=== PATIENT | male | born 1950 | race Caucasian/White ===

== ENCOUNTER 2018-05-19 12:36 | Emergency (ER) | payer MEDICARE ==
[2018-05-19] MEDS ORDERED: RX INFO: IV CONTRAST WAS GIVEN 1 EACH MISC MISCELLANE PRN (12:46)
[2018-05-19] MEDS ORDERED: MORPHINE SULFATE 4 MG/ML SYRINGE IVP STA (12:47)
[2018-05-19] MEDS ORDERED: ONDANSETRON 4 MG/2 ML VIAL IVP STA (12:47)
--- NOTE | 2018-05-19 13:09 | ED ---
Extremity Problem HPI <Low Amos - Last Filed: 05/19/18 17:01> - General Source: patient, RN notes reviewed Mode of arrival: ambulatory Limitations: no limitations <Gamal Martinez - Last Filed: 05/19/18 17:08> - General Chief complaint: Extremity Problem,Nontraumatic Stated complaint: leg pain Time Seen by Provider: 05/19/18 12:39 - History of Present Illness Initial comments: This is a 67-year-old male presents emergency Department chief complaint of right leg pain. He's had progressive worsening over the Last 5 days. He states he is seen at [facility] and told nothing was wrong. He states that he's been taking as [place] though presents having increasing pain and swelling. Patient states that he has no known vascular issues. Patient states she's had no trauma no fever no chills. Patient is a daily smoker. He states his chronic back issues but has had no issues with his lower extremities. Patient states that he feels they cannot move it because it so painful. (Gamal Martinez) - Related Data Home Medications Medication Instructions Recorded Confirmed No Known Home Medications 05/19/18 05/19/18 Allergies Allergy/AdvReac Type Severity Reaction Status Date / Time No Known Allergies Allergy Verified 05/19/18 12:54 Review of Systems ROS Other: All systems not noted in ROS Statement are negative. <Low Amos - Last Filed: 05/19/18 17:01> ROS Other: All systems not noted in ROS Statement are negative. <Gamal Martinez - Last Filed: 05/19/18 17:08> ROS Statement: Those systems with pertinent positive or pertinent negative responses have been documented in the HPI. Past Medical History Additional Past Medical History / Comment(s): BACK PAIN History of Any Multi-Drug Resistant Organisms: None Reported Additional Past Surgical History / Comment(s): THUMB SURGERY RIGHT HAND Past Psychological History: No Psychological Hx Reported Smoking Status: Former smoker Past Alcohol Use History: None Reported Past Drug Use History: None Reported, Prescription Drug Abuse <Gamal Martinez - Last Filed: 05/19/18 17:08> General Exam Limitations: no limitations General appearance: alert, in no apparent distress Respiratory exam: Present: normal lung sounds bilaterally. Absent: respiratory distress, wheezes, rales, rhonchi, stridor Cardiovascular Exam: Present: regular rate, normal rhythm, normal heart sounds. Absent: systolic murmur, diastolic murmur, rubs, gallop, clicks Extremities exam: Present: other (Right lower extremity is noted to the nail, there is no palpable dorsal pedispulse or posterior tibialis, Dopplers attempted unable to obtain pulse. There pulse at popliteal region ) <Gamal Martinez - Last Filed: 05/19/18 17:08> Course <Low Amos - Last Filed: 05/19/18 17:01> <Gamal Martinez - Last Filed: 05/19/18 17:08> Vital Signs 05/19/18 05/19/18 12:40 14:42 Temperature 98.0 F Pulse Rate 88 89 Respiratory 20 18 Rate Blood Pressure 207/81 172/77 O2 Sat by Pulse 97 97 Oximetry - Reevaluation(s) Reevaluation #1: 05/19/18 16:22 Patient reevaluated by myself, Dr. Amos. Computed tomography scan reviewed. Patient and family updated. Patient states he has been dealing with lower back pain since the legs for several weeks now. Patient does have some history of chronic lower back pain. Patient states his leg change color today. Patient states it was white however states it was black/purplish. Color has returned at this point. Unable to palpate pedal pulses. Cap refill 3-4 seconds on the right. Cap refill 2-3 seconds on the left. No abnormal temperature. No significant discomfort at this time. 05/19/18 16:42 Case was discussed in detail with Dr. Toussaint, who will come evaluate the patient. 05/19/18 17:01 Patient was seen by Dr. Toussaint who did talk to Dr. Ruiz, vascular surgeon at [facility] who will accept transfer. ER will be notified. (Low Amos) Medical Decision Making - Lab Data Result diagrams: 05/19/18 13:11 05/19/18 13:30 <Low Amos - Last Filed: 05/19/18 17:01> - Lab Data Result diagrams: 05/19/18 13:11 05/19/18 13:30 <Gamal Martinez - Last Filed: 05/19/18 17:08> - Medical Decision Making 67-year-old male presented for right leg pain. 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 Patient was evaluated by a vascular surgeon here and will be transferred to [facility]. Case discussed with Dr. Ruiz and Dr. Wilson ([facility]) - Lab Data Lab Results 05/19/18 05/19/18 05/19/18 Range/Units 13:11 13:11 13:30 WBC 14.0 H (3.8-10.6) k/uL RBC 3.99 L (4.30-5.90) m/uL Hgb 14.5 (13.0-17.5) gm/dL Hct 42.1 (39.0-53.0) % MCV 105.6 H (80.0-100.0) fL MCH 36.5 H (25.0-35.0) pg MCHC 34.6 (31.0-37.0) g/dL RDW 14.2 (11.5-15.5) % Plt Count 299 (150-450) k/uL Neutrophils % 80 % Lymphocytes % 11 % Monocytes % 7 % Eosinophils % 1 % Basophils % 0 % Neutrophils # 11.1 H (1.3-7.7) k/uL Lymphocytes # 1.5 (1.0-4.8) k/uL Monocytes # 1.0 (0-1.0) k/uL Eosinophils # 0.1 (0-0.7) k/uL Basophils # 0.0 (0-0.2) k/uL Macrocytosis Moderate PT 10.2 (9.0-12.0) sec INR 1.0 (<1.2) APTT 24.5 (22.0-30.0) sec Sodium 135 L (137-145) mmol/L Potassium 4.4 (3.5-5.1) mmol/L Chloride 100 (98-107) mmol/L Carbon Dioxide 23 (22-30) mmol/L Anion Gap 12 mmol/L BUN 19 (9-20) mg/dL Creatinine 0.80 (0.66-1.25) mg/dL Est GFR (CKD-EPI)AfAm >90 (>60 ml/min/1.73 sqM) Est GFR (CKD-EPI)NonAf >90 (>60 ml/min/1.73 sqM) Glucose 111 H (74-99) mg/dL Plasma Lactic Acid Berry (0.7-2.0) mmol/L Calcium 9.2 (8.4-10.2) mg/dL Total Bilirubin 0.9 (0.2-1.3) mg/dL AST 88 H (17-59) U/L ALT 64 (21-72) U/L Alkaline Phosphatase 109 (38-126) U/L Total Protein 6.8 (6.3-8.2) g/dL Albumin 3.9 (3.5-5.0) g/dL 05/19/18 Range/Units 13:30 WBC (3.8-10.6) k/uL RBC (4.30-5.90) m/uL Hgb (13.0-17.5) gm/dL Hct (39.0-53.0) % MCV (80.0-100.0) fL MCH (25.0-35.0) pg MCHC (31.0-37.0) g/dL RDW (11.5-15.5) % Plt Count (150-450) k/uL Neutrophils % % Lymphocytes % % Monocytes % % Eosinophils % % Basophils % % Neutrophils # (1.3-7.7) k/uL Lymphocytes # (1.0-4.8) k/uL Monocytes # (0-1.0) k/uL Eosinophils # (0-0.7) k/uL Basophils # (0-0.2) k/uL Macrocytosis PT (9.0-12.0) sec INR (<1.2) APTT (22.0-30.0) sec Sodium (137-145) mmol/L Potassium (3.5-5.1) mmol/L Chloride (98-107) mmol/L Carbon Dioxide (22-30) mmol/L Anion Gap mmol/L BUN (9-20) mg/dL Creatinine (0.66-1.25) mg/dL Est GFR (CKD-EPI)AfAm (>60 ml/min/1.73 sqM) Est GFR (CKD-EPI)NonAf (>60 ml/min/1.73 sqM) Glucose (74-99) mg/dL Plasma Lactic Acid Berry 1.4 (0.7-2.0) mmol/L Calcium (8.4-10.2) mg/dL Total Bilirubin (0.2-1.3) mg/dL AST (17-59) U/L ALT (21-72) U/L Alkaline Phosphatase (38-126) U/L Total Protein (6.3-8.2) g/dL Albumin (3.5-5.0) g/dL Disposition <Low Amos - Last Filed: 05/19/18 17:01> - Out of Hospital Transfer - Req. Specs Out of Hospital Transfer - Requested Specifics: Other Emergency Center ([facility]) <Gamal Martinez - Last Filed: 05/19/18 17:08> Clinical Impression: Chronic distal aortic occlusion, Right leg pain, Occlusion of artery of lower extremity Disposition: OTHER INSTITUTION NOT DEFINED Condition: Stable Referrals: None,Stated [REFERRING] - 1-2 days
[2018-05-19 13:38] LABS: Basophils % (A) 0 %; Eosinophils # (A) 0.1 k/uL (0-0.7); Eosinophils % (A) 1 %; HCT 42.1 % (39.0-53.0); HGB 14.5 gm/dL (13.0-17.5); Lymphocytes # (A) 1.5 k/uL (1.0-4.8); Lymphocytes % (A) 11 %; MCH 36.5 pg (25.0-35.0); MCHC 34.6 g/dL (31.0-37.0); MCV 105.6 fL (80.0-100.0); Macrocytosis Moderate; Mean Platelet Volume 7.4; Monocytes % (A) 7 %; Neutrophils # (A) 11.1 k/uL (1.3-7.7); Neutrophils % (A) 80 %; Platelet Count 299 k/uL (150-450); RBC 3.99 m/uL (4.30-5.90); RDW 14.2 % (11.5-15.5)
[2018-05-19 14:13] LABS: ALT 64 U/L (21-72); AST 88 U/L (17-59); Albumin 3.9 g/dL (3.5-5.0); Alkaline Phosphatase 109 U/L (38-126); Anion Gap 12 mmol/L; Blood Urea Nitrogen 19 mg/dL (9-20); Calcium 9.2 mg/dL (8.4-10.2); Carbon Dioxide 23 mmol/L (22-30); Chloride 100 mmol/L (98-107); Glucose 111 mg/dL (74-99); Potassium 4.4 mmol/L (3.5-5.1); Sodium 135 mmol/L (137-145); Total Bilirubin 0.9 mg/dL (0.2-1.3); Total Protein 6.8 g/dL (6.3-8.2)
[2018-05-19 14:13] LABS: Partial Thromboplastin Time 24.5 sec (22.0-30.0); Prothrombin Time 10.2 sec (9.0-12.0)
[2018-05-19 15:18] VITALS: RESP 18
--- NOTE | 2018-05-19 15:35 | CT ---
CTA right lower extremity HISTORY: Pain, pulseless right foot Helical acquisition obtained from the distal abdominal aorta through the lower extremities. Coronal a nd sagittal reconstructions performed only due to technical difficulties. The distal abdominal aorta shows occlusion of the infrarenal location. The measurement of the distal abdominal aorta is approximately 3.6 cm. There is atheromatous change bilaterally, common iliac, inte rnal and external iliac arteries are also occluded. Some reconstitution of the lower extremity arteri al supply is suspected but contrast enhancement is limited. The common femoral arteries are thought t o enhance on initial scan, CT scan shows some probable enhancement of the popliteal arteries as well as the anterior tibial and posterior tibial arteries bilaterally, peroneal artery on the lateral and the segmentally. Exam is limited however. There is soft tissue swelling noted especially in the right lower extremity distally and right foot. Diverticular change noted incidentally in the sigmoid colon . Urinary bladder is distended. Prostatic calcifications are noted. Facet arthropathy noted incidenta lly in the lower lumbar spine. Small umbilical hernia contains fat. IMPRESSION: Exam is limited technically. Distal abdominal aortic occlusion. Extensive atheromatous ch anges.
[2018-05-19] MEDS ORDERED: HEPARIN SODIUM,PORCINE 5,000 UNIT/ML 1 ML VIAL IV ONE (17:01)
[2018-05-19] MEDS ORDERED: HEPARIN SODIUM,PORCINE/D5W PMX 25,000 UNIT in DEXTROSE/WATER 1 500ML.BAG IV SCH (17:15)
[2018-05-19] MEDS ORDERED: HEPARIN SOD,PORK IN 0.45% NACL 25,000 UNIT in 0.45% NACL 1 500ML.BAG IV SCH (17:30)
[2018-05-19 17:44] VITALS: BP 181/86; PULSE 65; TEMP 98
== END 2018-05-19 17:55 | disposition other institution (70) ==
LOC: EC 12:36
DX: I70.201 Unspecified atherosclerosis of native arteries of extremities, right leg (principal); I70.0 Atherosclerosis of aorta; M54.5 Low back pain; Z87.891 Personal history of nicotine dependence
CPT/HCPCS: 36415; 80053; 83605; 85025; 85610; 85730; 73706; 99285; 96374; 96375 ×2; J2270; J1644 ×2; J2405; Q9967

== ENCOUNTER 2018-06-06 11:44 | Inpatient (IN) | payer MEDICARE ==
[2018-06-06] MEDS ORDERED: SODIUM CHLORIDE 0.9% 500 ML IV STA (12:14)
[2018-06-06] MEDS ORDERED: IPRATROPIUM-ALBUTEROL 3 ML NEB INHALATION STA (12:15)
--- NOTE | 2018-06-06 12:18 | ED ---
General Adult HPI - General Chief complaint: Weakness Stated complaint: Sob Time Seen by Provider: 06/06/18 12:00 Source: patient, family, RN notes reviewed, old records reviewed Mode of arrival: wheelchair Limitations: no limitations - History of Present Illness Initial comments: 67-year-old male presents with chief complaint of generalized weakness and fatigue. Patient is 2 weeks postop from a bypass and left lower extremity fasciotomy. Patient was in rehab yesterday, he was very short of breath, he did require supplemental oxygen. He states he has been short of breath for the past several days. He recently quit smoking approximately 3 weeks ago. Denies significant cough, denies fever or chills. Denies chest pain. Patient does report pain at the incision sites, but no significant abdominal or leg pain. Denies bleeding or purulence from his incisions. Denies nausea or vomiting, he has had some diarrhea. - Related Data Home Medications Medication Instructions Recorded Confirmed Atorvastatin [Lipitor] 40 mg PO HS 06/06/18 06/06/18 Diltiazem Cd [Cardizem Cd] 180 mg PO DAILY 06/06/18 06/06/18 Docusate [Colace] 100 mg PO BID 06/06/18 06/06/18 Gabapentin 600 mg PO TID 06/06/18 06/06/18 Hydrocodone/Acetaminophen [[place] 1 tab PO TID PRN 06/06/18 06/06/18 10-325] Lisinopril [Zestril] 5 mg PO DAILY 06/06/18 06/06/18 Multivitamins, Thera [Multivitamin 1 tab PO DAILY 06/06/18 06/06/18 (formulary)] Nicotine 7Mg/24Hr Patch [Habitrol 1 patch TRANSDERM DAILY 06/06/18 06/06/18 7Mg/24Hr Patch] Pantoprazole Sodium [Protonix] 20 mg PO BID 06/06/18 06/06/18 Rivaroxaban [Xarelto] 20 mg PO DAILY 06/06/18 06/06/18 Sotalol [Betapace] 120 mg PO BID 06/06/18 06/06/18 Tamsulosin HCl [Flomax] 0.4 mg PO DAILY 06/06/18 06/06/18 Allergies Allergy/AdvReac Type Severity Reaction Status Date / Time No Known Allergies Allergy Verified 06/06/18 12:24 Review of Systems ROS Statement: Those systems with pertinent positive or pertinent negative responses have been documented in the HPI. ROS Other: All systems not noted in ROS Statement are negative. Past Medical History Additional Past Medical History / Comment(s): BACK PAIN History of Any Multi-Drug Resistant Organisms: None Reported Additional Past Surgical History / Comment(s): THUMB SURGERY RIGHT HAND, bypass Past Psychological History: No Psychological Hx Reported Smoking Status: Former smoker Past Alcohol Use History: None Reported Past Drug Use History: None Reported, Prescription Drug Abuse General Exam Limitations: no limitations General appearance: alert, in no apparent distress Head exam: Present: atraumatic, normocephalic Eye exam: Present: normal appearance, PERRL ENT exam: Present: mucous membranes dry Neck exam: Present: normal inspection. Absent: tenderness, meningismus Respiratory exam: Present: normal lung sounds bilaterally. Absent: respiratory distress, wheezes Cardiovascular Exam: Present: normal rhythm, tachycardia GI/Abdominal exam: Present: soft, tenderness (Mild tenderness at the incision site). Absent: distended Extremities exam: Present: other (Distal pulses intact, strong pulses on the left DP, thready pulse rate DP, both extremities are warm.) Neurological exam: Present: alert, oriented X3, CN II-XII intact. Absent: motor sensory deficit Psychiatric exam: Present: normal affect, normal mood Skin exam: Present: warm, dry, pallor Course Vital Signs 06/06/18 06/06/18 06/06/18 11:47 12:54 13:00 Temperature 98.3 F Pulse Rate 123 H 107 H 102 H Respiratory 18 18 Rate Blood Pressure 113/71 116/71 O2 Sat by Pulse 98 95 Oximetry 06/06/18 06/06/18 13:02 16:00 Temperature Pulse Rate 107 H 107 H Respiratory 18 Rate Blood Pressure 124/70 O2 Sat by Pulse 96 Oximetry EKG Findings - EKG Comments: EKG Findings:: EKG: Age fibrillation with RVR, incomplete right bundle, rate of 1:15, QRS duration [address] segment elevation Medical Decision Making - Medical Decision Making 67 -year-old male presenting with generalized weakness. Patient does have some generalized abdominal pain on exam. He had recent aortofemoral bypass. Distal pulses are intact, and incisional sites are clean, no purulence. Workup reveals elevated white count of 26,000, hemoglobin 10.6 which is down trending, CMP is unremarkable. Urinalysis is clear, no signs of infection, chest x-ray negative for focal pneumonia. CT of the aorta with distal runoff is obtained given the patient's recent vascular surgery. The shows an occluded right femoral artery at 11.1 cm with good distal flow. This finding is discussed with the patient's vascular surgeon Dr. Ruiz. He saw the patient the office yesterday. He states this is normal postoperative vascular CT. CT also shows colitis which does indicate cause for patient's generalized abdominal pain. He has had recent antibiotic exposure, as well as some diarrhea. C. difficile toxin will be obtained. Lactic acid is normal in this patient. He receives IV hydration. He will be admitted for symptomatic treatment. Infectious disease placed on consult as well as gastroenterology at the recommendation of the patient's admitting physician Dr. Amanda. Patient is given broad-spectrum antibiotics in the emergency department. - Lab Data Result diagrams: 06/06/18 12:40 06/06/18 12:40 Lab Results 06/06/18 06/06/18 06/06/18 Range/Units 12:40 12:40 12:40 WBC 26.2 H* (3.8-10.6) k/uL RBC 3.12 L (4.30-5.90) m/uL Hgb 10.6 L D (13.0-17.5) gm/dL Hct 33.2 L (39.0-53.0) % MCV 106.5 H (80.0-100.0) fL MCH 34.0 (25.0-35.0) pg MCHC 31.9 (31.0-37.0) g/dL RDW 14.1 (11.5-15.5) % Plt Count 542 H (150-450) k/uL Neutrophils % 89 % Lymphocytes % 5 % Monocytes % 4 % Eosinophils % 0 % Basophils % 0 % Neutrophils # 23.4 H (1.3-7.7) k/uL Lymphocytes # 1.4 (1.0-4.8) k/uL Monocytes # 1.1 H (0-1.0) k/uL Eosinophils # 0.1 (0-0.7) k/uL Basophils # 0.0 (0-0.2) k/uL Macrocytosis Moderate PT (9.0-12.0) sec INR (<1.2) APTT (22.0-30.0) sec Sodium 137 (137-145) mmol/L Potassium 4.3 (3.5-5.1) mmol/L Chloride 103 (98-107) mmol/L Carbon Dioxide 25 (22-30) mmol/L Anion Gap 9 mmol/L BUN 23 H (9-20) mg/dL Creatinine 0.70 (0.66-1.25) mg/dL Est GFR (CKD-EPI)AfAm >90 (>60 ml/min/1.73 sqM) Est GFR (CKD-EPI)NonAf >90 (>60 ml/min/1.73 sqM) Glucose 119 H (74-99) mg/dL Plasma Lactic Acid Berry (0.7-2.0) mmol/L Calcium 8.9 (8.4-10.2) mg/dL Magnesium 2.2 (1.6-2.3) mg/dL Total Bilirubin 0.6 (0.2-1.3) mg/dL AST 31 (17-59) U/L ALT 43 (21-72) U/L Alkaline Phosphatase 143 H (38-126) U/L Total Creatine Kinase 50 L (55-170) U/L CK-MB (CK-2) 1.9 (0.0-2.4) ng/mL CK-MB (CK-2) Rel Index 3.8 Troponin I <0.012 (0.000-0.034) ng/mL NT-Pro-B Natriuret Pep pg/mL Total Protein 6.5 (6.3-8.2) g/dL Albumin 3.3 L (3.5-5.0) g/dL Urine Color Urine Appearance (Clear) Urine pH (5.0-8.0) Ur Specific Hardy (1.001-1.035) Urine Protein (Negative) Urine Glucose (UA) (Negative) Urine Ketones (Negative) Urine Blood (Negative) Urine Nitrite (Negative) Urine Bilirubin (Negative) Urine Urobilinogen (<2.0) mg/dL Ur Leukocyte Esterase (Negative) 06/06/18 06/06/18 06/06/18 Range/Units 12:40 12:40 12:40 WBC (3.8-10.6) k/uL RBC (4.30-5.90) m/uL Hgb (13.0-17.5) gm/dL Hct (39.0-53.0) % MCV (80.0-100.0) fL MCH (25.0-35.0) pg MCHC (31.0-37.0) g/dL RDW (11.5-15.5) % Plt Count (150-450) k/uL Neutrophils % % Lymphocytes % % Monocytes % % Eosinophils % % Basophils % % Neutrophils # (1.3-7.7) k/uL Lymphocytes # (1.0-4.8) k/uL Monocytes # (0-1.0) k/uL Eosinophils # (0-0.7) k/uL Basophils # (0-0.2) k/uL Macrocytosis PT 11.8 (9.0-12.0) sec INR 1.2 H (<1.2) APTT 27.9 (22.0-30.0) sec Sodium (137-145) mmol/L Potassium (3.5-5.1) mmol/L Chloride (98-107) mmol/L Carbon Dioxide (22-30) mmol/L Anion Gap mmol/L BUN (9-20) mg/dL Creatinine (0.66-1.25) mg/dL Est GFR (CKD-EPI)AfAm (>60 ml/min/1.73 sqM) Est GFR (CKD-EPI)NonAf (>60 ml/min/1.73 sqM) Glucose (74-99) mg/dL Plasma Lactic Acid Berry 1.9 (0.7-2.0) mmol/L Calcium (8.4-10.2) mg/dL Magnesium (1.6-2.3) mg/dL Total Bilirubin (0.2-1.3) mg/dL AST (17-59) U/L ALT (21-72) U/L Alkaline Phosphatase (38-126) U/L Total Creatine Kinase (55-170) U/L CK-MB (CK-2) (0.0-2.4) ng/mL CK-MB (CK-2) Rel Index Troponin I (0.000-0.034) ng/mL NT-Pro-B Natriuret Pep 1680 pg/mL Total Protein (6.3-8.2) g/dL Albumin (3.5-5.0) g/dL Urine Color Urine Appearance (Clear) Urine pH (5.0-8.0) Ur Specific Hardy (1.001-1.035) Urine Protein (Negative) Urine Glucose (UA) (Negative) Urine Ketones (Negative) Urine Blood (Negative) Urine Nitrite (Negative) Urine Bilirubin (Negative) Urine Urobilinogen (<2.0) mg/dL Ur Leukocyte Esterase (Negative) 06/06/18 Range/Units 13:40 WBC (3.8-10.6) k/uL RBC (4.30-5.90) m/uL Hgb (13.0-17.5) gm/dL Hct (39.0-53.0) % MCV (80.0-100.0) fL MCH (25.0-35.0) pg MCHC (31.0-37.0) g/dL RDW (11.5-15.5) % Plt Count (150-450) k/uL Neutrophils % % Lymphocytes % % Monocytes % % Eosinophils % % Basophils % % Neutrophils # (1.3-7.7) k/uL Lymphocytes # (1.0-4.8) k/uL Monocytes # (0-1.0) k/uL Eosinophils # (0-0.7) k/uL Basophils # (0-0.2) k/uL Macrocytosis PT (9.0-12.0) sec INR (<1.2) APTT (22.0-30.0) sec Sodium (137-145) mmol/L Potassium (3.5-5.1) mmol/L Chloride (98-107) mmol/L Carbon Dioxide (22-30) mmol/L Anion Gap mmol/L BUN (9-20) mg/dL Creatinine (0.66-1.25) mg/dL Est GFR (CKD-EPI)AfAm (>60 ml/min/1.73 sqM) Est GFR (CKD-EPI)NonAf (>60 ml/min/1.73 sqM) Glucose (74-99) mg/dL Plasma Lactic Acid Berry (0.7-2.0) mmol/L Calcium (8.4-10.2) mg/dL Magnesium (1.6-2.3) mg/dL Total Bilirubin (0.2-1.3) mg/dL AST (17-59) U/L ALT (21-72) U/L Alkaline Phosphatase (38-126) U/L Total Creatine Kinase (55-170) U/L CK-MB (CK-2) (0.0-2.4) ng/mL CK-MB (CK-2) Rel Index Troponin I (0.000-0.034) ng/mL NT-Pro-B Natriuret Pep pg/mL Total Protein (6.3-8.2) g/dL Albumin (3.5-5.0) g/dL Urine Color Yellow Urine Appearance Clear (Clear) Urine pH 5.5 (5.0-8.0) Ur Specific [place] 1.018 (1.001-1.035) Urine Protein Trace H (Negative) Urine Glucose (UA) Negative (Negative) Urine Ketones Negative (Negative) Urine Blood Negative (Negative) Urine Nitrite Negative (Negative) Urine Bilirubin Negative (Negative) Urine Urobilinogen <2.0 (<2.0) mg/dL Ur Leukocyte Esterase Negative (Negative) Disposition Clinical Impression: Dehydration, Colitis, Diarrhea Disposition: ADMITTED IP TO THIS [facility] Condition: Stable Is patient prescribed a controlled substance at d/c from ED?: No Referrals: Chilango Elizondo DO [Primary Care Provider] - 1-2 days Decision to Admit Reason: Admit from EC Decision Date: 06/06/18 Decision Time: 16:15
[2018-06-06 13:09] LABS: Basophils % (A) 0 %; Eosinophils # (A) 0.1 k/uL (0-0.7); Eosinophils % (A) 0 %; HCT 33.2 % (39.0-53.0); Lymphocytes # (A) 1.4 k/uL (1.0-4.8); Lymphocytes % (A) 5 %; MCHC 31.9 g/dL (31.0-37.0); MCV 106.5 fL (80.0-100.0); Macrocytosis Moderate; Mean Platelet Volume 6.9; Monocytes # (A) 1.1 k/uL (0-1.0); Monocytes % (A) 4 %; Neutrophils # (A) 23.4 k/uL (1.3-7.7); Neutrophils % (A) 89 %; Platelet Count 542 k/uL (150-450); RBC 3.12 m/uL (4.30-5.90); RDW 14.1 % (11.5-15.5)
[2018-06-06 13:11] LABS: ALT 43 U/L (21-72); AST 31 U/L (17-59); Albumin 3.3 g/dL (3.5-5.0); Alkaline Phosphatase 143 U/L (38-126); Anion Gap 9 mmol/L; Blood Urea Nitrogen 23 mg/dL (9-20); Calcium 8.9 mg/dL (8.4-10.2); Carbon Dioxide 25 mmol/L (22-30); Chloride 103 mmol/L (98-107); Glucose 119 mg/dL (74-99); HGB 10.6 gm/dL (13.0-17.5); Magnesium 2.2 mg/dL (1.6-2.3); Potassium 4.3 mmol/L (3.5-5.1); Sodium 137 mmol/L (137-145); Total Bilirubin 0.6 mg/dL (0.2-1.3); Total Protein 6.5 g/dL (6.3-8.2); WBC 26.2 k/uL (3.8-10.6)
[2018-06-06] MEDS ORDERED: VANCOMYCIN IV PER PHARMACY 1 EACH MISC MISCELLANE PRN (13:14)
[2018-06-06] MEDS ORDERED: cefTRIAXone IN SWFI 1,000 MG/10 ML SYRINGE IVP STA (13:14)
[2018-06-06] MEDS ORDERED: VANCOMYCIN 1,500 MG in SODIUM CHLORIDE 0.9% 250 ML IVPB STA (13:19)
[2018-06-06 13:20] LABS: Creatine Kinase 50 U/L (55-170)
[2018-06-06 13:21] LABS: INR 1.2 (<1.2); Partial Thromboplastin Time 27.9 sec (22.0-30.0); Prothrombin Time 11.8 sec (9.0-12.0)
[2018-06-06] MEDS ORDERED: SODIUM CHLORIDE 0.9% 500 ML IV ONE ×2 (13:21→16:41)
--- NOTE | 2018-06-06 13:32 | XR ---
EXAMINATION TYPE: XR chest 2V DATE OF EXAM: 06/06/2018 COMPARISON: NONE HISTORY: Weakness TECHNIQUE: Frontal and lateral views of the chest are obtained. FINDINGS: There is no focal air space opacity, pleural effusion, or pneumothorax seen. There is mild right hemidiaphragm elevation. The cardiac silhouette size is within normal limits. Healed fracture deformity of the left mid clavicle is present.. Moderate multilevel degenerative changes of the thora cic spine are noted. IMPRESSION: No acute cardiopulmonary process.
[2018-06-06 13:34] LABS: Creatine Kinase MB 1.9 ng/mL (0.0-2.4); Troponin I <0.012 ng/mL (0.000-0.034)
[2018-06-06 13:52] LABS: Appearance,Urine Clear (Clear); Bilirubin,Urine Negative (Negative); Blood,Urine Negative (Negative); Color,Urine Yellow; Glucose,Urine (UA) Negative (Negative); Ketones,Urine Negative (Negative); Leukocyte Esterase,Urine Negative (Negative); Nitrite,Urine Negative (Negative); PH, Urine 5.5 (5.0-8.0); Protein,Urine Trace (Negative); Specific Gravity,Urine 1.018 (1.001-1.035); Urobilinogen,Urine <2.0 mg/dL (<2.0)
[2018-06-06] MEDS ORDERED: MORPHINE SULFATE 4 MG/ML SYRINGE IVP STA (15:35)
--- NOTE | 2018-06-06 16:21 | CT ---
EXAMINATION TYPE: CT angio abd aorta w/Runoff DATE OF EXAM: 06/06/2018 COMPARISON: 05/19/2018 HISTORY: chest pain, SOB, bilateral leg numbness. hx of CABG and femoral bypass CT DLP: 3414.1 mGycm, Automated Exposure Control for Dose Reduction was Utilized. CONTRAST: CT scan of the abdomen and pelvis is performed with oral and with IV Contrast, patient injected with 205cc mL of Isovue 370. FINDINGS: VASCULATURE: There is complete occlusion of the infrarenal abdominal aorta with new aortoiliac bypass performed. T here is a new left superficial inguinal fluid collection that measures simple fluid attenuation measu ring 4.6 x 3 point for centimeters on series 4 image 86 without surrounding inflammatory change. This is favored to represent a seroma and is not contiguous with the adjacent common femoral artery and t herefore not favored to represent occluded pseudoaneurysm although that does remain a possibility. Mu ltiple prominent right superficial inguinal lymph nodes are noted. There is complete occlusion of the right femoral artery in a long segment measuring 11.1 cm with mario alberto nstitution just proximal to the popliteal artery from arterial collateralization. Right popliteal art kathya is patent however there is approximately 50% stenosis of the popliteal artery extending over appr oximately 1 cm in length due to noncalcific atheromatous plaquing. There is also nonhemodynamically s ignificant plaquing of the common peroneal trunk and anterior tibial artery with three-vessel runoff of the right lower extremity identified. There is nonhemodynamically significant atherosclerosis of the left femoral artery and approximately 60% stenosis of the left popliteal artery extending over approximately 3 cm in length. There is a nor mal trifurcation of the vasculature of the left lower extremity with three-vessel runoff to the left ankle. LUNG BASES: Minimal bibasilar subsegmental atelectasis. There is a small hiatal hernia. LIVER/GB: Grossly unremarkable although limited as enhancement is in the angiographic phase. PANCREAS: No pancreatic ductal dilatation is noted. SPLEEN: No splenomegaly. ADRENALS: Indeterminate 1.2 cm left adrenal gland nodule is present on series 4 image 31 for which fu rther characterization is recommended. Right adrenal gland is unremarkable. KIDNEYS: Kidneys enhance symmetrically without hydronephrosis. BOWEL: There is pericolonic fat stranding along the transverse colon and entirety of the descending c olon as well as the proximal sigmoid colon. Given its long segment involvement suspicion is for colit is of infectious or inflammatory etiology however ischemic etiology is also possible. Correlate with serum lactic acid levels. Numerous colonic diverticula are noted. No dilated large or small bowel. LYMPH NODES: No greater than 1cm abdominal or pelvic lymph nodes are appreciated. OSSEOUS STRUCTURES: Multilevel degenerative changes of the spine are present in addition to bilateral medial compartment arthropathy of the knees and moderate femoral acetabular arthropathy bilaterally. IMPRESSION: 1. 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 Vascular surgery consultation is recommended. 2. New aortoiliac bypass grafting without occlusion or evidence of leak. 3. Approximately 60% stenosis of the left popliteal artery extending over 3 cm in length. 4. Pericolonic fat stranding involving the transverse colon, splenic flexure, descending colon and pr oximal sigmoid colon. Suspicion is for colitis of infectious or inflammatory etiology however ischemi c etiology is possible and therefore correlation with serum lactate acid levels are recommended.
[2018-06-06] MEDS ORDERED: NICOTINE 7MG/24HR PATCH TRANSDERM STA (16:39)
[2018-06-06] MEDS ORDERED: NALOXONE 0.4 MG/ML 1 ML VIAL IV PRN (16:48)
[2018-06-06] MEDS: HYDROcodone/APAP 10-325MG 1 EACH TAB PO PRN (18:36)
[2018-06-06] MEDS: ATORVASTATIN 40 MG TAB PO SCH (21:33)
[2018-06-06] MEDS: VANCOMYCIN 1,500 MG in SODIUM CHLORIDE 0.9% 250 ML IVPB SCH (21:33)
[2018-06-06] MEDS: SOTALOL 120 MG TAB PO SCH (21:33)
[2018-06-06] MEDS: GABAPENTIN 300 MG CAP PO SCH (21:33)
[2018-06-06] MEDS: PANTOPRAZOLE 40 MG TABLET PO SCH (21:33)
--- NOTE | 2018-06-06 21:59 | HP ---
HISTORY AND PHYSICAL CHIEF COMPLAINT: This is a 67-year-old white male complaining of diffuse abdominal pain, left lower quadrant abdominal pain, extreme weakness and fatigue, status post rehab center, sent home a day ago after bypass surgery of his lower extremity fasciotomy and a femoropopliteal bypass 2 weeks ago. He continues to smoke. Due to not feeling good he came to the emergency room and was found to have colitis on the CT scan and was admitted with a high white count due to colitis. Vascular surgeons discussed his femoral CTA that was done on his legs and abdomen in the emergency room and they said the infection is not coming from a stent area in their opinion. I consulted vascular surgeon Dr. Birmingham to make sure. I consulted Infectious Disease also as well as GI. HOME MEDICINES: 1. Lipitor. 2. Cardizem CD. 3. Colace. 4. Gabapentin. 5. [place]. 6. Zestril. 7. Multivitamin. 8. Habitrol. 9. Protonix. 10.Xarelto. 11.Betapace. 12.Flomax. ALLERGIES: NEGATIVE. REVIEW OF SYSTEMS: Fourteen-point review of systems negative except for mentioned in HPI. PAST MEDICAL HISTORY: 1. Thumb surgery, right hand. 2. Bypass. 3. History of back pain. SOCIAL HISTORY: He is a former smoker. PHYSICAL EXAMINATION: Vital signs are stable and afebrile. Blood pressure 116/70, oxygen 95% in room air. CARDIOVASCULAR: S1, S2. Tachycardia in the low 100s. LUNGS: Clear. GI: Tenderness to palpation, left lower quadrant. No rebound. No mass. EXTREMITIES: No cyanosis, clubbing, edema. NEUROLOGIC: Cranial nerves are intact. PSYCH: Fair mood and affect. SKIN: Warm, dry, intact. EKG possible atrial fibrillation, rapid ventricular response. Incomplete bundle branch block. ASSESSMENT: 1. Acute colitis. 2. Leukocytosis secondary to colitis. Rule out other infectious source. Vascular surgeons was consulted. Infectious Disease consulted. Cardiology will be consulted for atrial fibrillation. Troponins are negative. He has got mild protein- calorie malnutrition with low albumin. Please see further orders. IV steroids will be started. Infectious disease consult is ordered. Stool cultures are ordered. Await multiple recommendations for surgeons. MMODL / IJN: [id number] /
[2018-06-06] MEDS: methylPREDNISolone SOD SUCCI 40 MG/ML 1 ML VIAL IV SCH (23:55)
[2018-06-07] MEDS: methylPREDNISolone SOD SUCCI 40 MG/ML 1 ML VIAL IV SCH ×4 (06:17→23:55)
[2018-06-07] MEDS: VANCOMYCIN 1,500 MG in SODIUM CHLORIDE 0.9% 250 ML IVPB SCH (06:17)
[2018-06-07 06:44] LABS: Basophils % (A) 0 %; Eosinophils % (A) 0 %; HCT 33.6 % (39.0-53.0); HGB 10.3 gm/dL (13.0-17.5); Hypochromasia Slight; Lymphocytes # (A) 0.4 k/uL (1.0-4.8); Lymphocytes % (A) 3 %; MCHC 30.8 g/dL (31.0-37.0); MCV 107.1 fL (80.0-100.0); Macrocytosis Moderate; Mean Platelet Volume 6.9; Monocytes # (A) 0.2 k/uL (0-1.0); Monocytes % (A) 2 %; Neutrophils % (A) 95 %; Platelet Count 517 k/uL (150-450); RBC 3.13 m/uL (4.30-5.90); RDW 14.1 % (11.5-15.5); WBC 13.7 k/uL (3.8-10.6)
[2018-06-07 06:57] LABS: ALT 44 U/L (21-72); AST 29 U/L (17-59); Albumin 2.8 g/dL (3.5-5.0); Alkaline Phosphatase 105 U/L (38-126); Anion Gap 7 mmol/L; Blood Urea Nitrogen 17 mg/dL (9-20); Calcium 8.5 mg/dL (8.4-10.2); Carbon Dioxide 23 mmol/L (22-30); Chloride 108 mmol/L (98-107); Glucose 138 mg/dL (74-99); Potassium 4.4 mmol/L (3.5-5.1); Sodium 138 mmol/L (137-145); Total Bilirubin 0.4 mg/dL (0.2-1.3); Total Protein 5.7 g/dL (6.3-8.2)
[2018-06-07] MEDS: LISINOPRIL 5 MG TAB PO SCH (09:23)
[2018-06-07] MEDS: GABAPENTIN 300 MG CAP PO SCH ×3 (09:23→22:04)
[2018-06-07] MEDS: RIVAROXABAN 20 MG TAB PO SCH (09:24)
[2018-06-07] MEDS: TAMSULOSIN 0.4 MG CAP.ER.24H PO SCH (09:24)
[2018-06-07] MEDS: DILTIAZEM CD 180 MG CAP.ER.24H PO SCH (09:24)
[2018-06-07] MEDS: PANTOPRAZOLE 40 MG TABLET PO SCH (09:24)
[2018-06-07] MEDS: SOTALOL 120 MG TAB PO SCH ×2 (09:24→22:04)
[2018-06-07 11:50] VITALS: BMI 26.4
[2018-06-07] MEDS: metroNIDAZOLE 500 MG TAB PO SCH ×3 (12:08→22:03)
--- NOTE | 2018-06-07 12:57 | CONS ---
CONSULTATION DATE OF SERVICE: June 07, 2018. REQUESTING PHYSICIAN: Dr. Chris Amanda and . REASON FOR CONSULTATION: Abdominal pain, possible colitis. HISTORY OF PRESENT ILLNESS: The patient is a 67 -year-old white male who was admitted to hospital complaining of diffuse left lower quadrant abdominal pain that started approximately a week ago. The patient is status post femoral popliteal bypass surgery 2 weeks ago and was discharged about a week ago to rehab place. While in the rehab, he started experiencing left lower quadrant abdominal pain has been progressively getting worse. He started having diarrhea with bowel movements anywhere from 1-2 a day which are loose in consistency, but no blood or mucus in the stool. From the rehab, he was discharged home 2 days ago and while at home, the pain continued to progressively get worse associated with weakness, fatigue, some nausea but no emesis. He thought he had some chills. No fever. Came to the emergency room and subsequently had a CT of the abdomen and pelvis done that showed thickening of the descending colon, sigmoid colon and proximal transverse colon consistent with acute colitis, possibly ischemic in nature. Also, there was a new left superficial inguinal fluid collection that measures about 4.6-3 cm, possibly a seroma but infection could not be excluded. In the emergency room, the patient was started on IV vancomycin and ID has been consulted. This morning the patient states the pain is improving. Nausea has subsided. He had 1 loose bowel movement. He had a stool for C diff done, which was reported as positive this morning. The patient never had C diff colitis in the past. PAST MEDICAL HISTORY: Significant for hypertension, peripheral vascular disease, hypercholesteremia, chronic back pain. PAST SURGICAL HISTORY: Recent fem popliteal bypass surgery 2 weeks ago, right hand surgery. MEDICATIONS: At home include Lipitor, Cardizem, Colace, gabapentin, [place], Habitrol, multivitamin, Protonix, Xarelto, Betapace, Flomax. ALLERGIES: None. SOCIAL HISTORY: Remote history of smoking but no alcohol use. FAMILY HISTORY: Unremarkable. REVIEW OF SYSTEMS: Cardiopulmonary: He denies any chest pain, shortness of breath. Genitourinary: No dysuria or hematuria. MUSCULOSKELETAL: Chronic back pain. Neurology: Unremarkable. Psychiatric unremarkable. ENT vision unremarkable. Constitutional: No recent weight loss. No fever, chills, night sweats. Hematology unremarkable. Endocrine unremarkable. Psychiatric unremarkable. PHYSICAL EXAMINATION: Appears comfortable in no apparent distress. VITAL SIGNS: Stable. Blood pressure is 124/75, pulse rate 106, temperature 97. HEENT examination unremarkable. Conjunctivae pink. sclerae anicteric. Oral cavity no lesions. Neck no JVD or lymph node enlargement. CHEST: Clear to auscultation. HEART: Regular rate and rhythm. ABDOMEN: Soft. There was severe tenderness in the left lower quadrant area but no rebound or rigidity. The rest of the abdomen was benign. Bowel sounds are positive. No organomegaly. Extremities: No pedal edema. Skin no rashes. Neuro: He is alert and oriented x3. No focal deficits. LAB DATA: From the time of admission to the hospital: WBC was 26.2, hemoglobin 10.6, platelets of 542. PTT/INR within normal limits. Today, WBC is down to 13.7, hemoglobin 10.3, and platelets are normal. Basic metabolic panel is within normal limits. BUN 17, creatinine 0.6. Lactic acid is 1.9. Stool for C diff toxin was positive. IMPRESSION: This is a patient who presents to the hospital with left lower quadrant abdominal pain for the last 1 week duration. He is status post femoral-popliteal bypass surgery 2 weeks ago for severe occlusive peripheral vascular disease. He also started having mild diarrhea with 1-2 loose watery bowel movements daily for the last 1 week. He was discharged home from rehab. He came to the emergency room last night and a CT angiogram showed some fluid collection in the left inguinal area as well as thickening of the transverse colon, descending colon, sigmoid colon consistent with acute colitis. The clinical picture is very consistent with acute ischemic colitis with superimposed C diff colitis. Stool for C diff toxin was reported as positive yesterday. The patient has been having some diarrhea for the last 1 week. Serum lactic acid was 1.9. The patient presently on IV vancomycin for possible infection of the graft. RECOMMENDATIONS: 1. Continue with a clear liquid diet. 2. Start on oral Flagyl. 3. Agree with ID consultation. 4. Because of the clinical suspicion for possible concomitant ischemic colitis, we will keep him on a clear liquid diet and follow him very closely and possible surgical consultation if he has any worsening abdominal pain. Thank you for this consultation. We will follow the patient with you during hospital stay. MMODL / IJN: [id number] /
--- NOTE | 2018-06-07 14:16 | ECHOF ---
Referral Reason:afib MEASUREMENTS -------- HEIGHT: 188.0 cm WEIGHT: 93.0 kg BP: 115/60 IVSd: 1.2 cm (0.6 - 1.1) LVIDd: 4.4 cm (3.9 - 5.3) LVPWd: 1.2 cm (0.6 - 1.1) EDV(Teich): 89 ml IVSs: 1.7 cm LVIDs: 3.4 cm LVPWs: 1.6 cm %IVS Thck: 50 % ESV(Teich): 46 ml EF(Teich): 48 % %FS: 24 % SV(Teich): 43 ml LA Diam: 3.8 cm (2.7 - 3.8) RVIDd: 3.5 cm (< 3.3) IVC: 21.20 mm LALs A4C: 5.3 cm LAAs A4C: 18.6 cm LAESV A-L A4C: 55 ml LAESV MOD A4C: 52 ml LALs A2C: 6.1 cm LAAs A2C: 22.3 cm LAESV A-L A2C: 69 ml LAESV MOD A2C: 64 ml LAESV(A-L): 66 ml LAESV Index (A-L): 30.15 ml/m HR_2Ch_Q: 95 bpm HR_4Ch_Q: 95 bpm LVVED_2Ch_Q: 114 ml LVVED_4Ch_Q: 114 ml LVVED_BiP_Q: 115 ml LVVES_2Ch_Q: 50 ml LVVES_4Ch_Q: 46 ml LVVES_BiP_Q: 47 ml LVEF_2Ch_Q: 56 % LVEF_4Ch_Q: 60 % LVEF_BiP_Q: 59 % LVSV_2Ch_Q: 64 ml LVSV_4Ch_Q: 68 ml LVSV_BiP_Q: 69 ml LVCO_2Ch_Q: 6.1 l/min LVCO_4Ch_Q: 6.5 l/min LVCO_BiP_Q: 6.5 l/min LVLs_2Ch_Q: 7.3 cm LVLs_4Ch_Q: 7.2 cm LVLd_2Ch_Q: 8.7 cm LVLd_4Ch_Q: 9.0 cm Ao Diam: 4.0 cm (2.0 - 3.7) AV Cusp: 2.8 cm (1.5 - 2.6) EPSS: 0.4 cm MV DecT: 254 ms MV PHT: 70 ms MVA By PHT: 3.1 cm AV Vmax: 1.17 m/s AV maxP.43 mmHg MV EF SLOPE: 132.38 mm/s (70 - 150) MV EXCURSION: 18.81 mm (> 18.000) FINDINGS -------- Atrial fibrillation. This was a technically good study. The left ventricular size is normal. There is borderline concentric left ventricular hypertrophy. Overall left ventricular systolic function is low-normal with, an EF between 50 - 55 %. The right ventricle is mildly enlarged. LA is midly dilated 29-33ml/m2. The right atrium is normal in size. There is mild aortic valve sclerosis. The mitral valve leaflets are mildly thickened. Mild mitral annular calcification present. Mild m itral regurgitation is present. The tricuspid valve appears structurally normal. Trace/mild (physiologic) pulmonic regurgitation. The aortic root is dilated measuring 4.0cm. Normal inferior vena cava with normal inspiratory collapse consistent with estimated right atrial pre ssure of 5 mmHg. The inferior vena cava is mildly dilated. There is no pericardial effusion. CONCLUSIONS -------- 1. Atrial fibrillation. 2. This was a technically good study. 3. The left ventricular size is normal. 4. There is borderline concentric left ventricular hypertrophy. 5. Overall left ventricular systolic function is low-normal with, an EF between 50 - 55 %. 6. The right ventricle is mildly enlarged. 7. LA is midly dilated 29-33ml/m2. 8. The right atrium is normal in size. 9. There is mild aortic valve sclerosis. 10. The mitral valve leaflets are mildly thickened. 11. Mild mitral annular calcification present. 12. Mild mitral regurgitation is present. 13. The tricuspid valve appears structurally normal. 14. Trace/mild (physiologic) pulmonic regurgitation. 15. The aortic root is dilated measuring 4.0cm. 16. Normal inferior vena cava with normal inspiratory collapse consistent with estimated right atrial pressure of 5 mmHg. 17. The inferior vena cava is mildly dilated. 18. There is no pericardial effusion. CLERICAL SUPERVISOR: Vivi Gates [facility]
--- NOTE | 2018-06-07 14:18 | P.GSCN ---
History of Present Illness Consult date: 06/07/18 Reason for Consult: Vascular occlusion Requesting physician: Chris Amanda History of present illness: This is a 67-year-old gentleman who follows with Dr. Chilango Elizondo on an outpatient basis. He has a previous medical history of vascular disease with aortoiliac bypass approximately [address] Chan at [facility], back pain, and previous tobacco dependence. He presented to [facility] emergency room from rehab with complaints of abdominal pain, weakness , and fatigue. In the emergency room he had a CTA of the abdomen which demonstrated complete occlusion of the right femoral artery a long segment with reconstitution distally just proximal to the origin of the popliteal artery and patency of the remaining vasculature of the right lower extremity other than a short segment of approximately 50% stenosis of the right popliteal artery as well as new aortoiliac bypass grafting without occlusion or evidence of leak. Results of CTA were discussed with Dr. Chan by the emergency room physicians, Dr. Chan indicated he had seen the patient the day before in the office, and he felt this was a normal postoperative vascular CTA. The patient was admitted for workup for colitis, and he is positive for C. diff. Dr. Birmingham was consulted for surgical opinion to make sure abdominal pain and leukocytosis is not related to the patient's vascular surgery. Review of Systems Review of systems was completed and was negative except as noted. - Constitutional Reports fatigue, Reports weakness - Respiratory Reports dyspnea - Gastrointestinal Reports as per HPI, Reports abdominal pain, Reports diarrhea - Neurological Neurologic Comment(s): Patient does state he has some numbness in his right lower extremity, which is unchanged since surgery. Past Medical History Past Medical History: Vascular Disorder Additional Past Medical History / Comment(s): BACK PAIN History of Any Multi-Drug Resistant Organisms: None Reported Additional Past Surgical History / Comment(s): THUMB SURGERY RIGHT HAND, femoral bypass may 2018 with left lower leg fasciotomy Past Anesthesia/Blood Transfusion Reactions: No Reported Reaction Past Psychological History: No Psychological Hx Reported Smoking Status: Former smoker Past Alcohol Use History: None Reported Past Drug Use History: None Reported, Prescription Drug Abuse - Past Family History Father Family Medical History: No Reported History Mother Family Medical History: Cancer Medications and Allergies Home Medications Medication Instructions Recorded Confirmed Type Atorvastatin [Lipitor] 40 mg PO HS 06/06/18 06/06/18 History Diltiazem Cd [Cardizem Cd] 180 mg PO DAILY 06/06/18 06/06/18 History Docusate [Colace] 100 mg PO BID 06/06/18 06/06/18 History Gabapentin 600 mg PO TID 06/06/18 06/06/18 History Hydrocodone/Acetaminophen [[place] 1 tab PO TID PRN 06/06/18 06/06/18 History 10-325] Lisinopril [Zestril] 5 mg PO DAILY 06/06/18 06/06/18 History Multivitamins, Thera [Multivitamin 1 tab PO DAILY 06/06/18 06/06/18 History (formulary)] Nicotine 7Mg/24Hr Patch [Habitrol 1 patch TRANSDERM DAILY 06/06/18 06/06/18 History 7Mg/24Hr Patch] Pantoprazole Sodium [Protonix] 20 mg PO BID 06/06/18 06/06/18 History Rivaroxaban [Xarelto] 20 mg PO DAILY 06/06/18 06/06/18 History Sotalol [Betapace] 120 mg PO BID 06/06/18 06/06/18 History Tamsulosin HCl [Flomax] 0.4 mg PO DAILY 06/06/18 06/06/18 History Allergies Allergy/AdvReac Type Severity Reaction Status Date / Time No Known Allergies Allergy Verified 06/06/18 12:24 Surgical - Exam Vital Signs Temp Pulse Resp BP Pulse Ox 98.3 F 123 H 18 113/71 98 06/06/18 11:47 06/06/18 11:47 06/06/18 11:47 06/06/18 11:47 06/06/18 11:47 - General well developed, well nourished, no distress, no pain, cachectic - Eyes PERRL, normal ocular movement - ENT no hearing loss - Neck no masses, no bruits, trachea midline - Respiratory Lungs sounds diminished bilaterally. Respirations even, nonlabored. Currently on 2 L nasal cannula with oxygen saturation 95%. - Cardiovascular S1, S2 present. Irregular rate and rhythm, atrial fibrillation on telemetry. Palpable radial, DP pulses bilaterally although right DP pulse not as strong as left. No edema present. No calf pain or tenderness noted. - Abdomen Abdomen: soft, surgical scars - Genitourinary Deferred - Rectum Deferred - Integumentary Skin is warm and dry. Mid lower abdominal incision as well as bilateral groin incisions well approximated without drainage, dressings reapplied to bilateral groins. Right lower extremity medial and lateral fasciotomy sites well approximated with sutures and danial without drainage. Right lower extremity warm, pink, with good cap refill. - Neurologic normal coordination, normal sensation - Musculoskeletal Does walk with a walker normal gait - Psychiatric oriented to time, oriented to person, oriented to place, speech is normal, memory intact Results - Labs 06/07/18 06:28 06/07/18 06:27 Abnormal Lab Results - Last 24 Hours (Table) 06/06/18 06/06/18 06/06/18 Range/Units 12:40 13:40 21:00 WBC (3.8-10.6) k/uL RBC (4.30-5.90) m/uL Hgb (13.0-17.5) gm/dL Hct (39.0-53.0) % MCV (80.0-100.0) fL MCHC (31.0-37.0) g/dL Plt Count (150-450) k/uL Neutrophils # (1.3-7.7) k/uL Lymphocytes # (1.0-4.8) k/uL INR 1.2 H (<1.2) Chloride (98-107) mmol/L Creatinine (0.66-1.25) mg/dL Glucose (74-99) mg/dL Total Protein (6.3-8.2) g/dL Albumin (3.5-5.0) g/dL Urine Protein Trace H (Negative) C. difficile (EIA) Intrp Positive A (Negative) 06/07/18 06/07/18 Range/Units 06:27 06:28 WBC 13.7 H (3.8-10.6) k/uL RBC 3.13 L (4.30-5.90) m/uL Hgb 10.3 L (13.0-17.5) gm/dL Hct 33.6 L (39.0-53.0) % MCV 107.1 H (80.0-100.0) fL MCHC 30.8 L (31.0-37.0) g/dL Plt Count 517 H (150-450) k/uL Neutrophils # 13.0 H (1.3-7.7) k/uL Lymphocytes # 0.4 L (1.0-4.8) k/uL INR (<1.2) Chloride 108 H (98-107) mmol/L Creatinine 0.60 L (0.66-1.25) mg/dL Glucose 138 H (74-99) mg/dL Total Protein 5.7 L (6.3-8.2) g/dL Albumin 2.8 L (3.5-5.0) g/dL Urine Protein (Negative) C. difficile (EIA) Intrp (Negative) Diabetes panel 06/07/18 Range/Units 06:27 Sodium 138 (137-145) mmol/L Potassium 4.4 (3.5-5.1) mmol/L Chloride 108 H (98-107) mmol/L Carbon Dioxide 23 (22-30) mmol/L BUN 17 (9-20) mg/dL Creatinine 0.60 L (0.66-1.25) mg/dL Glucose 138 H (74-99) mg/dL Calcium 8.5 (8.4-10.2) mg/dL AST 29 (17-59) U/L ALT 44 (21-72) U/L Alkaline Phosphatase 105 (38-126) U/L Total Protein 5.7 L (6.3-8.2) g/dL Albumin 2.8 L (3.5-5.0) g/dL Calcium panel 06/07/18 Range/Units 06:27 Calcium 8.5 (8.4-10.2) mg/dL Albumin 2.8 L (3.5-5.0) g/dL Pituitary panel 06/07/18 Range/Units 06:27 Sodium 138 (137-145) mmol/L Potassium 4.4 (3.5-5.1) mmol/L Chloride 108 H (98-107) mmol/L Carbon Dioxide 23 (22-30) mmol/L BUN 17 (9-20) mg/dL Creatinine 0.60 L (0.66-1.25) mg/dL Glucose 138 H (74-99) mg/dL Calcium 8.5 (8.4-10.2) mg/dL Adrenal panel 06/07/18 Range/Units 06:27 Sodium 138 (137-145) mmol/L Potassium 4.4 (3.5-5.1) mmol/L Chloride 108 H (98-107) mmol/L Carbon Dioxide 23 (22-30) mmol/L BUN 17 (9-20) mg/dL Creatinine 0.60 L (0.66-1.25) mg/dL Glucose 138 H (74-99) mg/dL Calcium 8.5 (8.4-10.2) mg/dL Total Bilirubin 0.4 (0.2-1.3) mg/dL AST 29 (17-59) U/L ALT 44 (21-72) U/L Alkaline Phosphatase 105 (38-126) U/L Total Protein 5.7 L (6.3-8.2) g/dL Albumin 2.8 L (3.5-5.0) g/dL - Imaging Chest x-ray: report reviewed, image reviewed CT scan - abdomen: report reviewed, image reviewed EKG: image reviewed Assessment and Plan (1) A-fib Current Visit: Yes Status: Acute Code(s): I48.91 - UNSPECIFIED ATRIAL FIBRILLATION SNOMED Code(s): 34061206 (2) History of [id number] bypass Current Visit: Yes Status: Chronic Code(s): Z95.828 - PRESENCE OF OTHER VASCULAR IMPLANTS AND GRAFTS SNOMED Code(s): 870416696 (3) Colitis Current Visit: Yes Status: Acute Code(s): K52.9 - NONINFECTIVE GASTROENTERITIS AND COLITIS, UNSPECIFIED SNOMED Code(s): 74335158 (4) Right leg pain Current Visit: Yes Status: Chronic Code(s): M79.604 - PAIN IN RIGHT LEG SNOMED Code(s): 442445307 Plan: The patient was seen and examined at the bedside. Chart/diagnostics were reviewed. The case was discussed in detail with Dr. Birmingham. The patient's immediate medical problems do not seem to stem from recent vascular surgery. Continue with current management per primary care service, GI, infectious disease, and cardiology. Increase activity, ambulate as tolerated. Keep incisions covered with dry dressings. Elevate lower extremities. We will continue to monitor the patient but no further treatment recommendations at this time. Thank you Dr. Amanda for this consult. Please call us with any questions. Time with Patient: Greater than 30
[2018-06-07] MEDS: CHERRY FLAVOR 60 ML BOTTLE PO SCH ×3 (14:45→23:56)
[2018-06-07] MEDS: VANCOMYCIN ORAL SOLUTION 250 MG/5 ML BOTTLE PO SCH ×3 (14:45→23:55)
--- NOTE | 2018-06-07 19:21 | PN ---
PROGRESS NOTE SUBJECTIVE: A 67-year-old white male who is feeling better with IV steroids I gave in the last 24 hours. His left lower quadrant abdominal pain is better. His white count is down to 14,000. GI is soft. Agreed to continue on oral Flagyl and clear liquid diet and get Infectious Disease involved. They want a surgical consultation, which will be done if his pain worsens, but his pain is better, as he possibly has some ischemic colitis possibility, but he is improving from my standpoint over the last 24 hours on IV Solu- Medrol, which would treat the colitis. Surgery and GI both saw him. Surgery recommendations include by Dr. Birmingham's group for vascular surgery, they do not think the problems are from a recent vascular surgery. Will continue with current treatment. Patient is definitely improving from medical standpoint at this time. Continue with steroids and Flagyl. [place] / PAULETTE: [id number] /
--- NOTE | 2018-06-07 20:15 | CONS ---
CONSULTATION DATE OF SERVICE: 06/07/2018. REASON FOR CONSULTATION: Colitis. HISTORY OF PRESENT ILLNESS: The patient is a 67-year-old male with a past medical history significant for peripheral vascular disease. The patient is status post aortoiliac bypass surgery done 2 weeks ago at [facility]. The patient did say that out of surgery. He started having diarrhea there. However, the patient was not very clear if he has any stool for C diff checked or he was treated with antibiotic therapy. The patient is now presenting to the ER at [facility] yesterday morning with chief complaint of generalized weakness and fatigue. The patient was at rehab yesterday and he noticed to be increasing shortness of breath requiring supplemental oxygen, but no significant cough or any sputum production. The patient denies any significant pain at the incision site, which he has still on his right leg and bilateral groin area. On arrival to the ER, the patient did not have any high-grade fever. However, the patient's white count was elevated 26.2 1000. Patient did have a UA that was negative. Stool for C difficile was done which came back positive. He was started on oral Flagyl in addition to IV vancomycin and Infectious Disease was consulted for further recommendation regarding antibiotic therapy. The patient has been complaining of multiple loose stools for the last 2 weeks and has 2 loose stools this morning. The patient denies any blood or mucus in it. He did have some crampy lower abdominal pain with intensity about 3 to 4/10, and no radiation. Has been nauseated but no vomiting and is able to keep his food down. REVIEW OF SYSTEMS: Constitutional: Positive for weakness but no high-grade fever. Eyes no complaint. ENT no complaint. Respiratory no complaint. Cardiovascular no complaint. Genitourinary no complaint. Pulmonary no complaint. Gastrointestinal as per HPI. Musculoskeletal no complaint. Integumentary as per HPI. Psychological no complaint. Endocrine no complaint. Neurologic no complaint. PAST MEDICAL HISTORY: Significant for peripheral arterial disease and chronic back pain. PAST SURGICAL HISTORY: Left lower leg fasciotomy, thumb surgery and aortic bypass surgery 2 weeks ago. SOCIAL HISTORY: The patient has remote history of smoking. No drinking or drug use. FAMILY HISTORY: Mother with history of cancer, but unknown type. ALLERGIES: No known drug allergies. MEDICATION: Currently include the patient is on Fithian, Lipitor, Cardizem, Neurontin, Zestril, Solu- Medrol, Flagyl Narcan, Protonix, Xarelto, Betapace, Flomax, vancomycin 250 p.o. q.6 hours. ON EXAMINATION: Blood pressure is 105/60 with a pulse of 90, temperature 97.4. He is 96% on 2 L nasal cannula. General description is an elderly male lying in bed in no distress. No tachypnea or accessory muscles of respiration use. HEENT: Shows no pallor or scleral icterus. Oral mucosa membranes are dry. No pharyngeal erythema or thrush. Neck trachea central. No thyromegaly. Lungs unlabored breathing. Clear to auscultation anteriorly. No wheeze or crackles. Heart S1, S2. Regular rate and rhythm. Abdomen soft, mildly tender in lower quadrant area, left side. No guarding. No rigidity. No organomegaly. Extremities: No edema of the feet. Examination of the right leg incision looks clean with no evidence of any cellulitis or any foul-smelling drainage. Bilateral groin wound looks clean with no significant drainage. Neurological: Patient is awake, alert, oriented x3. Mood and affect normal. LABS: Hemoglobin is 10.8, white count of 26.2 with a BUN of 17, creatinine 0.60. Electrolytes have been normal. Liver enzymes are normal. UA has been negative. Stool for C was positive. Chest x-ray report negative for pneumonia. DIAGNOSTIC IMPRESSION AND PLAN: 1. Patient admitted to the hospital with generalized weakness, no energy in a patient who does have diarrhea for almost 2 weeks since he had surgery done at the [facility], now with elevated white count and stool for C difficile is positive likely representing asymptomatic C diff infection. 2. Patient who did have bilateral groin as well as the right leg wound and the incision looks clean with no evidence of any cellulitis. PLAN: 1. Discontinue IV vancomycin. 2. We will add vancomycin 250 p.o. q.6 hours and continue with Flagyl. 3. We will follow up on the clinical condition and culture to further adjust medication if needed. Thank you for this consultation. We will follow the patient along with you. MMODL / IJN: [id number] /
[2018-06-07] MEDS ORDERED: VANCOMYCIN TROUGH DUE 1 EACH MISC MISCELLANE ONE (21:00)
[2018-06-07] MEDS: ATORVASTATIN 40 MG TAB PO SCH (22:04)
[2018-06-08] MEDS: methylPREDNISolone SOD SUCCI 40 MG/ML 1 ML VIAL IV SCH ×4 (06:29→23:20)
[2018-06-08] MEDS: VANCOMYCIN ORAL SOLUTION 250 MG/5 ML BOTTLE PO SCH ×4 (06:30→23:20)
[2018-06-08] MEDS: CHERRY FLAVOR 60 ML BOTTLE PO SCH ×4 (06:30→23:20)
[2018-06-08 06:40] LABS: Basophils % (A) 0 %; Eosinophils % (A) 0 %; HCT 33.9 % (39.0-53.0); HGB 10.8 gm/dL (13.0-17.5); Hypochromasia Slight; Lymphocytes # (A) 0.8 k/uL (1.0-4.8); Lymphocytes % (A) 6 %; MCHC 31.8 g/dL (31.0-37.0); MCV 109.9 fL (80.0-100.0); Macrocytosis Marked; Mean Platelet Volume 6.9; Monocytes # (A) 0.3 k/uL (0-1.0); Monocytes % (A) 2 %; Neutrophils # (A) 12.8 k/uL (1.3-7.7); Neutrophils % (A) 91 %; Platelet Count 526 k/uL (150-450); RBC 3.09 m/uL (4.30-5.90); RDW 14.4 % (11.5-15.5)
[2018-06-08 06:53] LABS: Albumin 2.8 g/dL (3.5-5.0); Anion Gap 5 mmol/L; Calcium 8.8 mg/dL (8.4-10.2); Carbon Dioxide 25 mmol/L (22-30); Chloride 109 mmol/L (98-107); Glucose 153 mg/dL (74-99); Sodium 139 mmol/L (137-145); Total Bilirubin 0.4 mg/dL (0.2-1.3); Total Protein 5.6 g/dL (6.3-8.2)
[2018-06-08 06:55] LABS: ALT 48 U/L (21-72); AST 31 U/L (17-59); Alkaline Phosphatase 83 U/L (38-126); Blood Urea Nitrogen 19 mg/dL (9-20); Potassium 4.7 mmol/L (3.5-5.1)
[2018-06-08] MEDS: RIVAROXABAN 20 MG TAB PO SCH (08:46)
[2018-06-08] MEDS: metroNIDAZOLE 500 MG TAB PO SCH ×3 (08:46→21:41)
[2018-06-08] MEDS: LISINOPRIL 5 MG TAB PO SCH (08:46)
[2018-06-08] MEDS: DILTIAZEM CD 180 MG CAP.ER.24H PO SCH (08:46)
[2018-06-08] MEDS: SOTALOL 120 MG TAB PO SCH (08:46)
[2018-06-08] MEDS: GABAPENTIN 300 MG CAP PO SCH ×3 (08:46→21:41)
[2018-06-08] MEDS: TAMSULOSIN 0.4 MG CAP.ER.24H PO SCH (08:47)
--- NOTE | 2018-06-08 10:31 | P.CRDCN ---
History of Present Illness Consult date: 06/08/18 Requesting physician: Chris Amanda Consult reason: atrial fibrillation Chief complaint: Abdominal pain and diarrhea History of present illness: 6 is a 67-year-old gentleman with history of hypertension, hyperlipidemia, PAD and PVD, he underwent aorta iliac bypass approximately [address] Ruiz at the [facility], nicotine dependence, history of DVT on xarelto, presents to the hospital on this occasion with symptoms of abdominal pain and diarrhea stools. Patient was found to be positive for C. diff. EKG performed on admission showed atrial fibrillation with moderately rapid ventricular response and for this reason a cardiology consultation was requested. According to the patient and , patient has been in atrial fibrillation since his surgery. denies cardiac history. CTA of the abdomen was performed in the emergency room which revealed complete occlusion of the right femoral artery a long segment with reconstitution distally just proximal to the origin of the popliteal artery and patency of the remaining vasculature on the right lower extremity other than a short segment of approximately 50% stenosis of the right popliteal artery, as well as new aorta iliac bypass grafting without occlusion or evidence of any leak. This was reviewed by Dr. Ruiz who felt that this was normal postoperative vascular CTA. Chest x-ray did not reveal any acute cardiopulmonary process. Blood pressure 132/60 with a heart rate in the 70s, 96% on 2 L of oxygen. White blood cell count on admission 26.2, 14.0 this morning, hemoglobin 10.8, platelet count 526. Sodium 139, potassium 4.7, BUN 9, creatinine 0.5. C. diff positive. Troponin 0.012. BNP level 1680. At the time of my examination this morning, patient denies any chest discomfort or palpitations, no dizziness or lightheadedness. Past Medical History Past Medical History: Vascular Disorder Additional Past Medical History / Comment(s): BACK PAIN History of Any Multi-Drug Resistant Organisms: None Reported Additional Past Surgical History / Comment(s): THUMB SURGERY RIGHT HAND, femoral bypass may 2018 with left lower leg fasciotomy Past Anesthesia/Blood Transfusion Reactions: No Reported Reaction Past Psychological History: No Psychological Hx Reported Smoking Status: Former smoker Past Alcohol Use History: None Reported Past Drug Use History: None Reported, Prescription Drug Abuse - Past Family History Father Family Medical History: No Reported History Mother Family Medical History: Cancer Medications and Allergies Home Medications Medication Instructions Recorded Confirmed Type Atorvastatin [Lipitor] 40 mg PO HS 06/06/18 06/06/18 History Diltiazem Cd [Cardizem Cd] 180 mg PO DAILY 06/06/18 06/06/18 History Docusate [Colace] 100 mg PO BID 06/06/18 06/06/18 History Gabapentin 600 mg PO TID 06/06/18 06/06/18 History Hydrocodone/Acetaminophen [Crooks 1 tab PO TID PRN 06/06/18 06/06/18 History 10-325] Lisinopril [Zestril] 5 mg PO DAILY 06/06/18 06/06/18 History Multivitamins, Thera [Multivitamin 1 tab PO DAILY 06/06/18 06/06/18 History (formulary)] Nicotine 7Mg/24Hr Patch [Habitrol 1 patch TRANSDERM DAILY 06/06/18 06/06/18 History 7Mg/24Hr Patch] Pantoprazole Sodium [Protonix] 20 mg PO BID 06/06/18 06/06/18 History Rivaroxaban [Xarelto] 20 mg PO DAILY 06/06/18 06/06/18 History Sotalol [Betapace] 120 mg PO BID 06/06/18 06/06/18 History Tamsulosin HCl [Flomax] 0.4 mg PO DAILY 06/06/18 06/06/18 History Allergies Allergy/AdvReac Type Severity Reaction Status Date / Time No Known Allergies Allergy Verified 06/06/18 12:24 Physical Exam Vitals: Vital Signs Temp Pulse Resp BP Pulse Ox 06/08/18 07:39 18 06/08/18 06:40 96.9 F L 79 18 133/68 96 06/08/18 00:00 18 06/07/18 23:00 97.0 F L 88 18 120/70 94 L 06/07/18 14:52 97.4 F L 90 18 105/60 96 06/07/18 14:40 18 06/07/18 12:00 100 18 115/60 95 Intake and Output 06/07/18 06/08/18 06/08/18 22:59 06:59 14:59 Intake Total 180 Output Total 800 Balance 180 -800 Intake: IV 60 .9 60 Oral 120 Output: Urine 800 Other: Voiding Method Urinal # Bowel Movements 1 Weight 85.5 kg PHYSICAL EXAMINATION: GENERAL: 67-year-old gentleman in no acute distress at the time of my examination HEENT: Head is atraumatic, normocephalic. Pupils equal, round. Sclera anicteric. Conjunctiva are clear. Mucous membranes of the mouth are moist. Neck is supple. There is no elevated jugular venous pressure.] bruit is heard. HEART EXAMINATION: Heart S1 and S2 irregularly irregular CHEST EXAMINATION: Lungs reveal decreased air exchange with fine wheezing ABDOMEN: Soft, nontender. Bowel sounds are heard. No organomegaly noted. Mid lower abdominal incision well approximated without drainage. EXTREMITIES:1+ peripheral pulses with trace evidence of peripheral edema and no calf tenderness noted. Bilateral groin incisions well approximated without drainage, dressings in place. Right lower extremity medial and lateral fasciotomy sites well approximated with sutures and danial without drainage. NEUROLOGIC patient is awake, alert and oriented ?-3. . Results 06/08/18 05:57 06/08/18 05:57 Cardiac Enzymes 06/08/18 Range/Units 05:57 AST 31 (17-59) U/L CBC 06/08/18 Range/Units 05:57 WBC 14.0 H (3.8-10.6) k/uL RBC 3.09 L (4.30-5.90) m/uL Hgb 10.8 L (13.0-17.5) gm/dL Hct 33.9 L (39.0-53.0) % Plt Count 526 H (150-450) k/uL Comprehensive Metabolic Panel 06/08/18 Range/Units 05:57 Sodium 139 (137-145) mmol/L Potassium 4.7 (3.5-5.1) mmol/L Chloride 109 H (98-107) mmol/L Carbon Dioxide 25 (22-30) mmol/L BUN 19 (9-20) mg/dL Creatinine 0.50 L (0.66-1.25) mg/dL Glucose 153 H (74-99) mg/dL Calcium 8.8 (8.4-10.2) mg/dL AST 31 (17-59) U/L ALT 48 (21-72) U/L Alkaline Phosphatase 83 (38-126) U/L Total Protein 5.6 L (6.3-8.2) g/dL Albumin 2.8 L (3.5-5.0) g/dL Current Medications Generic Name Dose Route Start Last Admin Trade Name Freq PRN Reason Stop Dose Admin Hydrocodone Bitart/Acetaminophen 1 each 06/06/18 16:52 06/06/18 18:36 Crooks 10 PO 1 each TID PRN Administration Moderate Pain Atorvastatin Calcium 40 mg 06/06/18 21:00 06/07/18 22:04 Lipitor PO 40 mg HS JHOANA Administration Ventura Syrup 5 ml 06/07/18 13:00 06/08/18 06:30 Ventura Syrup PO 5 ml Q6HR JOHANA Administration Diltiazem HCl 180 mg 06/07/18 09:00 06/08/18 08:46 Cardizem Cd PO 180 mg DAILY JOHANA Administration Gabapentin 600 mg 06/06/18 22:00 06/08/18 08:46 Neurontin PO 600 mg TID JOHANA Administration Lisinopril 5 mg 06/07/18 09:00 06/08/18 08:46 Zestril PO 5 mg DAILY JOHANA Administration Methylprednisolone Sodium Succinate 40 mg 06/07/18 00:00 06/08/18 06:29 Solu-Medrol IV 40 mg Q6HR JOHANA Administration Metronidazole 500 mg 06/07/18 10:15 06/08/18 08:46 Flagyl PO 500 mg TID JOHANA Administration Naloxone HCl 0.2 mg 06/06/18 16:48 Narcan IV Q2M PRN Opioid Reversal Rivaroxaban 20 mg 06/07/18 09:00 06/08/18 08:46 Xarelto PO 20 mg DAILY JOHANA Administration Sotalol HCl 120 mg 06/06/18 21:00 06/08/18 08:46 Betapace PO 120 mg BID JOHANA Administration Tamsulosin HCl 0.4 mg 06/07/18 09:00 06/08/18 08:47 Flomax PO 0.4 mg DAILY JOHANA Administration Vancomycin HCl 250 mg 06/07/18 13:00 06/08/18 06:30 Vancomycin Oral Solution PO 250 mg Q6HR JOHANA Administration Intake and Output 06/07/18 06/08/18 06/08/18 22:59 06:59 14:59 Intake Total 180 Output Total 800 Balance 180 -800 Intake: IV 60 .9 60 Oral 120 Output: Urine 800 Other: Voiding Method Urinal # Bowel Movements 1 Weight 85.5 kg 06/08/18 05:57 06/08/18 05:57 EKG Interpretations (text) EKG shows atrial fibrillation with moderately rapid ventricular response. Assessment and Plan Plan: Assessment and plan #1 atrial fibrillation, patient apparently has had atrial fibrillation since his surgery. #2 status post aortoiliac femoral bypass #3 colitis with evidence of a positive C. diff #4 nicotine dependence #5 COPD #6 hyperlipidemia #7 hypertension #8 history of DVT Plan Echocardiogram with Doppler study was performed here which revealed a normal left ventricular systolic function. If the patient remains in atrial fibrillation may consider cardioversion down the road. We will continue anticoagulation with xarelto, continue sotalol, increase Cardizem to 240 daily. Further recommendations to follow. DNP note has been reviewed, I agree with a documented findings and plan of care. Patient was seen and examined.
--- NOTE | 2018-06-08 21:10 | PN ---
PROGRESS NOTE Patient is a 67-year-old pleasant white male who recently underwent fem-popliteal bypass surgery 2 weeks ago and was discharged to rehab and sent home. He was admitted to the hospital with left lower quadrant abdominal pain and diarrhea 5-6 days duration. C-diff was reported as positive. He was changed to oral vancomycin and oral Flagyl, is feeling better. Still has some abdominal pain. Diarrhea is improving. No fever, chills, night sweats. PHYSICAL EXAMINATION: Appears comfortable in no apparent distress. Vital signs are stable. Blood pressure is 111/56, pulse rate 74, temperature 98.4. HEENT examination unremarkable. Conjunctivae pink. Sclerae anicteric. Oral cavity, no lesions. NECK: No JVD or lymph node enlargement. Chest was clear to auscultation. HEART: Regular rate and rhythm. Abdomen is soft. Mild tenderness left lower quadrant area. Bowel sounds are positive. No organomegaly. EXTREMITIES: No pedal edema. SKIN: No rashes. NEUROLOGIC: Alert and oriented x3. No focal deficits. LABS: WBC 14.8, hemoglobin 10.8, platelets 526. Basic metabolic panel is within normal limits. IMPRESSION: 1. Acute C diff colitis on oral vancomycin and Flagyl. He is doing much better. Diarrhea is improving and so is abdominal pain. 2. Recent fem-popliteal bypass surgery 2 weeks ago. RECOMMENDATIONS: 1. The patient has significantly improved. Will advance diet as tolerated. 2. Continue with oral vancomycin and oral Flagyl. MMODL / IJN: [id number] /
[2018-06-08] MEDS: HYDROcodone/APAP 10-325MG 1 EACH TAB PO PRN (21:42)
[2018-06-08] MEDS: ATORVASTATIN 40 MG TAB PO SCH (21:43)
--- NOTE | 2018-06-08 21:43 | PN ---
PROGRESS NOTE SUBJECTIVE: 67-year-old white male being treated for colitis. Cardiology saw him also today. Recommended atrial fibrillation since surgery 2 weeks ago, status post aortofemoral bypass colitis with evidence of positive C diff, nicotine dependence and COPD. Remains on current treatment including echo, which showed normal systolic function. Outpatient cardioversion down the road. Continue on treatment for C diff as well as colitis. White count 14, hemoglobin 10.8. Blood cultures negative. Await consultation from Gastroenterology recommendations as well as Dr. Marroquin. Vancomycin being given by mouth and continue with Flagyl for positive C diff. Please see further orders. MMODL / IJN: [id number] /
--- NOTE | 2018-06-08 23:49 | PN ---
PROGRESS NOTE DATE OF SERVICE: 06/08/2018. REASON FOR FOLLOW UP: Clostridium difficile colitis. INTERVAL HISTORY: The patient is currently afebrile. He has been breathing comfortably. Did have one loose stool this morning. Abdominal pain has improved. No nausea, no vomiting. Denies any pain to the right leg incision. EXAMINATION: Blood pressure 111/56 with a pulse of 74, temperature 98.4. He is 94% on room air. GENERAL DESCRIPTION: He is an elderly male lying in bed in no distress. RESPIRATORY SYSTEM: Unlabored breathing. Clear to auscultation anteriorly. HEART: Heart S1, S2. Regular rate and rhythm. ABDOMEN: Soft, no tenderness. EXTREMITIES: Leg wound is currently dressed. No obvious drainage on the dressing. LABS: Hemoglobin is 10.8, white count 14,000, BUN of 19, creatinine 0.50. DIAGNOSTIC IMPRESSION AND PLAN: Patient with acute clostridium difficile colitis. The patient will continue with vancomycin while watching his kidney function closely. As the diarrhea has improved, no need to . Symptomatic relief. Continue supportive care. MMODL / IJN: [id number] /
[2018-06-09] MEDS: CHERRY FLAVOR 60 ML BOTTLE PO SCH ×4 (05:39→23:49)
[2018-06-09] MEDS: HYDROcodone/APAP 10-325MG 1 EACH TAB PO PRN ×3 (05:39→21:29)
[2018-06-09] MEDS: methylPREDNISolone SOD SUCCI 40 MG/ML 1 ML VIAL IV SCH ×4 (05:39→23:49)
[2018-06-09] MEDS: VANCOMYCIN ORAL SOLUTION 250 MG/5 ML BOTTLE PO SCH ×4 (05:39→23:49)
[2018-06-09 07:19] LABS: ALT 56 U/L (21-72); AST 26 U/L (17-59); Albumin 2.8 g/dL (3.5-5.0); Alkaline Phosphatase 78 U/L (38-126); Anion Gap 7 mmol/L; Blood Urea Nitrogen 25 mg/dL (9-20); Calcium 8.7 mg/dL (8.4-10.2); Carbon Dioxide 25 mmol/L (22-30); Chloride 107 mmol/L (98-107); Glucose 141 mg/dL (74-99); Potassium 4.4 mmol/L (3.5-5.1); Sodium 139 mmol/L (137-145); Total Bilirubin 0.2 mg/dL (0.2-1.3); Total Protein 5.4 g/dL (6.3-8.2)
[2018-06-09 07:20] LABS: Basophils % (A) 0 %; Eosinophils % (A) 0 %; HCT 31.8 % (39.0-53.0); HGB 10.4 gm/dL (13.0-17.5); Hypochromasia Slight; Lymphocytes # (A) 0.9 k/uL (1.0-4.8); Lymphocytes % (A) 6 %; MCH 35.1 pg (25.0-35.0); MCHC 32.7 g/dL (31.0-37.0); MCV 107.5 fL (80.0-100.0); Macrocytosis Moderate; Mean Platelet Volume 6.7; Monocytes # (A) 0.4 k/uL (0-1.0); Monocytes % (A) 3 %; Neutrophils # (A) 12.9 k/uL (1.3-7.7); Neutrophils % (A) 90 %; Platelet Count 507 k/uL (150-450); RBC 2.96 m/uL (4.30-5.90); RDW 14.4 % (11.5-15.5); WBC 14.3 k/uL (3.8-10.6)
[2018-06-09] MEDS: LISINOPRIL 5 MG TAB PO SCH (09:06)
[2018-06-09] MEDS: RIVAROXABAN 20 MG TAB PO SCH (09:06)
[2018-06-09] MEDS: DILTIAZEM CD 240 MG CAP.ER.24H PO SCH (09:06)
[2018-06-09] MEDS: metroNIDAZOLE 500 MG TAB PO SCH ×3 (09:06→21:29)
[2018-06-09] MEDS: GABAPENTIN 300 MG CAP PO SCH ×3 (09:06→21:29)
[2018-06-09] MEDS: TAMSULOSIN 0.4 MG CAP.ER.24H PO SCH (09:06)
--- NOTE | 2018-06-09 10:20 | CDI ---
Last Revision, October 2017 Documentation Clarification Form Date: 06/09/2018 10:11:00 AM From: Nara VerduzcoXIOMARA, CCDS Admit Date: 06/06/2018 4:52:00 PM Patient Name: Kevin Coley Visit Number: [id number] Discharge Date: ATTENTION: The Clinical Documentation Specialists (CDI) and [facility] Coding Staff appreciate your assistance in clarifying documentation. Please respond to the clarification below the line at the bottom and electronically sign. The CDI & [facility] Coding staff will review the response and follow-up if needed. Please note: Queries are made part of the Legal Health Record. If you have any questions, please contact the author of this message via ITS. Joseph Parsons MD Atrial fibrillation is documented in the Cardiology Consult: "Atrial fibrillation, patient apparently has had atrial fibrillation since his surgery. " History/Risk Factors: PVD, Hyperlipidemia, Hypertension, DVT, Smoker. Clinical Indicators: Presented from home with LLQ abdominal pain, diagnosed with C Diff Colitis. Cardiology consulted regarding Atrial fibrillation per EKG. EKG/telemetry: R 115 A Fib w/RVR Treatment: Xarelto, Sotalol, Cardizem increased. In your professional opinion, can you please clarify the type of atrial fibrillation, if known? Chronic/Permanent Paroxysmal Persistent Other, please specify Unable to determine Please continue to document in your progress notes and discharge summary in order to capture severity of illness and risk of mortality. Include clinical findings that support your diagnosis. MTDD
--- NOTE | 2018-06-09 10:42 | P.PN ---
Subjective Mr. Coley is seen and examined sitting up in bed in no acute distress. Past medical history significant for hypertension, dyslipidemia, DVT on skilled nursing anticoagulation with xarelto, chronic nicotine dependence, PAD, PVD and recent aortoiliac bypass. He states he went in to atrial fibrillation after his procedure at [facility] 3 weeks ago. He is currently being treated for c. diff. His heart rate was faster on admission and his cardizem was increased yesterday. Blood pressure 111/53 heart rate 86 afebrile maintaining oxygen saturation on room air. Laboratory data reviewed, WBC 14.3, hemoglobin 10.4, platelets 507, sodium 139, potassium 4.4, creatinine 0.6. He denies symptoms of chest pain, shortness of breath, dizziness, palpitations, nausea, vomiting or diaphoresis. Objective - Vital Signs Vital signs: Vital Signs Temp 97.7 F 06/09/18 09:07 Pulse 86 06/09/18 09:07 Resp 16 06/09/18 09:07 BP 111/53 06/09/18 09:07 Pulse Ox 95 06/09/18 09:07 Intake & Output 06/08/18 06/09/18 06/09/18 18:59 06:59 18:59 Intake Total 160 880 Balance 160 880 Intake: IV 160 .9 160 Oral 880 Other: Voiding Method Urinal Urinal Urinal # Bowel Movements 1 - Exam GENERAL: Well-appearing, well-nourished and in no acute distress. NECK: Supple without JVD or thyromegaly. LUNGS: Breath sounds clear to auscultation bilaterally. Respiration equal and unlabored. No wheezes, rales or rhonchi. HEART: Irregular rate and rhythm without murmurs, rubs or gallops. S1 and S2 heard. EXTREMITIES: Normal range of motion, trace nonpitting bilateral lower extremity edema. Dressing in place to right lower extremity with sutures in place, well approximated with no bleeding or drainage noted. No clubbing or cyanosis. Peripheral pulses intact. - Labs CBC & Chem 7: 06/09/18 06:54 06/09/18 06:54 Labs: Abnormal Lab Results - Last 24 Hours (Table) 06/09/18 06/09/18 Range/Units 06:54 06:54 WBC 14.3 H (3.8-10.6) k/uL RBC 2.96 L (4.30-5.90) m/uL Hgb 10.4 L (13.0-17.5) gm/dL Hct 31.8 L (39.0-53.0) % MCV 107.5 H (80.0-100.0) fL MCH 35.1 H (25.0-35.0) pg Plt Count 507 H (150-450) k/uL Neutrophils # 12.9 H (1.3-7.7) k/uL Lymphocytes # 0.9 L (1.0-4.8) k/uL BUN 25 H (9-20) mg/dL Creatinine 0.60 L (0.66-1.25) mg/dL Glucose 141 H (74-99) mg/dL Total Protein 5.4 L (6.3-8.2) g/dL Albumin 2.8 L (3.5-5.0) g/dL Microbiology - Last 24 Hours (Table) 06/06/18 12:40 Blood Culture - Preliminary Blood No Growth after 48 hours Assessment and Plan Assessment: ASSESSMENT Atrial fibrillation, new onset after recent surgery 3 weeks ago at [facility], on head of insight anticoagulation. Rapid ventricular response on admission, controlled at this time. s/p aorto-iliac femoral bypass Colitis, positive for c. diff Hypertension Dyslipidemia COPD History of DVT Chronic nicotine dependence PLAN Check TSH. Continue current medical regimen. Follow up with Dr. Sweet in 2-3 weeks. Nurse Practitioner note has been reviewed, I agree with a documented findings and plan of care. Patient was seen and examined.
[2018-06-09 11:18] LABS: T4, Free (Free Thyroxine) 1.54 ng/dL (0.78-2.19)
[2018-06-09] MEDS: CHOLESTYRAMINE (WITH SUGAR) 4 GM PACKET PO SCH (17:20)
[2018-06-09] MEDS: ATORVASTATIN 40 MG TAB PO SCH (21:29)
--- NOTE | 2018-06-09 22:01 | PN ---
PROGRESS NOTE DATE OF SURGERY: 06/09/2018 The patient is a 64-year-old pleasant man admitted to the hospital with C. dif colitis. He has been on oral Vancomycin and oral Flagyl #3. He still complains of diarrhea and abdominal pain. No fever, chills, or night sweats. PHYSICAL EXAMINATION: He appears comfortable, in no apparent distress. Vital signs stable. Blood pressure is 132/86, pulse rate 85 per minute and afebrile. HEENT examination unremarkable. Conjunctivae pink. Sclerae anicteric. Oral cavity no lesions. Neck no JVD or lymph node enlargement. The chest was clear to auscultation. Heart regular rate and rhythm. Abdomen soft. Mild tenderness in the left lower quadrant area. Bowel sounds are positive. No organomegaly. Extremities no pedal edema. Skin no rashes. platelets are normal. Basic metabolic panel is within normal limits. BUN 25, creatinine 0.60. IMPRESSION: Acute C diff colitis on oral vancomycin and Flagyl day #3 still has persistent diarrhea. RECOMMENDATIONS: 1. Agree with starting him on Questran 1 packet twice daily. 2. Continue with oral Vancomycin. 3. Diet as tolerated. 4. . Thank you for this consultation. MMODL / IJN: [id number] /
--- NOTE | 2018-06-09 22:26 | PN ---
PROGRESS NOTE SUBJECTIVE: A 67-year-old white male with colitis, dehydration, C. diff positive, status post fem- pop bypass. Remains on oral vancomycin, IV Flagyl, still remains with diarrhea. CARDIOVASCULAR: S1-S2. GI: Soft, increased bowel sounds. HEMATOLOGY: Negative Low's. ASSESSMENT: 1. Colitis. 2. Dehydration. 3. Status post fem pop bypass. Continue with oral vancomycin, IV vancomycin, check for electrolyte abnormalities and anemia. Please see further orders. MMODL / IJN: [id number] /
--- NOTE | 2018-06-09 23:47 | PN ---
PROGRESS NOTE DATE OF SERVICE: 06/09/2018 REASON FOR FOLLOWUP: C. diff colitis. INTERVAL HISTORY: The patient is currently afebrile. He seems to be breathing comfortably. Has loose stools with one episode this morning, but the frequency is slightly decreased. Denies having any chest pain. No shortness of breath or cough. No pain into the right leg incision site. On examination blood pressure is 115/59, pulse 86, temp 97.6. She is 92% on room air. General description is an elderly male lying in bed in no distress. RESPIRATORY SYSTEM: Clear to auscultation anteriorly. HEART: S1, S2. Regular rate and rhythm. ABDOMEN: Soft, nontender. LABS: White count is 14.3, hemoglobin is 10.4, BUN of 25, creatinine 0.60. DIAGNOSTIC IMPRESSION AND PLAN: The patient with C. diff colitis, currently on oral vancomycin. We will add Questran for symptomatic relief and revaluate the patient tomorrow. Continues supportive care. MMODL / IJN: [id number] /
[2018-06-10] MEDS: methylPREDNISolone SOD SUCCI 40 MG/ML 1 ML VIAL IV SCH ×4 (06:08→23:33)
[2018-06-10] MEDS: VANCOMYCIN ORAL SOLUTION 250 MG/5 ML BOTTLE PO SCH ×4 (06:08→23:33)
[2018-06-10] MEDS: CHERRY FLAVOR 60 ML BOTTLE PO SCH ×4 (06:08→23:32)
[2018-06-10] MEDS: HYDROcodone/APAP 10-325MG 1 EACH TAB PO PRN ×2 (06:10→18:02)
[2018-06-10] MEDS: CHOLESTYRAMINE (WITH SUGAR) 4 GM PACKET PO SCH ×2 (09:41→18:03)
[2018-06-10] MEDS: GABAPENTIN 300 MG CAP PO SCH ×3 (09:41→20:50)
[2018-06-10] MEDS: RIVAROXABAN 20 MG TAB PO SCH (09:41)
[2018-06-10] MEDS: DILTIAZEM CD 240 MG CAP.ER.24H PO SCH (09:41)
[2018-06-10] MEDS: TAMSULOSIN 0.4 MG CAP.ER.24H PO SCH (09:41)
[2018-06-10] MEDS: LISINOPRIL 5 MG TAB PO SCH (09:41)
[2018-06-10] MEDS: metroNIDAZOLE 500 MG TAB PO SCH ×3 (09:41→20:50)
[2018-06-10] MEDS: ATORVASTATIN 40 MG TAB PO SCH (20:49)
[2018-06-10 21:11] VITALS: RESP 18
--- NOTE | 2018-06-11 00:27 | PN ---
PROGRESS NOTE DATE OF SERVICE: 06/10/2018. SUBJECTIVE: A 67-year-old with C diff colitis, dehydration, acute kidney injury, acute abdominal pain. OBJECTIVE: Vital signs stable, afebrile. CARDIOVASCULAR: S1, S2. LUNGS: Clear. GI: Increased bowel sounds. ASSESSMENT: 1. Clostridium difficile colitis. 2. Dehydration. 3. Acute kidney injury. 4. Multiple medical conditions. PLAN: 1. Continue on oral vancomycin. 2. Possible discharge home in the morning. MMODL / IJN: [id number] /
[2018-06-11] MEDS: HYDROcodone/APAP 10-325MG 1 EACH TAB PO PRN ×2 (02:29→11:33)
[2018-06-11] MEDS: CHERRY FLAVOR 60 ML BOTTLE PO SCH ×3 (05:00→17:53)
[2018-06-11] MEDS: VANCOMYCIN ORAL SOLUTION 250 MG/5 ML BOTTLE PO SCH ×3 (05:00→17:53)
[2018-06-11] MEDS: methylPREDNISolone SOD SUCCI 40 MG/ML 1 ML VIAL IV SCH ×3 (05:44→17:50)
[2018-06-11 06:01] VITALS: BP 134/83; PULSE 91; TEMP 97.7
--- NOTE | 2018-06-11 06:37 | PN ---
PROGRESS NOTE DATE OF SERVICE: 06/10/2018. REASON FOR FOLLOWUP: C difficile colitis. INTERVAL HISTORY: The patient is afebrile. He has been breathing comfortably. The patient's diarrhea has slightly decreased in frequency. Still mentioned having some loose stool. No blood or mucus in it. No nausea or vomiting. Denies any pain to the right leg incision sites. PHYSICAL EXAMINATION: On examination, blood pressure 133/68 with a pulse of 76, temperature of 97.8. He is 95% on room air. General description is an elderly male lying in bed in no distress. RESPIRATORY SYSTEM: Unlabored breathing, clear to auscultation anteriorly. HEART: S1, S2. Regular rate and rhythm. ABDOMEN: Soft, no tenderness. EXTREMITIES: No edema of the feet. LABS: No new labs have been obtained today. DIAGNOSTIC IMPRESSION AND PLAN: Patient with Clostridium difficile colitis for which the patient will continue on oral vancomycin and Questran to make sure Questran vancomycin discussed with Pharmacy and if he continues to improve to finish therapy with oral vancomycin along with probiotic intake. Continue supportive care. MMODL / IJN: [id number] /
[2018-06-11] MEDS: GABAPENTIN 300 MG CAP PO SCH ×2 (09:05→15:34)
[2018-06-11] MEDS: RIVAROXABAN 20 MG TAB PO SCH (09:05)
[2018-06-11] MEDS: LISINOPRIL 5 MG TAB PO SCH (09:05)
[2018-06-11] MEDS: DILTIAZEM CD 240 MG CAP.ER.24H PO SCH (09:05)
[2018-06-11] MEDS: metroNIDAZOLE 500 MG TAB PO SCH ×2 (09:05→15:34)
[2018-06-11] MEDS: TAMSULOSIN 0.4 MG CAP.ER.24H PO SCH (09:06)
[2018-06-11] MEDS: CHOLESTYRAMINE (WITH SUGAR) 4 GM PACKET PO SCH ×2 (09:06→17:55)
--- NOTE | 2018-06-11 09:59 | P.PN ---
Subjective Progress Note Date: 06/11/18 Principal diagnosis: Clostridium difficile colitis possible ischemic Denies abdominal pain. Diarrhea improved. Tolerating regular diet. Anticipating discharge. Objective - Vital Signs Vital signs: Vital Signs Temp 97.7 F 06/11/18 06:00 Pulse 91 06/11/18 06:00 Resp 18 06/11/18 06:00 BP 134/83 06/11/18 06:00 Pulse Ox 94 L 06/11/18 06:00 Intake & Output 06/10/18 06/11/18 06/11/18 18:59 06:59 18:59 Intake Total 160 Balance 160 Intake: IV 160 ns@20 160 Other: Voiding Method Urinal Urinal # Voids 2 # Bowel Movements 1 - Exam General appearance: The patient is alert, oriented, in no acute distress. HET: Head is normocephalic and atraumatic. Pupils are equal and reactive. Oropharynx is clear without lesions. Neck: Supple without lymphadenopathy. Trachea midline. Heart: S1 S2. Lungs: No crackles or wheezes are heard. Abdomen: Soft, nontender, nondistended with bowel sounds. No peritoneal signs. No palpable organomegaly or masses. Extremities: Normal skin color and turgor. No cyanosis, rash, ulceration, clubbing, or edema. Radial and pedal pulses are 2/4 bilaterally. Neurological: No focal deficits. Strength and sensation are grossly intact. - Labs CBC & Chem 7: 06/09/18 06:54 06/09/18 06:54 Labs: Microbiology - Last 24 Hours (Table) 06/06/18 12:40 Blood Culture - Preliminary Blood No Growth after 96 hours Assessment and Plan (1) Clostridium difficile colitis Narrative/Plan: Possible superimposed ischemic colitis with clinical improvement Current Visit: Yes Status: Acute Code(s): A04.72 - ENTEROCOLITIS D/T CLOSTRIDIUM DIFFICILE, NOT SPCF RECUR SNOMED Code(s): 247238627 Plan: 1. Discharge per medicine and heritage consultant staff. Antibiotics per ID recommendations. Return office in 3-4 weeks for reevaluation. Last colonoscopy to patient's memory possibly 3 years ago does not remember findings or where it was performed. Assessment and plan a care discussed with Dr. Cabezas
--- NOTE | 2018-06-11 14:22 | PN ---
PROGRESS NOTE DATE OF SERVICE: 06/11/2018 REASON FOR FOLLOWUP: C. difficile colitis. INTERVAL HISTORY: The patient is currently afebrile. He is breathing comfortably. Denies significant chest pain. No shortness of breath or cough. No abdominal pain. No nausea, vomiting and the diarrhea has slowed down slightly forming up. No blood in stools. Denies any pain to the groin or the leg incision area which is currently healed. PHYSICAL EXAMINATION: Blood pressure 134/83 with a pulse of 91, temperature 97.7, he is 94% on room air. General description is an elderly male, lying in bed in no distress. RESPIRATORY SYSTEM: Unlabored breathing, clear to auscultation anteriorly. HEART: S1, S2. Regular rate and rhythm. ABDOMEN: Soft, no tenderness. LABS: No new labs have been obtained today. DIAGNOSTIC IMPRESSION AND PLAN: Patient admitted to the hospital with significant diarrhea. Stool for Clostridium difficile is positive. Patient is responding to the oral vancomycin. Will finish therapy with oral vancomycin 250 p.o. q.6 hours 10 more days with close outpatient followup along with Questran for symptomatic relief. MMODL / IJN: [id number] /
--- NOTE | 2018-06-13 07:39 | CDI ---
Last Revision, October 2017 Documentation Clarification Form Date: 06/13/18 From: Loida Moy Ade Smith, Wine And Spirits Clerk Hours-8:30 am & 5 pm M-Herlinda Admit Date: 06/06/2018 4:52:00 PM Patient Name: Kevin Coley Visit Number: [id number] Discharge Date: 06/11/18 ATTENTION: The Clinical Documentation Specialists (CDI) and [facility] Coding Staff appreciate your assistance in clarifying documentation. Please respond to the clarification below the line at the bottom and electronically sign. The CDI & [facility] Coding staff will review the response and follow-up if needed. Please note: Queries are made part of the Legal Health Record. If you have any questions, please contact the author of this message via ITS. Chris Lara MD Acute kidney injury documented in your 06/10 progress note. History/Risk Factors: acute enterocolitis due to C Diff Current BUN: 23, 17, 19, 25 Current CR: .70, .60, .50, .60 Current GFR: >90 X 4 Treatment: no addiltional orders In order to capture the severity of condition, please clarify if the condition signifies: KIDGO defines PUSHPA as the occurrence of any 1 of the following: Increase in serum creatinine level by 0.3 mg/dl, measured prospectively by at least 2 separate levels obtained within 48 hrs, or Increase in serum creatinine level to 1.5 times baseline or greater, which is known or presumed to have occurred within the prior 7 days, or A urine volume of less than 0.5 ml/kg/h for 6 hours or longer. In order to capture the severity of condition, please clarify if the condition signifies: Acute kidney injury ruled in Acute kidney injury ruled out Other, please specify Unable to determine Please continue to document in your progress notes and discharge summary in order to capture severity of illness and risk of mortality. Include clinical findings that support your diagnosis. MTDD
--- NOTE | 2018-06-16 08:10 | CDI ---
Last Revision, October 2017 Documentation Clarification Form Date: 06/09/2018 10:11:00 AM From: Nara VerduzcoXIOMARA, CCDS Admit Date: 06/06/2018 4:52:00 PM Patient Name: Kevin Coley Visit Number: [id number] Discharge Date: 06/11/2018 ATTENTION: The Clinical Documentation Specialists (CDI) and [facility] Coding Staff appreciate your assistance in clarifying documentation. Please respond to the clarification below the line at the bottom and electronically sign. The CDI & [facility] Coding staff will review the response and follow-up if needed. Please note: Queries are made part of the Legal Health Record. If you have any questions, please contact the author of this message via ITS. Joseph Parsons MD Atrial fibrillation is documented in the Cardiology Consult: "Atrial fibrillation, patient apparently has had atrial fibrillation since his surgery. " History/Risk Factors: PVD, Hyperlipidemia, Hypertension, DVT, Smoker. Clinical Indicators: Presented from home with LLQ abdominal pain, diagnosed with C Diff Colitis. Cardiology consulted regarding Atrial fibrillation per EKG. EKG/telemetry: R 115 A Fib w/RVR Treatment: Xarelto, Sotalol, Cardizem increased. In your professional opinion, can you please clarify the type of atrial fibrillation, if known? Chronic/Permanent Paroxysmal Persistent Other, please specify Unable to determine Please continue to document in your progress notes and discharge summary in order to capture severity of illness and risk of mortality. Include clinical findings that support your diagnosis. MTDD
--- NOTE | 2018-06-17 07:31 | CDI ---
Last Revision, October 2017 Documentation Clarification Form Date: 06/09/2018 10:11:00 AM Resubmitted 06/17/2018 From: Nara Verduzco CCS, CCDS Admit Date: 06/06/2018 4:52:00 PM Patient Name: Kevin Coley Visit Number: [id number] Discharge Date: 06/11/2018 ATTENTION: The Clinical Documentation Specialists (CDI) and [facility] Coding Staff appreciate your assistance in clarifying documentation. Please respond to the clarification below the line at the bottom and electronically sign. The CDI & [facility] Coding staff will review the response and follow-up if needed. Please note: Queries are made part of the Legal Health Record. If you have any questions, please contact the author of this message via ITS. Dr. Sweet, Joseph Booker MD Atrial fibrillation is documented in the Cardiology Consult: "Atrial fibrillation, patient apparently has had atrial fibrillation since his surgery. " History/Risk Factors: PVD, Hyperlipidemia, Hypertension, DVT, Smoker. Clinical Indicators: Presented from home with LLQ abdominal pain, diagnosed with C Diff Colitis. Cardiology consulted regarding Atrial fibrillation per EKG. EKG/telemetry: R 115 A Fib w/RVR Treatment: Xarelto, Sotalol, Cardizem increased. In your professional opinion, can you please clarify the type of atrial fibrillation, if known? Chronic/Permanent Paroxysmal Persistent Other, please specify Unable to determine Please continue to document in your progress notes and discharge summary in order to capture severity of illness and risk of mortality. Include clinical findings that support your diagnosis. MTDD
--- NOTE | 2018-06-23 09:19 | P.PN ---
Progress Note - Text Progress Note Date: 06/23/18 This addendum to the cardiology consultation dictated, patient has chronic persistent atrial fibrillation DNP note has been reviewed, I agree with a documented findings and plan of care. Patient was seen and examined.
--- NOTE | 2018-06-23 15:54 | CDI ---
Last Revision, October 2017 Documentation Clarification Form Date: 06/23/2018 From: Loida Moy Ade Smith, Digital Marketing Project Manager Hours-8:30 am & 5 pm M-Herlinda Admit Date: 06/06/2018 Patient Name: Kevin Coley Visit Number: [id number] Discharge Date: 06/11/18 ATTENTION: The Clinical Documentation Specialists (CDI) and [facility] Coding Staff appreciate your assistance in clarifying documentation. Please respond to the clarification below the line at the bottom and electronically sign. The CDI & [facility] Coding staff will review the response and follow-up if needed. Please note: Queries are made part of the Legal Health Record. If you have any questions, please contact the author of this message via ITS. Dr. Amanda, Acute kidney injury documented in your 06/10 progress note. Current BUN: 23, 17, 19, 25 Current CR: .70, .60, .50, .60 Current GFR: >90 X 4 Treatment: no additional orders related to tx of PUSHPA In order to capture the severity of condition, please clarify if the condition signifies: KIDGO defines PUSHPA as the occurrence of any 1 of the following: Increase in serum creatinine level by 0.3 mg/dl, measured prospectively by at least 2 separate levels obtained within 48 hrs, or Increase in serum creatinine level to 1.5 times baseline or greater, which is known or presumed to have occurred within the prior 7 days, or A urine volume of less than 0.5 ml/kg/h for 6 hours or longer. In order to capture the severity of condition, please clarify if the condition signifies: Acute kidney injury ruled in Acute kidney injury ruled out Other, please specify Unable to determine MTDD
--- NOTE | 2018-06-28 07:12 | DS ---
DISCHARGE SUMMARY ADDENDUM: DISCHARGE SUMMARY: Acute kidney injury ruled out. MMODL / IJN: [id number] /
== END 2018-06-11 18:30 | disposition home or self-care (01) | DRG 371 ==
LOC: SUPCPDRO 11:44 → EC 11:44 → 6SEL 16:52 → 5MS5E 06-08 13:00
PROVIDERS: ADMIT Family Medicine; ATTEND Family Medicine
DX: A04.72 Enterocolitis due to Clostridium difficile, not specified as recurrent (principal); K55.039 Acute (reversible) ischemia of large intestine, extent unspecified; E44.1 Mild protein-calorie malnutrition; I70.92 Chronic total occlusion of artery of the extremities; I48.2 Chronic atrial fibrillation; J44.9 Chronic obstructive pulmonary disease, unspecified; E86.0 Dehydration; I10 Essential (primary) hypertension; E78.5 Hyperlipidemia, unspecified; E78.00 Pure hypercholesterolemia, unspecified; M54.9 Dorsalgia, unspecified; G89.29 Other chronic pain; I70.201 Unspecified atherosclerosis of native arteries of extremities, right leg; Z68.24 Body mass index [BMI] 24.0-24.9, adult; Z79.01 Long term (current) use of anticoagulants; Z79.899 Other long term (current) drug therapy; Z87.891 Personal history of nicotine dependence; Z95.828 Presence of other vascular implants and grafts; Z86.718 Personal history of other venous thrombosis and embolism; Z80.9 Family history of malignant neoplasm, unspecified
CPT/HCPCS: 36415; 71046; 75635; 80053; 81003; 82550; 82553; 83605; 83735; 83880; 84439; 84443; 84484; 85025; 85610; 85730; 87040; 87324; 93005; 93306; 94640; 96365; 96366; 96375; 99285

== ENCOUNTER → 2018-12-03 | Day surgery (SDC) | payer MEDICARE ==
[2018-12-01 14:34] VITALS: BMI 29.5
[~2018-12-03] MED LIST: ASPIRIN 325 MG TAB PO STA; HYDROcodone/APAP 10-325MG 1 EACH TAB PO PRN; HYDROmorphone (PF) 1 MG/ML ONE; IOPAMIDOL-250 100ML BTL INTRAARTER ONE; KETAMINE 10 MG/ML 20 ML VIAL ONE; LIDOCAINE 1% (PF) 10MG/ML VIAL SQ ONE; MIDAZOLAM 2 MG/2 ML VIAL ONE; SODIUM CHLORIDE 0.9% 1,000 ML in EMPTY BAG 1 BAG IV ONE; fentaNYL (PF) 50 MCG/ML 2 ML AMP ONE
[2018-12-03 08:26] VITALS: RESP 18
[2018-12-03 08:33] VITALS: TEMP 97.7
[2018-12-03 08:33] LABS: Basophils # (A) 0.1 k/uL (0-0.2); Basophils % (A) 1 %; Eosinophils # (A) 0.5 k/uL (0-0.7); Eosinophils % (A) 6 %; HCT 41.9 % (39.0-53.0); HGB 13.9 gm/dL (13.0-17.5); Lymphocytes # (A) 2.4 k/uL (1.0-4.8); Lymphocytes % (A) 27 %; MCH 33.7 pg (25.0-35.0); MCHC 33.1 g/dL (31.0-37.0); MCV 101.9 fL (80.0-100.0); Macrocytosis Slight; Mean Platelet Volume 6.4; Monocytes # (A) 0.6 k/uL (0-1.0); Monocytes % (A) 7 %; Neutrophils # (A) 5.2 k/uL (1.3-7.7); Neutrophils % (A) 57 %; Platelet Count 358 k/uL (150-450); RBC 4.11 m/uL (4.30-5.90); RDW 14.7 % (11.5-15.5); WBC 9.1 k/uL (3.8-10.6)
[2018-12-03 08:45] LABS: Anion Gap 8 mmol/L; Blood Urea Nitrogen 17 mg/dL (9-20); Calcium 9.8 mg/dL (8.4-10.2); Carbon Dioxide 25 mmol/L (22-30); Chloride 108 mmol/L (98-107); Glucose 98 mg/dL (74-99); Potassium 5.1 mmol/L (3.5-5.1); Sodium 141 mmol/L (137-145)
[2018-12-03 08:46] LABS: INR 1.3 (<1.2); Prothrombin Time 13.2 sec (9.0-12.0)
--- NOTE | 2018-12-03 12:26 | P.OP ---
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 Procedure(s) Performed: #1 ultrasound-guided cannulation left femoral artery. #2 right femoral angiogram. #3 atherectomy right superficial femoral artery. #4 balloon dilation right superficial femoral artery with 5 mm diameter drug eluding balloon. Anesthesia: MAC Surgeon: Bhanu Chan Estimated Blood Loss (ml): 15 Pathology: none sent Condition: stable Disposition: same day Indications for Procedure: Lifestyle limiting right calf claudication and paresthesias of the right foot secondary to right femoral occlusion Operative Findings: 12 cm total occlusion right superficial femoral artery with good three-vessel runoff Description of Procedure: Patient was brought to the special procedure suite. The right lower extremity sterilely prepped and draped in usual manner. Patient received intravenously administered antibiotics in the perioperative phase for prophylaxis. Patient received attended anesthesia delivered by the department anesthesiology. Utilizing ultrasound the proximal portion of the superficial femoral artery was identified. 1% Xylocaine was utilized for local anesthesia of the tissues overlying the femoral artery. Through this anesthetized area a micropuncture needle was lysed and her in a antegrade manner the femoral artery with the aid of ultrasound guidance. Once cannulated a Softip guidewire was advanced down the micropuncture sheath and dilator. The guidewire and dilator were withdrawn and a 0.035 inch J-tipped guidewire was advanced through the micropuncture sheath into the femoral artery. Micropuncture sheath was then exchanged for 6- [place]itanian sheath. The patient was systemically heparinized with 5000 units of heparin. A right femoral angiogram was performed. A lesion approximating 12 cm in length of total occlusion was identified. Utilizing a quick cross catheter and guidewire the lesion was crossed and the catheter was advanced into the popliteal artery. The guidewire was withdrawn. Blood was easily aspirated through the catheter and angiogram was performed to confirm intravascular position of the catheter. Once catheter position was confirmed a 0.014 inch wire was advanced through the catheter into the anterior tibial artery. A Silver Hawk 6-[place]auritanian system was selected and under fluoroscopic guidance was advanced over the guidewire and 2 separate passes of the Silver Hawk device was made. Angiogram was then performed. This demonstrated a good result. Subsequently a 5 mm x 150 mm drug-eluting balloon was selected and utilized to balloon dilate the previously totally occluded segment. The balloon was then deflated and repeat angiogram was performed. This demonstrated a very good result with no identifiable residual stenosis and good flow into the tibial vascular tree. With the above findings noted the guidewire and sheath were withdrawn and pressure was held at the puncture site until all evidence of bleeding ceased. The patient did receive 20 mg of protamine to help reverse the heparin effect. The patient tolerated the procedure well and was taken to the postprocedure area in satisfactory and stable condition. A palpable dorsalis pedis pulse was noted at the completion of the procedure.
[2018-12-03 18:27] VITALS: BP 122/69; PULSE 72
--- NOTE | 2018-12-04 15:10 | IR ---
EXAMINATION TYPE: IR fluoroscopy >1hr DATE OF EXAM: 12/03/2018 FLUOROSCOPY Fluoroscopy time of 8.5 minutes was used during right groin sheath placement. Arterial dilatation was performed. 220 image/s document/s the procedure.
== END ==
LOC: CATHCVL 07:44
PROVIDERS: ATTEND Surgery
DX: I70.211 Atherosclerosis of native arteries of extremities with intermittent claudication, right leg (principal); I70.92 Chronic total occlusion of artery of the extremities; Z87.891 Personal history of nicotine dependence; Z95.828 Presence of other vascular implants and grafts; I10 Essential (primary) hypertension; I25.10 Atherosclerotic heart disease of native coronary artery without angina pectoris; E78.5 Hyperlipidemia, unspecified; R05 Cough; K21.9 Gastro-esophageal reflux disease without esophagitis; Z79.02 Long term (current) use of antithrombotics/antiplatelets; Z79.899 Other long term (current) drug therapy; Z79.01 Long term (current) use of anticoagulants
CPT/HCPCS: 37225; 80048; 85025; 85610; C1769 ×6; C1894; C1887; C1714; C2623; J2250; J3010; J1170; J2001; J1644; Q9966

== ENCOUNTER 2024-01-15 09:34 | Day surgery (SDC) | payer MEDICARE ==
[2024-01-15] MEDS ORDERED: LIDOCAINE 1% (10MG/ML) FOR IV START INTRADERMA PRN (10:08)
[2024-01-15] MEDS: LACTATED RINGERS 1,000 ML IV SCH (10:35)
[2024-01-15 10:36] VITALS: TEMP 96.8
[2024-01-15] MEDS ORDERED: LIDOCAINE 1% INJ 10MG/ML (20 ML MDV) ONE (11:03)
[2024-01-15] MEDS ORDERED: PROPOFOL 10 MG/ML 20 ML VIAL IV ONE (11:03)
--- NOTE | 2024-01-15 11:20 | P.PCN ---
Date of Procedure: 01/15/24 Procedure(s) Performed: BRIEF HISTORY: Patient is a with [id number] pleasant white male scheduled for an elective colonoscopy as a part of history of colon polyps PROCEDURE PERFORMED: Colonoscopy. PREOPERATIVE DIAGNOSIS: History of colon polyps. IV sedation per Anesthesia. PROCEDURE: After informed consent was obtained, the patient, was brought into the endoscopy unit. IV sedation was administered by Anesthesia under continuous monitoring. Digital rectal examination was normal. Initially the Olympus CF-160 flexible video colonoscope was then inserted in the rectum, gradually advanced into the cecum without any difficulty. Careful examination was performed as the scope was gradually being withdrawn. Ileocecal valve and the appendiceal orifice were visualized and appeared normal. Prep was excellent. Mucosa of the cecum, had a 5 limited polyp that was removed by cold snare polypectomy. In the hepatic flexure there was a 4 mm polyp removed by cold snare polypectomy. In the descending colon there was a 3 mm and 5 limited polyp removed by cold snare polypectomy. In the sigmoid colon there was a 6 polyps removed by cold snare polypect One of the closest seenomy. rectum appeared normal. Retroflexion was performed in the rectum and no lesions were seen. The patient tolerated the procedure well. IMPRESSION: 5 mm cecal polyp status post cold snare polypectomy 4 mm hepatic flexure polyp status post snare polypectomy 3 mm and 5 mm descending colon polyp status post cold snare polypectomy 6 mm sigmoid: Polyp status post snare polypectomy Scattered sigmoid diverticulosis RECOMMENDATIONS: Findings of this examination were discussed with the patient as well as his family. He was advised to follow with the biopsy results. If the biopsy can have a repeat colonoscopy in 3-5 years..
[2024-01-15 11:44] VITALS: PULSE 93; RESP 16
[2024-01-15 12:18] VITALS: BP 119/70
== END 2024-01-15 12:03 | disposition home or self-care (01) ==
LOC: ORWHC2ENDO 09:34
PROVIDERS: ATTEND Internal Medicine Gastroenterology
DX: Z12.11 Encounter for screening for malignant neoplasm of colon (principal); D12.4 Benign neoplasm of descending colon; D12.3 Benign neoplasm of transverse colon; K57.30 Diverticulosis of large intestine without perforation or abscess without bleeding; I25.10 Atherosclerotic heart disease of native coronary artery without angina pectoris; I10 Essential (primary) hypertension; E78.5 Hyperlipidemia, unspecified; F17.200 Nicotine dependence, unspecified, uncomplicated; Z79.01 Long term (current) use of anticoagulants; Z90.89 Acquired absence of other organs; Z98.890 Other specified postprocedural states; Z86.010 Personal history of colon polyps; Z79.899 Other long term (current) drug therapy
CPT/HCPCS: 88305; 45385; J2001; J2704

== ENCOUNTER 2024-07-15 16:16 | Inpatient (IN) | payer MEDICARE ==
[2024-07-15 16:35] LABS: Glucose,Whole Blood 113 mg/dL (70-110)
[2024-07-15 17:20] LABS: Basophils % (A) 0 %; Eosinophils # (A) 0.1 k/uL (0-0.7); Eosinophils % (A) 1 %; Hypochromasia Slight; Lymphocytes # (A) 0.7 k/uL (1.0-4.8); Lymphocytes % (A) 5 %; MCH 34.8 pg (25.0-35.0); MCV 108.7 fL (80.0-100.0); Macrocytosis Marked; Mean Platelet Volume 8.3; Monocytes # (A) 0.9 k/uL (0-1.0); Monocytes % (A) 6 %; Neutrophils # (A) 12.7 k/uL (1.3-7.7); Neutrophils % (A) 87 %; Platelet Count 194 k/uL (150-450); RBC 4.32 m/uL (4.30-5.90); RDW 15.9 % (11.5-15.5); WBC 14.5 k/uL (3.8-10.6)
[2024-07-15 17:21] LABS: VBG PH 7.37 (7.31-7.41)
[2024-07-15] MEDS: METOPROLOL TARTRATE 5 MG/5 ML VIAL IVP STA (17:30)
[2024-07-15] MEDS: SODIUM CHLORIDE 0.9% 1,000 ML IV ONE ×2 (17:32→17:33)
--- NOTE | 2024-07-15 17:32 | CT ---
EXAMINATION TYPE: CT brain wo con DATE OF EXAM: 07/15/2024 COMPARISON: None INDICATION: AMS DLP: 1256.4 mGycm, Automated exposure control for dose reduction was used. CONTRAST: None CT of the brain is performed utilizing 3 mm thick sections through the posterior fossa and 3 mm thick sections through the remaining calvarium. Study is performed within 24 hours of arrival to the hosp ital. No abnormal hyperdensity is present to suggest an acute intracranial hemorrhage. No mass lesion is evident. No acute infarcts are evident. Some minimal periventricular white matter hypodensity is present, like ly on the basis of chronic white matter ischemic changes. Ventricles and sulci are appropriate for the patient age. Paranasal sinuses and mastoid air cells within the [id number] are clear. IMPRESSION: 1. No acute intracranial process. Follow up MRI can be performed as clinically indicated. 2. Minimal chronic appearing periventricular white matter ischemic-type changes
[2024-07-15 17:33] LABS: Partial Thromboplastin Time 36.7 sec (22.0-30.0); Prothrombin Time 29.5 sec (10.0-12.5)
--- NOTE | 2024-07-15 17:33 | XR ---
EXAMINATION TYPE: XR chest 2V DATE OF EXAM: 07/15/2024 COMPARISON: 06/06/2016 INDICATION: Altered mental status TECHNIQUE: Frontal and lateral views of the chest are obtained. FINDINGS: The heart size is normal. The pulmonary vasculature is normal. The lungs are clear. There is hyperinflation and flattened diaphragms compatible with COPD IMPRESSION: 1. No acute pulmonary process. 2 COPD
[2024-07-15 17:34] LABS: ALT 106 U/L (4-49); AST 72 U/L (17-59); African American GFR (CKD) >90 (>60 ml/min/1.73 sqM); Albumin 4.3 g/dL (3.5-5.0); Alcohol <10 mg/dL; Alkaline Phosphatase 266 U/L (38-126); Anion Gap 9 mmol/L; Blood Urea Nitrogen 12 mg/dL (9-20); Calcium 9.3 mg/dL (8.4-10.2); Carbon Dioxide 26 mmol/L (22-30); Chloride 100 mmol/L (98-107); Glucose 124 mg/dL (74-99); Lactic Acid, Venous 1.6 mmol/L (0.7-2.0); Non-African American GFR(CKD) 84 (>60 ml/min/1.73 sqM); Potassium 4.5 mmol/L (3.5-5.1); Sodium 135 mmol/L (137-145); Total Bilirubin 4.5 mg/dL (0.2-1.3); Total Protein 7.7 g/dL (6.3-8.2)
[2024-07-15 17:42] LABS: NT-Pro-B-Type Natriuretic Pept 1940 pg/mL
--- NOTE | 2024-07-15 17:54 | CT ---
EXAMINATION TYPE: CT abdomen pelvis wo con DATE OF EXAM: 07/15/2024 COMPARISON: 06/06/2018 INDICATION: Hematuria DLP: 967 mGycm, Automated exposure control for dose reduction was used. CONTRAST: 0 mL of Isovue 300. Study performed without Oral Contrast TECHNIQUE: Axial images were obtained from above the diaphragm to the pubic rami in the axial plane a t 5 mm thick sections. Reconstructed images are reviewed on the computer in the coronal plane. FINDINGS: Limited CT sections are obtained the lung bases. The lung bases are clear. Coronary artery calcific ation is present. CT ABDOMEN: Liver: Calcification is in the superior right lobe liver Spleen: Normal Pancreas: Normal Adrenal glands: The adrenal glands are normal. Gallbladder: Normal Kidneys: Bilateral perinephric stranding is present. No masses are evident. No hydronephrosis is pres ent. No cysts are present. No renal stones identified. Appears to be some minimal vascular calcifi cation within the left renal hilum Aorta: Vascular calcification is within the aorta. Aortic stent is present extending to the common f emoral arteries. Contrast is not present. Patency cannot be confirmed. Inferior vena cava: Normal. CT PELVIS: Loops of bowel within the abdomen and pelvis are normal. This study is without oral contrast limi ting evaluation. Appendix: Normal as visualized. Urinary bladder: Normal. Genitourinary structures: Couple small calcifications are within the prostate. Osseous structures: No suspicious lytic or sclerotic lesions. Sent degenerative changes are within th e lower lumbar spine. IMPRESSION: 1. No suspicious renal or ureteral stones. 2. Perinephric stranding bilaterally. Correlate for pyelonephritis.
[2024-07-15] MEDS: ACETAMINOPHEN TAB 500 MG TAB PO STA (18:04)
[2024-07-15] MEDS ORDERED: VANCOMYCIN IV PER PHARMACY 1 EACH MISC MISCELLANE PRN (18:27)
--- NOTE | 2024-07-15 18:50 | ED ---
General Adult HPI - General Chief complaint: Weakness Stated complaint: back pain Time Seen by Provider: 07/15/24 16:46 Source: patient, RN notes reviewed, old records reviewed Mode of arrival: ambulatory Limitations: no limitations - History of Present Illness Initial comments: Patient is a 73-year-old male presents emergency department complaining of weakness. Patient had an episode earlier where he was confused according to . This occurred prior to arrival. Has a history of atrial fibrillation on blood thinners, abdominal aorta bypass surgery, hypertension, hyperlipidemia. Patient has been complaining of somewhat worsening bilateral upper back pain in the area of the kidneys as well as hematuria. Denies chest pain or shortness of breath. Denies abdominal pain. Had the 1 episode of nausea with nonbilious nonbloody emesis but nothing since. Has no other acute complaints at this time. Currently is acting normally. Unknown regarding fever. Presents for further evaluation at this time. - Related Data Home Medications Medication Instructions Recorded Confirmed Gabapentin 600 mg PO BID 06/06/18 07/15/24 Warfarin [Coumadin] 5 mg PO HS 12/03/18 07/15/24 Folic Acid 1 mg PO DAILY 01/14/24 07/15/24 Furosemide [Lasix] 20 mg PO DAILY 01/14/24 07/15/24 Metoprolol Tartrate 25 mg PO BID 01/14/24 07/15/24 Rosuvastatin [Crestor] 20 mg PO HS 01/14/24 07/15/24 Hyoscyamine Sulfate [Levsin-Sl] 0.125 mg SL Q4H PRN 07/15/24 07/15/24 Omeprazole 40 mg PO BID 07/15/24 07/15/24 Potassium Chloride ER [K-Dur 20] 20 meq PO BID 07/15/24 07/15/24 Allergies Allergy/AdvReac Type Severity Reaction Status Date / Time No Known Allergies Allergy Verified 07/15/24 16:32 Review of Systems ROS Statement: Those systems with pertinent positive or pertinent negative responses have been documented in the HPI. Review of Systems: CONST: Denies fever EYES: Denies blurry vision ENT: Denies nasal congestion C/V: Denies Chest pain RESP: Denies shortness of breath GI: Denies abdominal pain : Denies dysuria SKIN: Denies rash. MSK: Denies joint pain. NEURO: Denies headache ROS Other: All systems not noted in ROS Statement are negative. Past Medical History Past Medical History: Coronary Artery Disease (CAD), Deep Vein Thrombosis (DVT), Hyperlipidemia, Hypertension, Musculoskeletal Disorder, Vascular Disorder Additional Past Medical History / Comment(s): BACK PAIN dvt 5-6 yrs ago History of Any Multi-Drug Resistant Organisms: None Reported Additional Past Surgical History / Comment(s): THUMB SURGERY RIGHT HAND, aorto bi-femoral bypass may 2018 with left lower leg fasciotomy throbectomy rt leg Past Anesthesia/Blood Transfusion Reactions: No Reported Reaction Past Psychological History: No Psychological Hx Reported Smoking Status: Current some day smoker Past Alcohol Use History: Occasional Past Drug Use History: None Reported - Past Family History Father Family Medical History: No Reported History Mother Family Medical History: Cancer General Exam - General Exam Comments Initial Comments: General: Appears in no acute distress. HEAD: Normal with no signs of head trauma. EYES: PERRLA, EOMI, conjunctiva normal, no discharge. Pupils are 3 mm and equal bilaterally. ENT: Hearing grossly intact, normal oropharynx. RESPIRATORY: Clear breath sounds bilaterally. No wheezes, rales, or rhonchi. C/V: Irregular rate and rhythm. S1 and S2 auscultated, no edema, peripheral pulses 2+ and intact throughout ABD: Abd is soft, nontender, nondistended EXT: Normal range of motion, no obvious deformity SKIN: No rashes or lesions observed on exposed skin. NEURO: Alert and oriented x 4. Cranial nerves II-XII intact. No focal sensory or strength deficits. GCS of 15. NIH is 0. Limitations: no limitations Course Vital Signs 07/15/24 07/15/24 07/15/24 16:28 16:40 17:30 Temperature 99.7 F H 99.7 F H Pulse Rate 145 H 147 H 133 H Respiratory 20 19 25 H Rate Blood Pressure 113/53 98/72 105/71 O2 Sat by Pulse 94 L 97 91 L Oximetry 07/15/24 07/15/24 07/15/24 17:45 18:00 18:15 Temperature Pulse Rate 142 H 122 H 114 H Respiratory 26 H 19 23 Rate Blood Pressure 113/65 94/58 94/58 O2 Sat by Pulse 93 L 91 L 95 Oximetry 07/15/24 07/15/24 07/15/24 18:22 18:30 18:45 Temperature 102.8 F H Pulse Rate 118 H Respiratory 15 17 Rate Blood Pressure 99/69 102/66 O2 Sat by Pulse 91 L 93 L Oximetry 07/15/24 07/15/24 07/15/24 19:30 19:45 19:50 Temperature 98.7 F Pulse Rate 114 H 129 H 107 H Respiratory 19 21 17 Rate Blood Pressure 104/62 97/68 O2 Sat by Pulse 92 L 92 L Oximetry 07/15/24 07/15/24 07/15/24 19:55 20:00 20:05 Temperature Pulse Rate 104 H 118 H Respiratory 22 23 22 Rate Blood Pressure 101/22 101/22 86/55 O2 Sat by Pulse 94 L 93 L 92 L Oximetry 07/15/24 07/15/24 20:10 21:45 Temperature Pulse Rate 111 H 99 Respiratory 18 18 Rate Blood Pressure 86/55 103/71 O2 Sat by Pulse 92 L 94 L Oximetry Medical Decision Making - Medical Decision Making Was pt. sent in by a medical professional or institution (, PA, SUPERVISOR SCOURING PADS, urgent care, hospital, or residential...) When possible be specific @ -No Did you speak to anyone other than the patient for history (EMS, parent, family, police, friend...)? What history was obtained from this source @ -Spoke with patient's who witnessed the incident earlier. Did history regarding this. Did you review nursing and triage notes (agree or disagree)? Why? @ -I reviewed and agree with nursing and triage notes Were old charts reviewed (outside hosp., previous admission, EMS record, old EKG, old radiological studies, urgent care reports/EKG's, residential records)? Report findings @ -Charts reviewed including EKG from June 2018 no obvious acute ischemic changes at this time Differential Diagnosis (chest pain, altered mental status, abdominal pain women, abdominal pain men, vaginal bleeding, weakness, fever, dyspnea, syncope, headache, dizziness, GI bleed, back pain, seizure, CVA, palpatations, mental health, musculoskeletal)? @ -Differential Weakness: Hypoglycemia, shock, sepsis, hyponatremia, anemia, infection, SC, ETOH, adverse medicine reaction, overdose, stroke, this is not meant to be an all-inclusive list. Differential altered mental status EKG interpreted by me (3pts min.). @ -As above X-rays interpreted by me (1pt min.). @ -Chest x-ray reveals no obvious acute cardiopulmonary process. CT interpreted by me (1pt min.). @ -CT brain reveals no obvious acute injury or bleed. Chronic degenerative changes present. The abdomen pelvis reveals perinephric stranding bilaterally which could represent pyelonephritis. U/S interpreted by me (1pt. min.). @ -None done What testing was considered but not performed or refused? (CT, X-rays, U/S, labs)? Why? @ -None What meds were considered but not given or refused? Why? @ -None Did you discuss the management of the patient with other professionals (professionals i.e. Dr., PA, SUPERVISOR SC[employer]ING [employer], lab, RT, psych nurse, social media content specialist, mysql database administrator, teacher, title officer, heel caser)? Give summary @ -I spoke with Dr. Montes of [facility] who accepted the admission. Discussed that the ultrasound is still pending at this time and he did agree to follow-up on the results. Updated him on the results of the ultrasound as well as the plan with Dr. Ontiveros. He was in agreement. Spoke with Dr. Weston ALBERTO who is in agreement with the plan as well as make the patient n.p.o. after midnight. Was smoking cessation discussed for >3mins.? @ -No Was critical care preformed (if so, how long)? @ -Yes, 38 minutes. Were there social determinants of health that impacted care today? How? (Homelessness, low income, unemployed, alcoholism, drug addiction, transportation, low edu. Level, literacy, decrease access to med. care, half-way, rehab)? @ -No Was there de-escalation of care discussed even if they declined (Discuss DNR or withdrawal of care, Hospice)? DNR status @ -No What co-morbidities impacted this encounter? (DM, HTN, Smoking, COPD, CAD, Cancer, CVA, ARF, Chemo, Hep., AIDS, mental health diagnosis, sleep apnea, morbid obesity)? @ -Atrial fibrillation on blood thinners Was patient admitted / discharged? Hospital course, mention meds given and route, prescriptions, significant lab abnormalities, going to OR and other pertinent info. @ -Based on the patient's presentation and physical exam, patient presents emergency department for weakness and an episode of altered mental status at home. Patient appears to be in an exacerbation of his A-fib with RVR. Patient be given a dose of IV metoprolol as well as IV fluid boluses. Borderline fever at 99.7 which we will continue to monitor. Vital signs otherwise within acceptable limits. Broad workup will be obtained. EKG shows A-fib with RVR. Laboratory studies remarkable for leukocytosis of 14.5. INR is borderline at 3.0. Patient has an elevated LFTs, alk phos as well as total bilirubin with no obvious acute complaints regarding the abdomen. We will obtain ultrasound of the gallbladder. Imaging revealed no obvious acute process of the brain or chest. Possible perinephric stranding bilaterally. Urinalysis is still pending. On reevaluation, patient remains tachycardic after a dose of IV metoprolol at 122 bpm. It is improved from 1 50-1 60s. He is febrile at this time. Technically based on SIRS criteria he meets for sepsis criteria. Sepsis criteria met at 1830. Patient started on broad-spectrum antibiotics cefepime as well as vancomycin. Patient already given partial 2 L fluid bolus which we will complete and patient will be placed on maintenance fluids at 130 cc an hour to meet the 30 cc/kg bolus requirements. Patient given additional Motrin for the fever in addition to the Tylenol already given. Patient was in agreement this plan. Ultrasound of the gallbladder as well as urinalysis still pending. A-fib with RVR seems to be improving. Will continue to monitor. Patient's vital signs improved following IV fluids. He is also improved in terms of his fever. Blood pressure remained stable. Gallbladder ultrasound is still pending at this time. Dr. Mckeon of GI will be consulted. Cardiology will be consulted for the A-fib with RVR. I spoke with Dr. Montes who accepted the admission. He will follow-up with gallbladder ultrasound which is yet to be read. Patient's laboratory studies are still pending the lipase however patient's fractionated bilirubin is remarkable for total bilirubin of 4.4 with an elevated conjugated bilirubin of 1.7. Urinalysis ended up returning negative for UTI. Ultrasound as interpreted by radiology reveals a dilated CBD. Reevaluation CT shows possible 7 mm stone in the hepatobiliary system. No evidence of cholecystitis. On reevaluation, patient remains asymptomatic. Switched from cefepime to Zosyn due to concern for cholangitis. Patient is resting comfortably. Blood pressure is 103/71. A-fib with RVR is controlled. Discussed with the patient and he will be made n.p.o. after midnight after discussion with Dr. Ontiveros of GI. We will hold patient's anticoagulation as well. He was in agreement this plan. I updated Dr. Montes who is in agreement with the plan. Undiagnosed new problem with uncertain prognosis? @ -No Drug Therapy requiring intensive monitoring for toxicity (Heparin, Nitro, Insulin, Cardizem)? @ -No Were any procedures done? @ -No Diagnosis/symptom? @ -Sepsis likely secondary to cholangitis, weakness, atrial fibrillation with RVR Acute, or Chronic, or Acute on Chronic? @ -Acute Uncomplicated (without systemic symptoms) or Complicated (systemic symptoms)? @ -Complicated Side effects of treatment? @ -None Exacerbation, Progression, or Severe Exacerbation] @ -No Poses a threat to life or bodily function? @ -Yes Diagnosis/symptom? @ -Elevated LFTs, bilirubin in setting of suspected cholangitis Acute, or Chronic, or Acute on Chronic? @ -Acute Uncomplicated (without systemic symptoms) or Complicated (systemic symptoms)? @ -Complicated Side effects of treatment? @ -None Exacerbation, Progression, or Severe Exacerbation] @ -No Poses a threat to life or bodily function? @ -Potentially, yes - Lab Data Result diagrams: 07/15/24 17:00 07/15/24 17:00 Lab Results 07/15/24 07/15/24 07/15/24 Range/Units 16:34 17:00 17:00 WBC 14.5 H (3.8-10.6) k/uL RBC 4.32 (4.30-5.90) m/uL Hgb 15.0 (13.0-17.5) gm/dL Hct 47.0 (39.0-53.0) % MCV 108.7 H (80.0-100.0) fL MCH 34.8 (25.0-35.0) pg MCHC 32.0 (31.0-37.0) g/dL RDW 15.9 H (11.5-15.5) % Plt Count 194 (150-450) k/uL MPV 8.3 Neutrophils % 87 % Lymphocytes % 5 % Monocytes % 6 % Eosinophils % 1 % Basophils % 0 % Neutrophils # 12.7 H (1.3-7.7) k/uL Lymphocytes # 0.7 L (1.0-4.8) k/uL Monocytes # 0.9 (0-1.0) k/uL Eosinophils # 0.1 (0-0.7) k/uL Basophils # 0.0 (0-0.2) k/uL Manual Slide Review Performed Hypochromasia Slight Macrocytosis Marked A PT 29.5 H (10.0-12.5) sec INR 3.0 H (<1.2) APTT 36.7 H (22.0-30.0) sec VBG pH (7.31-7.41) VBG pCO2 (37-51) mmHg VBG HCO3 (24-28) mmol/L Sodium (137-145) mmol/L Potassium (3.5-5.1) mmol/L Chloride (98-107) mmol/L Carbon Dioxide (22-30) mmol/L Anion Gap mmol/L BUN (9-20) mg/dL Creatinine (0.66-1.25) mg/dL Est GFR (CKD-EPI)AfAm (>60 ml/min/1.73 sqM) Est GFR (CKD-EPI)NonAf (>60 ml/min/1.73 sqM) Glucose (74-99) mg/dL POC Glucose (mg/dL) 113 H (70-110) mg/dL POC Glu Fuel Cell Test Engineer BRITTANY BarChris Plasma Lactic Acid Berry (0.7-2.0) mmol/L Calcium (8.4-10.2) mg/dL Total Bilirubin (0.2-1.3) mg/dL Conjugated Bilirubin (0.0-0.3) mg/dL Unconjugated Bilirubin (0.0-1.1) mg/dL Delta Bilirubin (0.0-0.2) mg/dL AST (17-59) U/L ALT (4-49) U/L Alkaline Phosphatase (38-126) U/L Ammonia (<30) umol/L Troponin I (0.000-0.034) ng/mL NT-Pro-B Natriuret Pep pg/mL Total Protein (6.3-8.2) g/dL Albumin (3.5-5.0) g/dL Urine Color Urine Appearance (Clear) Urine pH (5.0-8.0) Ur Specific [place] (1.001-1.035) Urine Protein (Negative) Urine Glucose (UA) (Negative) Urine Ketones (Negative) Urine Blood (Negative) Urine Nitrite (Negative) Urine Bilirubin (Negative) Urine Urobilinogen (<2.0) mg/dL Ur Leukocyte Esterase (Negative) Urine RBC (0-5) /hpf Urine WBC (0-5) /hpf Ur Squamous Epith Cells (0-4) /hpf Urine Opiates Screen (NotDetected) Ur Oxycodone Screen (NotDetected) Urine Methadone Screen (NotDetected) Ur Barbiturates Screen (NotDetected) U Tricyclic Antidepress (NotDetected) Ur Phencyclidine Scrn (NotDetected) Ur Amphetamines Screen (NotDetected) U Methamphetamines Scrn (NotDetected) U Benzodiazepines Scrn (NotDetected) Urine Cocaine Screen (NotDetected) U Marijuana (THC) Screen (NotDetected) Serum Alcohol mg/dL Influenza Type A (PCR) (Not Detectd) Influenza Type B (PCR) (Not Detectd) RSV (PCR) (Not Detectd) SARS-CoV-2 (PCR) (Not Detectd) 07/15/24 07/15/24 07/15/24 Range/Units 17:00 17:00 17:00 WBC (3.8-10.6) k/uL RBC (4.30-5.90) m/uL Hgb (13.0-17.5) gm/dL Hct (39.0-53.0) % MCV (80.0-100.0) fL MCH (25.0-35.0) pg MCHC (31.0-37.0) g/dL RDW (11.5-15.5) % Plt Count (150-450) k/uL MPV Neutrophils % % Lymphocytes % % Monocytes % % Eosinophils % % Basophils % % Neutrophils # (1.3-7.7) k/uL Lymphocytes # (1.0-4.8) k/uL Monocytes # (0-1.0) k/uL Eosinophils # (0-0.7) k/uL Basophils # (0-0.2) k/uL Manual Slide Review Hypochromasia Macrocytosis PT (10.0-12.5) sec INR (<1.2) APTT (22.0-30.0) sec VBG pH (7.31-7.41) VBG pCO2 (37-51) mmHg VBG HCO3 (24-28) mmol/L Sodium 135 L (137-145) mmol/L Potassium 4.5 (3.5-5.1) mmol/L Chloride 100 (98-107) mmol/L Carbon Dioxide 26 (22-30) mmol/L Anion Gap 9 mmol/L BUN 12 (9-20) mg/dL Creatinine 0.90 (0.66-1.25) mg/dL Est GFR (CKD-EPI)AfAm >90 (>60 ml/min/1.73 sqM) Est GFR (CKD-EPI)NonAf 84 (>60 ml/min/1.73 sqM) Glucose 124 H (74-99) mg/dL POC Glucose (mg/dL) (70-110) mg/dL POC Glu Fuel Cell Test Engineer ID Plasma Lactic Acid Berry 1.6 (0.7-2.0) mmol/L Calcium 9.3 (8.4-10.2) mg/dL Total Bilirubin 4.5 H (0.2-1.3) mg/dL Conjugated Bilirubin (0.0-0.3) mg/dL Unconjugated Bilirubin (0.0-1.1) mg/dL Delta Bilirubin (0.0-0.2) mg/dL AST 72 H (17-59) U/L ALT 106 H (4-49) U/L Alkaline Phosphatase 266 H (38-126) U/L Ammonia <9 (<30) umol/L Troponin I <0.012 (0.000-0.034) ng/mL NT-Pro-B Natriuret Pep 1940 pg/mL Total Protein 7.7 (6.3-8.2) g/dL Albumin 4.3 (3.5-5.0) g/dL Urine Color Urine Appearance (Clear) Urine pH (5.0-8.0) Ur Specific [place] (1.001-1.035) Urine Protein (Negative) Urine Glucose (UA) (Negative) Urine Ketones (Negative) Urine Blood (Negative) Urine Nitrite (Negative) Urine Bilirubin (Negative) Urine Urobilinogen (<2.0) mg/dL Ur Leukocyte Esterase (Negative) Urine RBC (0-5) /hpf Urine WBC (0-5) /hpf Ur Squamous Epith Cells (0-4) /hpf Urine Opiates Screen (NotDetected) Ur Oxycodone Screen (NotDetected) Urine Methadone Screen (NotDetected) Ur Barbiturates Screen (NotDetected) U Tricyclic Antidepress (NotDetected) Ur Phencyclidine Scrn (NotDetected) Ur Amphetamines Screen (NotDetected) U Methamphetamines Scrn (NotDetected) U Benzodiazepines Scrn (NotDetected) Urine Cocaine Screen (NotDetected) U Marijuana (THC) Screen (NotDetected) Serum Alcohol <10 mg/dL Influenza Type A (PCR) (Not Detectd) Influenza Type B (PCR) (Not Detectd) RSV (PCR) (Not Detectd) SARS-CoV-2 (PCR) (Not Detectd) 07/15/24 07/15/24 07/15/24 Range/Units 17:00 17:00 17:00 WBC (3.8-10.6) k/uL RBC (4.30-5.90) m/uL Hgb (13.0-17.5) gm/dL Hct (39.0-53.0) % MCV (80.0-100.0) fL MCH (25.0-35.0) pg MCHC (31.0-37.0) g/dL RDW (11.5-15.5) % Plt Count (150-450) k/uL MPV Neutrophils % % Lymphocytes % % Monocytes % % Eosinophils % % Basophils % % Neutrophils # (1.3-7.7) k/uL Lymphocytes # (1.0-4.8) k/uL Monocytes # (0-1.0) k/uL Eosinophils # (0-0.7) k/uL Basophils # (0-0.2) k/uL Manual Slide Review Hypochromasia Macrocytosis PT (10.0-12.5) sec INR (<1.2) APTT (22.0-30.0) sec VBG pH 7.37 (7.31-7.41) VBG pCO2 47 (37-51) mmHg VBG HCO3 27 (24-28) mmol/L Sodium (137-145) mmol/L Potassium (3.5-5.1) mmol/L Chloride (98-107) mmol/L Carbon Dioxide (22-30) mmol/L Anion Gap mmol/L BUN (9-20) mg/dL Creatinine (0.66-1.25) mg/dL Est GFR (CKD-EPI)AfAm (>60 ml/min/1.73 sqM) Est GFR (CKD-EPI)NonAf (>60 ml/min/1.73 sqM) Glucose (74-99) mg/dL POC Glucose (mg/dL) (70-110) mg/dL POC Glu Fuel Cell Test Engineer ID Plasma Lactic Acid Berry (0.7-2.0) mmol/L Calcium (8.4-10.2) mg/dL Total Bilirubin 4.4 H (0.2-1.3) mg/dL Conjugated Bilirubin 1.7 H (0.0-0.3) mg/dL Unconjugated Bilirubin 1.0 (0.0-1.1) mg/dL Delta Bilirubin 1.7 H (0.0-0.2) mg/dL AST (17-59) U/L ALT (4-49) U/L Alkaline Phosphatase (38-126) U/L Ammonia (<30) umol/L Troponin I (0.000-0.034) ng/mL NT-Pro-B Natriuret Pep pg/mL Total Protein (6.3-8.2) g/dL Albumin (3.5-5.0) g/dL Urine Color Urine Appearance (Clear) Urine pH (5.0-8.0) Ur Specific [place] (1.001-1.035) Urine Protein (Negative) Urine Glucose (UA) (Negative) Urine Ketones (Negative) Urine Blood (Negative) Urine Nitrite (Negative) Urine Bilirubin (Negative) Urine Urobilinogen (<2.0) mg/dL Ur Leukocyte Esterase (Negative) Urine RBC (0-5) /hpf Urine WBC (0-5) /hpf Ur Squamous Epith Cells (0-4) /hpf Urine Opiates Screen (NotDetected) Ur Oxycodone Screen (NotDetected) Urine Methadone Screen (NotDetected) Ur Barbiturates Screen (NotDetected) U Tricyclic Antidepress (NotDetected) Ur Phencyclidine Scrn (NotDetected) Ur Amphetamines Screen (NotDetected) U Methamphetamines Scrn (NotDetected) U Benzodiazepines Scrn (NotDetected) Urine Cocaine Screen (NotDetected) U Marijuana (THC) Screen (NotDetected) Serum Alcohol mg/dL Influenza Type A (PCR) Not Detected (Not Detectd) Influenza Type B (PCR) Not Detected (Not Detectd) RSV (PCR) Not Detected (Not Detectd) SARS-CoV-2 (PCR) Not Detected (Not Detectd) 07/15/24 07/15/24 Range/Units 20:40 20:40 WBC (3.8-10.6) k/uL RBC (4.30-5.90) m/uL Hgb (13.0-17.5) gm/dL Hct (39.0-53.0) % MCV (80.0-100.0) fL MCH (25.0-35.0) pg MCHC (31.0-37.0) g/dL RDW (11.5-15.5) % Plt Count (150-450) k/uL MPV Neutrophils % % Lymphocytes % % Monocytes % % Eosinophils % % Basophils % % Neutrophils # (1.3-7.7) k/uL Lymphocytes # (1.0-4.8) k/uL Monocytes # (0-1.0) k/uL Eosinophils # (0-0.7) k/uL Basophils # (0-0.2) k/uL Manual Slide Review Hypochromasia Macrocytosis PT (10.0-12.5) sec INR (<1.2) APTT (22.0-30.0) sec VBG pH (7.31-7.41) VBG pCO2 (37-51) mmHg VBG HCO3 (24-28) mmol/L Sodium (137-145) mmol/L Potassium (3.5-5.1) mmol/L Chloride (98-107) mmol/L Carbon Dioxide (22-30) mmol/L Anion Gap mmol/L BUN (9-20) mg/dL Creatinine (0.66-1.25) mg/dL Est GFR (CKD-EPI)AfAm (>60 ml/min/1.73 sqM) Est GFR (CKD-EPI)NonAf (>60 ml/min/1.73 sqM) Glucose (74-99) mg/dL POC Glucose (mg/dL) (70-110) mg/dL POC Glu Fuel Cell Test Engineer ID Plasma Lactic Acid Berry (0.7-2.0) mmol/L Calcium (8.4-10.2) mg/dL Total Bilirubin (0.2-1.3) mg/dL Conjugated Bilirubin (0.0-0.3) mg/dL Unconjugated Bilirubin (0.0-1.1) mg/dL Delta Bilirubin (0.0-0.2) mg/dL AST (17-59) U/L ALT (4-49) U/L Alkaline Phosphatase (38-126) U/L Ammonia (<30) umol/L Troponin I (0.000-0.034) ng/mL NT-Pro-B Natriuret Pep pg/mL Total Protein (6.3-8.2) g/dL Albumin (3.5-5.0) g/dL Urine Color Dark Yellow Urine Appearance Clear (Clear) Urine pH 7.0 (5.0-8.0) Ur Specific [place] 1.016 (1.001-1.035) Urine Protein 1+ H (Negative) Urine Glucose (UA) Negative (Negative) Urine Ketones Negative (Negative) Urine Blood Negative (Negative) Urine Nitrite Negative (Negative) Urine Bilirubin 2+ H (Negative) Urine Urobilinogen 4.0 (<2.0) mg/dL Ur Leukocyte Esterase Negative (Negative) Urine RBC 1 (0-5) /hpf Urine WBC 5 (0-5) /hpf Ur Squamous Epith Cells <1 (0-4) /hpf Urine Opiates Screen Detected H (NotDetected) Ur Oxycodone Screen Not Detected (NotDetected) Urine Methadone Screen Not Detected (NotDetected) Ur Barbiturates Screen Not Detected (NotDetected) U Tricyclic Antidepress Not Detected (NotDetected) Ur Phencyclidine Scrn Not Detected (NotDetected) Ur Amphetamines Screen Not Detected (NotDetected) U Methamphetamines Scrn Not Detected (NotDetected) U Benzodiazepines Scrn Not Detected (NotDetected) Urine Cocaine Screen Not Detected (NotDetected) U Marijuana (THC) Screen Not Detected (NotDetected) Serum Alcohol mg/dL Influenza Type A (PCR) (Not Detectd) Influenza Type B (PCR) (Not Detectd) RSV (PCR) (Not Detectd) SARS-CoV-2 (PCR) (Not Detectd) - EKG Data -: EKG Interpreted by Me EKG Comments: 12-lead Electrocardiogram Interpretation Note EKG was reviewed and interpreted by myself. 12-lead ECG performed at 1643 is interpreted by me as revealing atrial fibrillation with RVR at a rate of 148 beats per minute. Indeterminate axis. QRS duration is 90 ms, QTc is 353 ms.. There were no ST or T wave abnormalities to suggest myocardial ischemia or injury. R wave progression across the precordium was satisfactory. By my interpretation this EKG is non-diagnostic for acute ischemia. Critical Care Time Critical Care Time: Yes Total Critical Care Time: 38 Disposition Clinical Impression: Sepsis, Atrial fibrillation with RVR, Hyperbilirubinemia, Cholangitis Disposition: ADMITTED IP TO THIS HOSP Condition: Serious Time of Disposition: 20:35
[2024-07-15] MEDS: SODIUM CHLORIDE 0.9% 1,000 ML IV STA ×3 (18:56→20:45)
[2024-07-15] MEDS: IBUPROFEN 800 MG TAB PO STA (18:58)
[2024-07-15] MEDS: CEFEPIME 2 GM in SODIUM CHLORIDE 0.9% 100 ML IVPB STA (18:59)
[2024-07-15] MEDS: VANCOMYCIN 2,250 MG in SODIUM CHLORIDE 0.9% 500 ML 500 ML IVPB ONE (20:36)
[2024-07-15 20:46] LABS: Bilirubin, Conjugated 1.7 mg/dL (0.0-0.3); Bilirubin, Delta 1.7 mg/dL (0.0-0.2); Total Bilirubin 4.4 mg/dL (0.2-1.3)
[2024-07-15] MEDS ORDERED: NALOXONE 0.4 MG/ML 1 ML VIAL IV PRN (20:56)
[2024-07-15 21:03] LABS: Appearance,Urine Clear (Clear); Bilirubin,Urine 2+ (Negative); Blood,Urine Negative (Negative); Color,Urine Dark Yellow; Glucose,Urine (UA) Negative (Negative); Ketones,Urine Negative (Negative); Leukocyte Esterase,Urine Negative (Negative); Nitrite,Urine Negative (Negative); Protein,Urine 1+ (Negative); RBC,Urine 1 /hpf (0-5); Specific Gravity,Urine 1.016 (1.001-1.035); Squamous Epithelial Cell,Urine <1 /hpf (0-4); WBC,Urine 5 /hpf (0-5)
--- NOTE | 2024-07-15 21:04 | US ---
EXAMINATION TYPE: US gallbladder DATE OF EXAM: 07/15/2024 COMPARISON: Gadolinium pelvis on 1124 CLINICAL INDICATION: Male, 73 years old with history of elevated bilirubin.; Elevated bilirubin. Imani ent states he has problems with eating certain foods TECHNIQUE: Multiple sonographic images of the right upper quadrant are obtained. FINDINGS: EXAM MEASUREMENTS: Liver Length: 18.9 cm Gallbladder Wall: 0.5 cm CBD: 1.1 cm Right Kidney: 10.7 x 6.3 x 5.4 cm [employer] NOTES:Limited due to overlying bowel and patient unable to hold breath Pancreas: Obscured by bowel gas Liver: Hepatomegaly. Appears enlarged and heterogeneous. Limited evaluation due to overlying bowel g as and rib shadows Gallbladder: Wall appears slightly thickened. Echogenic layering material seen within the gallbladde r neck, ? small stones vs other GB appears hydropic measuring 12cm in length. Evidence for sonographic Parr's sign: No CBD: Dilated Right Kidney: wnl as best seen Right kidney is within normal limits. Common bile duct is dilated. Gallbladder demonstrates mild wall thickening with small gallstones in the neck. No surrounding fluid. Negative sonographic Parr's si gn. Liver is enlarged and heterogenous without focal lesion identified. Pancreas is obscured by overl jennifer bowel gas. IMPRESSION: 1. Cholelithiasis without ultrasound evidence for acute cholecystitis. 2. Dilated common bile duct. Retrospectively there appears to be a possible 7 mm calculus in the comm on bile duct at the pancreatic head on CT. Additionally retrospectively there appears to be pancreati c inflammatory changes suggestive of pancreatitis. Consider further evaluation with MRCP/ERCP. 3. Hepatomegaly.
[2024-07-15 21:12] LABS: Amphetamine Screen,Urine Not Detected (NotDetected); Barbiturate Screen,Urine Not Detected (NotDetected); Benzodiazepines Screen,Urine Not Detected (NotDetected); Cocaine Screen,Urine Not Detected (NotDetected); Methadone Screen, Urine Not Detected (NotDetected); Opiate Screen,Urine Detected (NotDetected); Oxycodone Screen, Urine Not Detected (NotDetected); Phencyclidine Screen,Urine Not Detected (NotDetected); Tricyclic Antidepressant,Urine Not Detected (NotDetected); Urn Cannabinoid Scrn Not Detected (NotDetected)
[2024-07-15] MEDS: METOPROLOL TARTRATE 25 MG TAB PO STA (23:06)
[2024-07-16] MEDS ORDERED: CEFEPIME 2 GM in SODIUM CHLORIDE 0.9% 100 ML IVPB SCH
[2024-07-16] MEDS: GABAPENTIN 300 MG CAP PO STA (06:17)
[2024-07-16] MEDS: VANCOMYCIN 2,000 MG in SODIUM CHLORIDE 0.9% 500 ML 500 ML IVPB SCH (08:09)
[2024-07-16] MEDS: PANTOPRAZOLE 40 MG/10 ML VIAL IVP SCH (08:43)
[2024-07-16] MEDS: FUROSEMIDE 20 MG TAB PO SCH (08:43)
[2024-07-16] MEDS: METOPROLOL TARTRATE 25 MG TAB PO SCH (08:44)
[2024-07-16 09:48] LABS: Basophils % (A) 0 %; Eosinophils # (A) 0.1 k/uL (0-0.7); Eosinophils % (A) 1 %; HCT 39.9 % (39.0-53.0); HGB 12.2 gm/dL (13.0-17.5); Hypochromasia Marked; Lymphocytes # (A) 1.1 k/uL (1.0-4.8); Lymphocytes % (A) 13 %; MCH 34.3 pg (25.0-35.0); MCHC 30.7 g/dL (31.0-37.0); MCV 111.6 fL (80.0-100.0); Macrocytosis Marked; Mean Platelet Volume 7.9; Monocytes # (A) 0.6 k/uL (0-1.0); Monocytes % (A) 7 %; Neutrophils # (A) 6.4 k/uL (1.3-7.7); Neutrophils % (A) 77 %; Platelet Count 166 k/uL (150-450); RBC 3.57 m/uL (4.30-5.90); RDW 15.4 % (11.5-15.5); WBC 8.3 k/uL (3.8-10.6)
[2024-07-16 09:58] LABS: INR 2.6 (<1.2); Prothrombin Time 25.3 sec (10.0-12.5)
[2024-07-16 09:59] LABS: ALT 70 U/L (4-49); AST 47 U/L (17-59); African American GFR (CKD) >90 (>60 ml/min/1.73 sqM); Albumin 3.1 g/dL (3.5-5.0); Alkaline Phosphatase 193 U/L (38-126); Anion Gap 4 mmol/L; Blood Urea Nitrogen 11 mg/dL (9-20); Calcium 8.3 mg/dL (8.4-10.2); Carbon Dioxide 24 mmol/L (22-30); Chloride 110 mmol/L (98-107); Glucose 86 mg/dL (74-99); Non-African American GFR(CKD) >90 (>60 ml/min/1.73 sqM); Potassium 4.1 mmol/L (3.5-5.1); Sodium 138 mmol/L (137-145); Total Protein 5.9 g/dL (6.3-8.2)
[2024-07-16] MEDS: PHYTONADIONE ORAL 5 MG/5 ML ORAL.SYRG PO STA (11:00)
--- NOTE | 2024-07-16 11:55 | P.CONS ---
History of Present Illness - Reason for Consult Consult date: 07/16/24 Elevated LFTs, hyperbilirubinemia Requesting physician: Harry Escoto - Chief Complaint Abdominal pain - History of Present Illness Pleasant 73-year-old female male who presented to the emergency department with complaints of abdominal pain mostly in the upper abdomen. States that onset was yesterday afternoon. But he has been having ongoing abdominal pain and has been seeing gastroenterology over the last 1 year duration. He states he has been on couple different medications and being treated for GERD. He states this pain is different was associated with nausea and vomiting. Currently rates it at a 9 out of 10, but states nausea and vomiting has subsided. He denied any fevers or chills. He did have leukocytosis on admission with elevated LFTs. Gastro enterology was consulted for elevated LFTs and hyperbilirubinemia. Past medical history includes coronary artery disease, Atrial fibrillation, DVT on anticoagulation, peripheral arterial disease status post stenting and GERD patient does take Coumadin last dose yesterday. Apparently when patient came in the had reported he had an episode of confusion earlier in the day and he did undergo a brain CT with no acute findings. He had a CT of the abdomen pelvis which reported no suspicious renal artery ureteral stones. Adonay nephrotic stranding bilaterally correlate for pyelonephritis. Patient was admitted and started on IV antibiotics. He also underwent a gallbladder ultrasound that reported CBD dilation and cholelithiasis with possible 7 mm calculus in the common bile duct. Admitting labs WBC 14.5 hemoglobin 15 hematocrit 47 platelet count 194,000 INR 3.0 sodium 135 potassium 4.5 BUN 9 creatinine 0.9 total bilirubin 4.4 AST 72 ALT 106 alkaline phosphatase 266 lipase 6189 Review of Systems REVIEW OF SYSTEMS: CARDIOPULMONARY: No chest pain or shortness of breath. Gastrointestinal: Abdominal pain. Nausea and vomiting now resolved. No hematemesis, coffee-ground emesis. No rectal bleeding, or melena. GENITOURINARY: No dysuria or hematuria. MUSCULOSKELETAL: Reports normal range of motion., Joint pain. SKIN: No rashes. No jaundice. ENDOCRINE: No chills, fevers. No excessive weight gain or loss. No polydipsia or polyuria. PSYCHIATRIC: Unremarkable. NEUROLOGY: No change in mental status. Denies dizziness, headache. ENT: Vision unremarkable. CONSTITUTIONAL: No recent weight loss. No fever, chills, night sweats. Past Medical History Past Medical History: Coronary Artery Disease (CAD), Deep Vein Thrombosis (DVT), Hyperlipidemia, Hypertension, Musculoskeletal Disorder, Vascular Disorder Additional Past Medical History / Comment(s): BACK PAIN dvt 5-6 yrs ago History of Any Multi-Drug Resistant Organisms: None Reported Additional Past Surgical History / Comment(s): THUMB SURGERY RIGHT HAND, aorto bi-femoral bypass may 2018 with left lower leg fasciotomy throbectomy rt leg Past Anesthesia/Blood Transfusion Reactions: No Reported Reaction Past Psychological History: No Psychological Hx Reported Smoking Status: Current some day smoker Past Alcohol Use History: Occasional Past Drug Use History: None Reported - Past Family History Father Family Medical History: No Reported History Mother Family Medical History: Cancer Medications and Allergies Home Medications Medication Instructions Recorded Confirmed Type Gabapentin 600 mg PO BID 06/06/18 07/15/24 History Warfarin [Coumadin] 5 mg PO HS 12/03/18 07/15/24 History Folic Acid 1 mg PO DAILY 01/14/24 07/15/24 History Furosemide [Lasix] 20 mg PO DAILY 01/14/24 07/15/24 History Metoprolol Tartrate 25 mg PO BID 01/14/24 07/15/24 History Rosuvastatin [Crestor] 20 mg PO HS 01/14/24 07/15/24 History Hyoscyamine Sulfate [Levsin-Sl] 0.125 mg SL Q4H PRN 07/15/24 07/15/24 History Omeprazole 40 mg PO BID 07/15/24 07/15/24 History Potassium Chloride ER [K-Dur 20] 20 meq PO BID 07/15/24 07/15/24 History Allergies Allergy/AdvReac Type Severity Reaction Status Date / Time No Known Allergies Allergy Verified 07/15/24 16:32 Physical Exam Vitals: Vital Signs Temp Pulse Resp BP Pulse Ox 07/16/24 08:13 104 H 18 108/67 93 L 07/16/24 05:58 89 20 111/57 96 07/16/24 03:37 94 20 113/77 95 07/16/24 01:30 79 16 104/54 94 L 07/16/24 01:00 87 17 97/60 94 L 07/16/24 00:30 84 18 105/57 95 07/16/24 00:15 84 16 109/72 94 L 07/15/24 23:45 98.0 F 94 14 160/61 93 L 07/15/24 23:30 93 17 104/61 93 L 07/15/24 23:15 92 19 96/56 92 L 07/15/24 23:00 105 H 18 92/56 91 L 07/15/24 22:45 95 17 95/72 94 L 07/15/24 22:30 99 17 83/47 93 L 07/15/24 22:15 90 17 90/55 93 L 07/15/24 22:00 98 13 104/59 94 L 07/15/24 21:45 99 18 103/71 94 L 07/15/24 21:30 106 H 21 85/48 92 L 07/15/24 21:15 104 H 17 94/53 93 L 07/15/24 20:45 101 H 19 93/62 93 L 07/15/24 20:30 107 H 19 93/62 93 L 07/15/24 20:15 118 H 19 100/74 92 L 07/15/24 20:10 111 H 18 86/55 92 L 07/15/24 20:05 118 H 22 86/55 92 L 07/15/24 20:00 104 H 23 101/22 93 L 07/15/24 19:55 22 101/22 94 L 07/15/24 19:50 107 H 17 07/15/24 19:45 129 H 21 97/68 92 L 07/15/24 19:30 98.7 F 114 H 19 104/62 92 L 07/15/24 18:45 17 102/66 93 L 07/15/24 18:30 118 H 15 99/69 91 L 07/15/24 18:22 102.8 F H 07/15/24 18:15 114 H 23 94/58 95 07/15/24 18:00 122 H 19 94/58 91 L 07/15/24 17:45 142 H 26 H 113/65 93 L 07/15/24 17:30 133 H 25 H 105/71 91 L 07/15/24 16:40 99.7 F H 147 H 19 98/72 97 07/15/24 16:28 99.7 F H 145 H 20 113/53 94 L Intake and Output 07/15/24 07/16/24 07/16/24 22:59 06:59 14:59 Intake Total 1000 Output Total 700 975 Balance -700 25 Intake: Intake, IV Titration 1000 Amount Sodium Chloride 0.9% 1, 1000 000 ml @ 130 mls/hr IV . Q7H42M STA Rx#:[id number] Output: Urine 700 975 Uretheral (Urrutia) 700 Other: Weight 111.584 kg General appearance: The patient is alert, oriented, appears in no acute distress. HET: Head is normocephalic and atraumatic. Conjunctiva pink. Sclera anicteric. Neck: Supple without lymphadenopathy. Trachea midline. Heart: Regular. Lungs: Equal expansion, normal respiratory effort. Abdomen: Soft, epigastric tenderness, nondistended. Skin: No rashes. No jaundice. Extremities: Normal skin color and turgor. No pedal edema. Neurological: No focal deficits. Alert and oriented x3. Results CBC & Chem 7: 07/16/24 09:09 07/16/24 09:09 Labs: Abnormal Lab Results - Last 24 Hours (Table) 07/15/24 07/15/24 07/15/24 Range/Units 16:34 17:00 17:00 WBC 14.5 H (3.8-10.6) k/uL MCV 108.7 H (80.0-100.0) fL RDW 15.9 H (11.5-15.5) % Neutrophils # 12.7 H (1.3-7.7) k/uL Lymphocytes # 0.7 L (1.0-4.8) k/uL Macrocytosis Marked A PT 29.5 H (10.0-12.5) sec INR 3.0 H (<1.2) APTT 36.7 H (22.0-30.0) sec Sodium (137-145) mmol/L Glucose (74-99) mg/dL POC Glucose (mg/dL) 113 H (70-110) mg/dL Total Bilirubin (0.2-1.3) mg/dL Conjugated Bilirubin (0.0-0.3) mg/dL Delta Bilirubin (0.0-0.2) mg/dL AST (17-59) U/L ALT (4-49) U/L Alkaline Phosphatase (38-126) U/L Lipase (23-300) U/L Urine Protein (Negative) Urine Bilirubin (Negative) Urine Opiates Screen (NotDetected) 07/15/24 07/15/24 07/15/24 Range/Units 17:00 17:00 17:00 WBC (3.8-10.6) k/uL MCV (80.0-100.0) fL RDW (11.5-15.5) % Neutrophils # (1.3-7.7) k/uL Lymphocytes # (1.0-4.8) k/uL Macrocytosis PT (10.0-12.5) sec INR (<1.2) APTT (22.0-30.0) sec Sodium 135 L (137-145) mmol/L Glucose 124 H (74-99) mg/dL POC Glucose (mg/dL) (70-110) mg/dL Total Bilirubin 4.5 H 4.4 H (0.2-1.3) mg/dL Conjugated Bilirubin 1.7 H (0.0-0.3) mg/dL Delta Bilirubin 1.7 H (0.0-0.2) mg/dL AST 72 H (17-59) U/L ALT 106 H (4-49) U/L Alkaline Phosphatase 266 H (38-126) U/L Lipase 6189 H (23-300) U/L Urine Protein (Negative) Urine Bilirubin (Negative) Urine Opiates Screen (NotDetected) 07/15/24 07/15/24 Range/Units 20:40 20:40 WBC (3.8-10.6) k/uL MCV (80.0-100.0) fL RDW (11.5-15.5) % Neutrophils # (1.3-7.7) k/uL Lymphocytes # (1.0-4.8) k/uL Macrocytosis PT (10.0-12.5) sec INR (<1.2) APTT (22.0-30.0) sec Sodium (137-145) mmol/L Glucose (74-99) mg/dL POC Glucose (mg/dL) (70-110) mg/dL Total Bilirubin (0.2-1.3) mg/dL Conjugated Bilirubin (0.0-0.3) mg/dL Delta Bilirubin (0.0-0.2) mg/dL AST (17-59) U/L ALT (4-49) U/L Alkaline Phosphatase (38-126) U/L Lipase (23-300) U/L Urine Protein 1+ H (Negative) Urine Bilirubin 2+ H (Negative) Urine Opiates Screen Detected H (NotDetected) Comments: CT abdomen pelvis without contrast reports no suspicious renal or ureteral stones. Perinephric stranding bilaterally. Correlate for pyelonephritis. Gallbladder ultrasound reports cholelithiasis without ultrasound evidence for acute cholecystitis. Dilated common bile duct. Retrospectively there appears to be a possible 7 mm calculus in the common bile duct at the pancreatic head on CT. Additionally retrospectively there appears to be pancreatic inflammatory changes suggestive of pancreatitis. Consider further evaluation with MRCP/ERCP. Hepatomegaly. Assessment and Plan (1) Elevated LFTs Narrative/Plan: 73-year-old male presenting with abdominal pain elevated LFTs and bilirubin in a cholestatic pattern as well as elevated lipase with ultrasound imaging with findings of dilated common bile duct and cholelithiasis. Patient admitted with gallstone pancreatitis likely secondary to choledocholithiasis. Patient also has leukocytosis, but afebrile. Unfortunately patient's INR is 3.0. Will plan to give vitamin K and repeat INR. Patient likely will need ERCP at some point once INR is stable Current Visit: Yes Status: Acute Code(s): R79.89 - OTHER SPECIFIED ABNORMAL FINDINGS OF BLOOD CHEMISTRY SNOMED Code(s): 091959769 (2) Gallstone pancreatitis Narrative/Plan: General surgery on consultation for gallstone pancreatitis Current Visit: Yes Status: Acute Code(s): K85.10 - BILIARY ACUTE PANCREATITIS WITHOUT NECROSIS OR INFECTION SNOMED Code(s): 01739114 (3) Hyperbilirubinemia Current Visit: Yes Status: Acute Code(s): E80.6 - OTHER DISORDERS OF BILIRUBIN METABOLISM SNOMED Code(s): 32188915 (4) Hx of deep venous thrombosis Current Visit: Yes Status: Acute Code(s): Z86.718 - PERSONAL HISTORY OF OTHER VENOUS THROMBOSIS AND EMBOLISM SNOMED Code(s): 880612858 (5) History of rsuzc-rytbz-lrhkdgn bypass Current Visit: No Status: Chronic Code(s): Z95.828 - PRESENCE OF OTHER VASCULAR IMPLANTS AND GRAFTS SNOMED Code(s): 125184774 (6) A-fib Current Visit: No Status: Acute Code(s): I48.91 - UNSPECIFIED ATRIAL FIBRILLATION SNOMED Code(s): 02667008 Plan: 1. Continue symptomatic and supportive care 2. Continue to hold Coumadin 3. Give vitamin K 5 mg p.o. 4. Daily CBC, CMP, lipase and INR 5. Patient may have clear liquid diet 6. Aggressive IV hydration 7. Pain medication as needed 8. Antiemetics as needed 9. Will continue to follow patient closely, patient likely will need to undergo ERCP once pancreatitis improved as well as INR 10. General Surgery on consultation Thank you for this consultation, we will continue to follow along. Dr. Debbie Ontiveros I agree with the dictator's note, documented as a scribe by Brittany Booker.
--- NOTE | 2024-07-16 13:11 | P.HPIM ---
History of Present Illness H&P Date: 07/16/24 History of present illness; 73-year-old man presented to the emergency department with complaints of weakness. According to the patients he had an earlier episode where he was confused, which had occurred prior to arrival. He notes having a past medical history of atrial fibrillation on blood thinners, abdominal aortic bypass surgery, hypertension, hyperlipidemia. He has been complaining of somewhat worsening upper back pain localized to the level of the kidneys, as well as stating a positive report of hematuria. He denies any chest pain, shortness of breath or abdominal pain. He does state he had one episode of nausea with nonbilious nonbloody emesis, but has not had anything since. Patient has no complaints, other than that, at this time. On arrival patients blood pressure was 113/53, HR 143, RR 20 and O2 saturation of 94% on room air; current BP 11/57, HR 89, RR 20, O2 saturation of 96% on room air. Patient has been receiving cefepime and vancomycin in the emergency department and has been made NPO after midninght. Additionally blood cultures have been ordered. Patient states he began feeling this discomfort yesterday afternoon without any precipitating factors, stating he had not had anything to drink prior to the pain occurring. Patient endorses being a regular smoker of one half to three- quarter pack cigarettes daily for the past 3 years, stating that prior to that h e had quit for a couple of years. Additionally, patient endorses drinking "a few" beers on a daily basis. He states that he has been following up with Dr. Ontiveros regularly as an outpatient due to previous episodes of abdominal pain, however different from the one he is currently having today. CT of the abdomen/pelvis and gallbladder ultrasound indicated a possible 7 mm calculus in the common bile duct at the pancreatic head and some pancreatic inflammation suggestive for pancreatitis. GI and cardiology have been consulted. Initial lab work done in the ER showed WBCs 14.5, Hgb 15, Hct 47.0, MCV 108.7, PLT 194, PT 29.5, INR 3.0, PTT 36.7, Na 135, BUN12, Cr 0.90, Bilirubin 4.4, AST 72, ALT 106, Alkaline Phosphotase 266, Lipase 6,189. UA showed 1+ protein anbd 2+ Bilirubin. EKG done in the ER showed heart rate of 148, A fib w/RVR, Right axis deviation, Low voltage QRS, Moderate ST depression Chest x-ray done in the ER showed no actue pulmonary process CT brain done showed no acute intracranial process, with minimal chronic appearing periventricular white matter ischemic-type changes CT Abdomen/Pelvis showed no suspicious renal or ureteral stones. Notes perinephric stranding bilaterally. Gallbladder US showed cholelithiasis without US evidence for acute cholecystitis, dilated common bile duct - possible 7 mm calculous in the common bile duct at the pancreatic head on CT (retrospectively), additionally there appears to be pancreatic inflammatory changes suggestive of pancreatitis (retrospectively); and hepatomegaly noted. Patient admitted to internal medicine service REVIEW OF SYSTEMS: CONSTITUTIONAL: No fever, no malaise, no fatigue. HEENT: No recent visual problems or hearing problems. Denied any sore throat. CARDIOVASCULAR: No chest pain, orthopnea, PND, no palpitations, no syncope. PULMONARY: No shortness of breath, no cough, no hemoptysis. GASTROINTESTINAL: Endorses vomiting twice at home, prior to arrival at the emergency department. NEUROLOGICAL: No headaches, no weakness, no numbness. HEMATOLOGICAL: Denies any bleeding or petechiae. GENITOURINARY: Denies any burning micturition, frequency, or urgency. MUSCULOSKELETAL/RHEUMATOLOGICAL: Denies any joint pain, swelling, or any muscle pain. ENDOCRINE: Denies any polyuria or polydipsia. The rest of the 14-point review of systems is negative. PHYSICAL EXAMINATION: GENERAL: The patient is alert and oriented x3, in some distress. Well developed, well nourished. HEENT: Pupils are round and equally reacting to light. EOMI. No scleral icterus. No conjunctival pallor. Normocephalic, atraumatic. No pharyngeal erythema. No thyromegaly. CARDIOVASCULAR: S1 and S2 present. No murmurs, rubs, or gallops. PULMONARY: Chest is clear to auscultation, no wheezing or crackles. ABDOMEN: Some tenderness to palpation, mainly in the epigastric area. Abdominal distention noted. No palpable organomegaly. MUSCULOSKELETAL: No joint swelling or deformity. EXTREMITIES: No cyanosis, clubbing, or pedal edema. NEUROLOGICAL: Gross neurological examination did not reveal any focal deficits. SKIN: No rashes. Assessment and plan # Possible cholangitis or gallstone pancreatitis secondary to obstruction of the common bile duct 7 mm calculus from the common bile duct at the pancreatic head on CT abdomen/pelvis GI and general surgery on board Per GIs request patient n.p.o. after midnight, possibly planning MRCP/ERCP tomorrow General Surgery consulted for potential cholecystectomy; potentially following removal of the 7 mm calculus found, bile duct # Sepsis secondary to obstruction of the common bile duct Per the emergency department blood cultures ordered Elevated WBCs, tachycardia indicate > 2 score on the SIRS criteria # Hyperbilirubinemia secondary to obstruction of the common bile duct 7 mm calculus from the common bile duct at the pancreatic head on CT abdomen/pelvis GI and general surgery on board Per GIs request patient n.p.o. after midnight, possibly planning MRCP/ERCP safia orrow General Surgery consulted for potential cholecystectomy; potentially following removal of the 7 mm calculus found, bile duct # Atrial Fibrillation w/RVR Patient has history of A-fib on blood thinner; currently being held per GI's request Continue to monitor vital signs, monitor CBC, monitor CMP, continue telemetry monitoring Labs and medication were reviewed. Continue with symptomatic treatment. Resume home medication. DVT and GI prophylaxis. Dictation was produced using [employer] dictation software. please excuse any grammatical, word or spelling errors. Past Medical History Past Medical History: Coronary Artery Disease (CAD), Deep Vein Thrombosis (DVT), Hyperlipidemia, Hypertension, Musculoskeletal Disorder, Vascular Disorder Additional Past Medical History / Comment(s): BACK PAIN dvt 5-6 yrs ago History of Any Multi-Drug Resistant Organisms: None Reported Additional Past Surgical History / Comment(s): THUMB SURGERY RIGHT HAND, aorto bi-femoral bypass may 2018 with left lower leg fasciotomy throbectomy rt leg Past Anesthesia/Blood Transfusion Reactions: No Reported Reaction Past Psychological History: No Psychological Hx Reported Smoking Status: Current some day smoker Past Alcohol Use History: Occasional Past Drug Use History: None Reported - Past Family History Father Family Medical History: No Reported History Mother Family Medical History: Cancer Medications and Allergies Home Medications Medication Instructions Recorded Confirmed Type Gabapentin 600 mg PO BID 06/06/18 07/15/24 History Warfarin [Coumadin] 5 mg PO HS 12/03/18 07/15/24 History Folic Acid 1 mg PO DAILY 01/14/24 07/15/24 History Furosemide [Lasix] 20 mg PO DAILY 01/14/24 07/15/24 History Metoprolol Tartrate 25 mg PO BID 01/14/24 07/15/24 History Rosuvastatin [Crestor] 20 mg PO HS 01/14/24 07/15/24 History Hyoscyamine Sulfate [Levsin-Sl] 0.125 mg SL Q4H PRN 07/15/24 07/15/24 History Omeprazole 40 mg PO BID 07/15/24 07/15/24 History Potassium Chloride ER [K-Dur 20] 20 meq PO BID 07/15/24 07/15/24 History Allergies Allergy/AdvReac Type Severity Reaction Status Date / Time No Known Allergies Allergy Verified 07/15/24 16:32 Physical Exam Vitals: Vital Signs Temp Pulse Resp BP Pulse Ox 07/16/24 05:58 89 20 111/57 96 07/16/24 03:37 94 20 113/77 95 07/16/24 01:30 79 16 104/54 94 L 07/16/24 01:00 87 17 97/60 94 L 07/16/24 00:30 84 18 105/57 95 07/16/24 00:15 84 16 109/72 94 L 07/15/24 23:45 98.0 F 94 14 160/61 93 L 07/15/24 23:30 93 17 104/61 93 L 07/15/24 23:15 92 19 96/56 92 L 07/15/24 23:00 105 H 18 92/56 91 L 07/15/24 22:45 95 17 95/72 94 L 07/15/24 22:30 99 17 83/47 93 L 07/15/24 22:15 90 17 90/55 93 L 07/15/24 22:00 98 13 104/59 94 L 07/15/24 21:45 99 18 103/71 94 L 07/15/24 21:30 106 H 21 85/48 92 L 07/15/24 21:15 104 H 17 94/53 93 L 07/15/24 20:45 101 H 19 93/62 93 L 07/15/24 20:30 107 H 19 93/62 93 L 07/15/24 20:15 118 H 19 100/74 92 L 07/15/24 20:10 111 H 18 86/55 92 L 07/15/24 20:05 118 H 22 86/55 92 L 07/15/24 20:00 104 H 23 101/22 93 L 07/15/24 19:55 22 101/22 94 L 07/15/24 19:50 107 H 17 07/15/24 19:45 129 H 21 97/68 92 L 07/15/24 19:30 98.7 F 114 H 19 104/62 92 L 07/15/24 18:45 17 102/66 93 L 07/15/24 18:30 118 H 15 99/69 91 L 07/15/24 18:22 102.8 F H 07/15/24 18:15 114 H 23 94/58 95 07/15/24 18:00 122 H 19 94/58 91 L 07/15/24 17:45 142 H 26 H 113/65 93 L 07/15/24 17:30 133 H 25 H 105/71 91 L 07/15/24 16:40 99.7 F H 147 H 19 98/72 97 07/15/24 16:28 99.7 F H 145 H 20 113/53 94 L Intake and Output 07/15/24 07/16/24 07/16/24 22:59 06:59 14:59 Intake Total 1000 Output Total 700 975 Balance -700 25 Intake: Intake, IV Titration 1000 Amount Sodium Chloride 0.9% 1, 1000 000 ml @ 130 mls/hr IV . Q7H42M STA Rx#:[id number] Output: Urine 700 975 Uretheral (Urrutia) 700 Other: Weight 111.584 kg Results CBC & Chem 7: 07/16/24 09:09 07/16/24 09:09 Labs: Abnormal Lab Results - Last 24 Hours (Table) 07/15/24 07/15/24 07/15/24 Range/Units 16:34 17:00 17:00 WBC 14.5 H (3.8-10.6) k/uL MCV 108.7 H (80.0-100.0) fL RDW 15.9 H (11.5-15.5) % Neutrophils # 12.7 H (1.3-7.7) k/uL Lymphocytes # 0.7 L (1.0-4.8) k/uL Macrocytosis Marked A PT 29.5 H (10.0-12.5) sec INR 3.0 H (<1.2) APTT 36.7 H (22.0-30.0) sec Sodium (137-145) mmol/L Glucose (74-99) mg/dL POC Glucose (mg/dL) 113 H (70-110) mg/dL Total Bilirubin (0.2-1.3) mg/dL Conjugated Bilirubin (0.0-0.3) mg/dL Delta Bilirubin (0.0-0.2) mg/dL AST (17-59) U/L ALT (4-49) U/L Alkaline Phosphatase (38-126) U/L Lipase (23-300) U/L Urine Protein (Negative) Urine Bilirubin (Negative) Urine Opiates Screen (NotDetected) 07/15/24 07/15/24 07/15/24 Range/Units 17:00 17:00 17:00 WBC (3.8-10.6) k/uL MCV (80.0-100.0) fL RDW (11.5-15.5) % Neutrophils # (1.3-7.7) k/uL Lymphocytes # (1.0-4.8) k/uL Macrocytosis PT (10.0-12.5) sec INR (<1.2) APTT (22.0-30.0) sec Sodium 135 L (137-145) mmol/L Glucose 124 H (74-99) mg/dL POC Glucose (mg/dL) (70-110) mg/dL Total Bilirubin 4.5 H 4.4 H (0.2-1.3) mg/dL Conjugated Bilirubin 1.7 H (0.0-0.3) mg/dL Delta Bilirubin 1.7 H (0.0-0.2) mg/dL AST 72 H (17-59) U/L ALT 106 H (4-49) U/L Alkaline Phosphatase 266 H (38-126) U/L Lipase 6189 H (23-300) U/L Urine Protein (Negative) Urine Bilirubin (Negative) Urine Opiates Screen (NotDetected) 07/15/24 07/15/24 Range/Units 20:40 20:40 WBC (3.8-10.6) k/uL MCV (80.0-100.0) fL RDW (11.5-15.5) % Neutrophils # (1.3-7.7) k/uL Lymphocytes # (1.0-4.8) k/uL Macrocytosis PT (10.0-12.5) sec INR (<1.2) APTT (22.0-30.0) sec Sodium (137-145) mmol/L Glucose (74-99) mg/dL POC Glucose (mg/dL) (70-110) mg/dL Total Bilirubin (0.2-1.3) mg/dL Conjugated Bilirubin (0.0-0.3) mg/dL Delta Bilirubin (0.0-0.2) mg/dL AST (17-59) U/L ALT (4-49) U/L Alkaline Phosphatase (38-126) U/L Lipase (23-300) U/L Urine Protein 1+ H (Negative) Urine Bilirubin 2+ H (Negative) Urine Opiates Screen Detected H (NotDetected)
[2024-07-16] MEDS: SODIUM CHLORIDE 0.9% 1,000 ML IV SCH (13:31)
--- NOTE | 2024-07-16 15:03 | P.GSCN ---
History of Present Illness Consult date: 07/16/24 History of present illness: CHIEF COMPLAINT: Abdominal pain HISTORY OF PRESENT ILLNESS: This is a 73-year-old male who presented with right upper quadrant abdominal pain. Patient reports that he has had intermittent episodes of pain over the last year. Yesterday the pain worsened. He had nausea and vomiting. Also had chills and altered mental status. He was brought into the ER for further evaluation. He was found to have gallstone pancreatitis. Ultrasound had reported gallstones with thickened gallbladder and stones in the common bile duct. Patient had elevated LFTs and total bilirubin. Patient seen by GI service and they are evaluating for ERCP once his INR is down and the pancreatitis has improved. Patient's LFTs are trending down his pain is improved. He he possibly passed a gallstone. Patient does have a history of daily alcohol use. He is on Coumadin for DVT and A-fib. On admission he has had fever mild tachycardia and elevated white count. PAST MEDICAL HISTORY: Coronary Artery Disease (CAD), Deep Vein Thrombosis (DVT), Hyperlipidemia, Hypertension, Musculoskeletal Disorder, Vascular Disorder, BACK PAIN dvt 5-6 yrs ago PAST SURGICAL HISTORY: aorto bi-femoral bypass may 2018 with left lower leg fasciotomy throbectomy rt leg, patient is also had skin graft from the left side of his abdomen to his thumb several years ago MEDICATIONS: See below ALLERGIES: See below SOCIAL HISTORY: No illicit drug use. Drinks 3 shots of john daily REVIEW OF SYSTEMS: CONSTITUTIONAL: Denies fever or chills. HEENT: Denies blurred vision, vision changes, or eye pain. Denies hemoptysis CARDIOVASCULAR: Denies chest pain or pressure. RESPIRATORY: No shortness of breath. GASTROINTESTINAL: See HPI for pertinent findings HEMATOLOGIC: Denies bleeding disorders. GENITOURINARY: Denies any blood in urine or increased urinary frequency. SKIN: Denies pruitis. Denies rash. PHYSICAL EXAM: VITAL SIGNS: Reviewed GENERAL: Well-developed in no acute distress. HEENT: No sclera icterus. Extraocular movements grossly intact. Moist buccal mucosa. Head is atraumatic, normocephalic. No nasal drainage. ABDOMEN: Soft. Nondistended. Nontender NEUROLOGIC: Alert and oriented. Cranial nerves II through XII grossly intact. LABORATORY DATA: WBC 14.5 down to 8.3 Hgb 12.2 platelets 166 INR 3.0 down to 2.6 Sodium 138 potassium 4.1 creatinine 0.71 Total bilirubin 4.4 down to 4.0 AST 72 down to 47 ALT 106 down to 70 alk phos 266 down to 193 Lipase 6189 Opiates detected in urine Alcohol less than 10 IMAGING: Gallbladder ultrasound reports cholelithiasis without ultrasound evidence of acute cholecystitis. Dilated common bile duct. There appears to be a possible 7 mm calculus in the common bile duct at the pancreatic head on CT. There appears to be pancreatic inflammation changes suggestive of pancreatitis ASSESSMENT: 1. Gallstone pancreatitis 2. Choledocholithiasis. LFTs and trending downwards. Patient probably passed the stone 3. Cholecystitis 4. Daily alcohol use 5. History of DVT and A-fib on Coumadin PLAN: -Recommend outpatient laparoscopic cholecystectomy -GI service following for ERCP -Agree with clear liquid diet -Repeat labs in a.m. -Continue antibiotics Physician Ap Operator note has been reviewed by physician. Signing provider agrees with the documented findings, assessment, and plan of care. Past Medical History Past Medical History: Coronary Artery Disease (CAD), Deep Vein Thrombosis (DVT), Hyperlipidemia, Hypertension, Musculoskeletal Disorder, Vascular Disorder Additional Past Medical History / Comment(s): BACK PAIN dvt 5-6 yrs ago History of Any Multi-Drug Resistant Organisms: None Reported Additional Past Surgical History / Comment(s): THUMB SURGERY RIGHT HAND, aorto b i-femoral bypass may 2018 with left lower leg fasciotomy throbectomy rt leg Past Anesthesia/Blood Transfusion Reactions: No Reported Reaction Past Psychological History: No Psychological Hx Reported Smoking Status: Current some day smoker Past Alcohol Use History: Occasional Past Drug Use History: None Reported - Past Family History Father Family Medical History: No Reported History Mother Family Medical History: Cancer Medications and Allergies Home Medications Medication Instructions Recorded Confirmed Type Gabapentin 600 mg PO BID 06/06/18 07/15/24 History Warfarin [Coumadin] 5 mg PO HS 12/03/18 07/15/24 History Folic Acid 1 mg PO DAILY 01/14/24 07/15/24 History Furosemide [Lasix] 20 mg PO DAILY 01/14/24 07/15/24 History Metoprolol Tartrate 25 mg PO BID 01/14/24 07/15/24 History Rosuvastatin [Crestor] 20 mg PO HS 01/14/24 07/15/24 History Hyoscyamine Sulfate [Levsin-Sl] 0.125 mg SL Q4H PRN 07/15/24 07/15/24 History Omeprazole 40 mg PO BID 07/15/24 07/15/24 History Potassium Chloride ER [K-Dur 20] 20 meq PO BID 07/15/24 07/15/24 History Allergies Allergy/AdvReac Type Severity Reaction Status Date / Time No Known Allergies Allergy Verified 07/15/24 16:32 Surgical - Exam Vital Signs Temp Pulse Resp BP Pulse Ox 99.7 F H 145 H 20 113/53 94 L 07/15/24 16:28 07/15/24 16:28 07/15/24 16:28 07/15/24 16:28 07/15/24 16:28 Results - Labs 07/16/24 09:09 07/16/24 09:09 Abnormal Lab Results - Last 24 Hours (Table) 07/15/24 07/15/24 07/15/24 Range/Units 16:34 17:00 17:00 WBC 14.5 H (3.8-10.6) k/uL RBC (4.30-5.90) m/uL Hgb (13.0-17.5) gm/dL MCV 108.7 H (80.0-100.0) fL MCHC (31.0-37.0) g/dL RDW 15.9 H (11.5-15.5) % Neutrophils # 12.7 H (1.3-7.7) k/uL Lymphocytes # 0.7 L (1.0-4.8) k/uL Macrocytosis Marked A PT 29.5 H (10.0-12.5) sec INR 3.0 H (<1.2) APTT 36.7 H (22.0-30.0) sec Sodium (137-145) mmol/L Chloride (98-107) mmol/L Glucose (74-99) mg/dL POC Glucose (mg/dL) 113 H (70-110) mg/dL Calcium (8.4-10.2) mg/dL Total Bilirubin (0.2-1.3) mg/dL Conjugated Bilirubin (0.0-0.3) mg/dL Delta Bilirubin (0.0-0.2) mg/dL AST (17-59) U/L ALT (4-49) U/L Alkaline Phosphatase (38-126) U/L Total Protein (6.3-8.2) g/dL Albumin (3.5-5.0) g/dL Lipase (23-300) U/L Urine Protein (Negative) Urine Bilirubin (Negative) Urine Opiates Screen (NotDetected) 07/15/24 07/15/24 07/15/24 Range/Units 17:00 17:00 17:00 WBC (3.8-10.6) k/uL RBC (4.30-5.90) m/uL Hgb (13.0-17.5) gm/dL MCV (80.0-100.0) fL MCHC (31.0-37.0) g/dL RDW (11.5-15.5) % Neutrophils # (1.3-7.7) k/uL Lymphocytes # (1.0-4.8) k/uL Macrocytosis PT (10.0-12.5) sec INR (<1.2) APTT (22.0-30.0) sec Sodium 135 L (137-145) mmol/L Chloride (98-107) mmol/L Glucose 124 H (74-99) mg/dL POC Glucose (mg/dL) (70-110) mg/dL Calcium (8.4-10.2) mg/dL Total Bilirubin 4.5 H 4.4 H (0.2-1.3) mg/dL Conjugated Bilirubin 1.7 H (0.0-0.3) mg/dL Delta Bilirubin 1.7 H (0.0-0.2) mg/dL AST 72 H (17-59) U/L ALT 106 H (4-49) U/L Alkaline Phosphatase 266 H (38-126) U/L Total Protein (6.3-8.2) g/dL Albumin (3.5-5.0) g/dL Lipase 6189 H (23-300) U/L Urine Protein (Negative) Urine Bilirubin (Negative) Urine Opiates Screen (NotDetected) 07/15/24 07/15/24 07/16/24 Range/Units 20:40 20:40 09:09 WBC (3.8-10.6) k/uL RBC 3.57 L (4.30-5.90) m/uL Hgb 12.2 L (13.0-17.5) gm/dL MCV 111.6 H (80.0-100.0) fL MCHC 30.7 L (31.0-37.0) g/dL RDW (11.5-15.5) % Neutrophils # (1.3-7.7) k/uL Lymphocytes # (1.0-4.8) k/uL Macrocytosis Marked A PT (10.0-12.5) sec INR (<1.2) APTT (22.0-30.0) sec Sodium (137-145) mmol/L Chloride (98-107) mmol/L Glucose (74-99) mg/dL POC Glucose (mg/dL) (70-110) mg/dL Calcium (8.4-10.2) mg/dL Total Bilirubin (0.2-1.3) mg/dL Conjugated Bilirubin (0.0-0.3) mg/dL Delta Bilirubin (0.0-0.2) mg/dL AST (17-59) U/L ALT (4-49) U/L Alkaline Phosphatase (38-126) U/L Total Protein (6.3-8.2) g/dL Albumin (3.5-5.0) g/dL Lipase (23-300) U/L Urine Protein 1+ H (Negative) Urine Bilirubin 2+ H (Negative) Urine Opiates Screen Detected H (NotDetected) 07/16/24 07/16/24 Range/Units 09:09 09:09 WBC (3.8-10.6) k/uL RBC (4.30-5.90) m/uL Hgb (13.0-17.5) gm/dL MCV (80.0-100.0) fL MCHC (31.0-37.0) g/dL RDW (11.5-15.5) % Neutrophils # (1.3-7.7) k/uL Lymphocytes # (1.0-4.8) k/uL Macrocytosis PT 25.3 H (10.0-12.5) sec INR 2.6 H (<1.2) APTT (22.0-30.0) sec Sodium (137-145) mmol/L Chloride 110 H (98-107) mmol/L Glucose (74-99) mg/dL POC Glucose (mg/dL) (70-110) mg/dL Calcium 8.3 L (8.4-10.2) mg/dL Total Bilirubin 4.0 H (0.2-1.3) mg/dL Conjugated Bilirubin (0.0-0.3) mg/dL Delta Bilirubin (0.0-0.2) mg/dL AST (17-59) U/L ALT 70 H (4-49) U/L Alkaline Phosphatase 193 H (38-126) U/L Total Protein 5.9 L (6.3-8.2) g/dL Albumin 3.1 L (3.5-5.0) g/dL Lipase (23-300) U/L Urine Protein (Negative) Urine Bilirubin (Negative) Urine Opiates Screen (NotDetected) Diabetes panel 07/15/24 07/16/24 Range/Units 17:00 09:09 Sodium 135 L 138 (137-145) mmol/L Potassium 4.5 4.1 (3.5-5.1) mmol/L Chloride 100 110 H (98-107) mmol/L Carbon Dioxide 26 24 (22-30) mmol/L BUN 12 11 (9-20) mg/dL Creatinine 0.90 0.71 (0.66-1.25) mg/dL Glucose 124 H 86 (74-99) mg/dL Calcium 9.3 8.3 L (8.4-10.2) mg/dL AST 72 H 47 (17-59) U/L ALT 106 H 70 H (4-49) U/L Alkaline Phosphatase 266 H 193 H (38-126) U/L Total Protein 7.7 5.9 L (6.3-8.2) g/dL Albumin 4.3 3.1 L (3.5-5.0) g/dL Calcium panel 07/15/24 07/16/24 Range/Units 17:00 09:09 Calcium 9.3 8.3 L (8.4-10.2) mg/dL Albumin 4.3 3.1 L (3.5-5.0) g/dL Pituitary panel 07/15/24 07/16/24 Range/Units 17:00 09:09 Sodium 135 L 138 (137-145) mmol/L Potassium 4.5 4.1 (3.5-5.1) mmol/L Chloride 100 110 H (98-107) mmol/L Carbon Dioxide 26 24 (22-30) mmol/L BUN 12 11 (9-20) mg/dL Creatinine 0.90 0.71 (0.66-1.25) mg/dL Glucose 124 H 86 (74-99) mg/dL Calcium 9.3 8.3 L (8.4-10.2) mg/dL Adrenal panel 07/15/24 07/15/24 07/16/24 Range/Units 17:00 17:00 09:09 Sodium 135 L 138 (137-145) mmol/L Potassium 4.5 4.1 (3.5-5.1) mmol/L Chloride 100 110 H (98-107) mmol/L Carbon Dioxide 26 24 (22-30) mmol/L BUN 12 11 (9-20) mg/dL Creatinine 0.90 0.71 (0.66-1.25) mg/dL Glucose 124 H 86 (74-99) mg/dL Calcium 9.3 8.3 L (8.4-10.2) mg/dL Total Bilirubin 4.5 H 4.4 H 4.0 H (0.2-1.3) mg/dL AST 72 H 47 (17-59) U/L ALT 106 H 70 H (4-49) U/L Alkaline Phosphatase 266 H 193 H (38-126) U/L Total Protein 7.7 5.9 L (6.3-8.2) g/dL Albumin 4.3 3.1 L (3.5-5.0) g/dL
[2024-07-16] MEDS: PIPERACILLIN-TAZOBACTAM 3.375 GM in SODIUM CHLORIDE 0.9% 100 ML IVPB SCH (16:31)
--- NOTE | 2024-07-16 17:28 | P.CRDCN ---
History of Present Illness Consult date: 07/16/24 Consult reason: chest pain History of present illness: This is a 73-year-old male patient with past medical history of hypertension, hyperlipidemia, atrial fibrillation, DVT, history of peripheral vascular disease with aorto by femoral surgery. Patient states he presented to the hospital due to abdominal pain in the mid area along with nausea and vomiting. He states that he has had issues with this for the past year but worsening. He states he had a little shortness of breath. He denies having any chest pain, no palpitations, no lightheadedness or dizziness. 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 He was last in the office with Dr. Sweet in 2018. Blood pressure 113/67, heart rate 104, pulse ox 93% on room air. EKG: Atrial fibrillation at 148 bpm Chest x-ray: No acute process. COPD CT of the brain no acute process CT abdomen pelvis without contrast. No suspicious renal or ureteral stones. Perinephric stranding bilateral correlate for pyelonephritis. Gallbladder ultrasound cholelithiasis without acute cholecystitis. Dilated common bile duct with possible calculus in the common bile duct hepatomegaly. Laboratory studies: WBC initially 14.5 repeat 8.3, hemoglobin 12.2. INR initially 3 now 2.6 today. Creatinine 0.71, potassium 4.1. Liver enzymes are e levated. Troponin negative x 1. proBNP 1940. Lipase 6189. Urine drug screen positive for opiates. Alcohol less than 10. Influenza A, influenza B, RSV, COVID-19 not detected. Home cardiac medications: Lasix 20 mg daily, metoprolol tartrate 25 mg twice daily, potassium chloride 20 mill equivalents twice daily, Crestor 20 mg at bedtime, warfarin 5 mg at at bedtime. Review Of Systems: At the time of my exam: CONSTITUTIONAL: Denies fever or chills. HEENT: Denies blurred vision, vision changes, or eye pain. Denies hemoptysis CARDIOVASCULAR: Denies chest pain. Denies orthopnea. Denies PND. Denies palpitations RESPIRATORY: Denies shortness of breath. GASTROINTESTINAL: Reports abdominal pain. Denies nausea or vomiting. HEMATOLOGIC: Denies bleeding disorders. GENITOURINARY: Denies any blood in urine. SKIN: Denies puritis. Denies rash. Physical examination: Gen: This is a obese 73-year-old male in no acute distress VS: reviewed HEENT: Head is atraumatic, normocephalic. Pupils equal, round. Sclerae is anicteric. NECK: Supple. No JVD. LUNGS: Clear to auscultation. No wheezes or rhonchi. No intercostal retractions. HEART: Irregular rate and rhythm. No murmur. Tachycardic ABDOMEN: Abdominal distention and abdominal tenderness right upper quadrant. EXTREMITIES: No pedal edema. No calf tenderness. NEUROLOGICAL: Patient is awake, alert and oriented x3. Assessment: No complaints of chest pain Gallstone pancreatitis Choledocholithiasis Cholecystitis Daily alcohol use Chronic atrial fibrillation on Coumadin presenting with RVR now moderately rate controlled History of DVT Plan: Resume patient's home cardiac medications Coumadin on hold and status post vitamin K 5 mg Patient to be resumed on Coumadin once cleared by general surgery and GI services No further cardiac workup at this time Cardiology will sign off this case and follow on an as-needed basis. Please reconsult for any new concerns. Patient may follow-up in the office in one to 2 weeks following discharge. Thank you kindly for this consultation. Nurse practitioner note has been reviewed, I agree with documented findings and plan of care. Patient was seen and examined. Past Medical History Past Medical History: Coronary Artery Disease (CAD), Deep Vein Thrombosis (DVT), Hyperlipidemia, Hypertension, Musculoskeletal Disorder, Vascular Disorder Additional Past Medical History / Comment(s): BACK PAIN dvt 5-6 yrs ago History of Any Multi-Drug Resistant Organisms: None Reported Additional Past Surgical History / Comment(s): THUMB SURGERY RIGHT HAND, aorto bi-femoral bypass may 2018 with left lower leg fasciotomy throbectomy rt leg Past Anesthesia/Blood Transfusion Reactions: No Reported Reaction Past Psychological History: No Psychological Hx Reported Smoking Status: Current some day smoker Past Alcohol Use History: Occasional Past Drug Use History: None Reported - Past Family History Father Family Medical History: No Reported History Mother Family Medical History: Cancer Medications and Allergies Home Medications Medication Instructions Recorded Confirmed Type Gabapentin 600 mg PO BID 06/06/18 07/15/24 History Warfarin [Coumadin] 5 mg PO HS 12/03/18 07/15/24 History Folic Acid 1 mg PO DAILY 01/14/24 07/15/24 History Furosemide [Lasix] 20 mg PO DAILY 01/14/24 07/15/24 History Metoprolol Tartrate 25 mg PO BID 01/14/24 07/15/24 History Rosuvastatin [Crestor] 20 mg PO HS 01/14/24 07/15/24 History Hyoscyamine Sulfate [Levsin-Sl] 0.125 mg SL Q4H PRN 07/15/24 07/15/24 History Omeprazole 40 mg PO BID 07/15/24 07/15/24 History Potassium Chloride ER [K-Dur 20] 20 meq PO BID 07/15/24 07/15/24 History Allergies Allergy/AdvReac Type Severity Reaction Status Date / Time No Known Allergies Allergy Verified 07/15/24 16:32 Physical Exam Vitals: Vital Signs Temp Pulse Resp BP Pulse Ox 07/16/24 08:13 104 H 18 108/67 93 L 07/16/24 05:58 89 20 111/57 96 07/16/24 03:37 94 20 113/77 95 07/16/24 01:30 79 16 104/54 94 L 07/16/24 01:00 87 17 97/60 94 L 07/16/24 00:30 84 18 105/57 95 07/16/24 00:15 84 16 109/72 94 L 07/15/24 23:45 98.0 F 94 14 160/61 93 L 07/15/24 23:30 93 17 104/61 93 L 07/15/24 23:15 92 19 96/56 92 L 07/15/24 23:00 105 H 18 92/56 91 L 07/15/24 22:45 95 17 95/72 94 L 07/15/24 22:30 99 17 83/47 93 L 07/15/24 22:15 90 17 90/55 93 L 07/15/24 22:00 98 13 104/59 94 L 07/15/24 21:45 99 18 103/71 94 L 07/15/24 21:30 106 H 21 85/48 92 L 07/15/24 21:15 104 H 17 94/53 93 L 07/15/24 20:45 101 H 19 93/62 93 L 07/15/24 20:30 107 H 19 93/62 93 L 07/15/24 20:15 118 H 19 100/74 92 L 07/15/24 20:10 111 H 18 86/55 92 L 07/15/24 20:05 118 H 22 86/55 92 L 07/15/24 20:00 104 H 23 101/22 93 L 07/15/24 19:55 22 101/22 94 L 07/15/24 19:50 107 H 17 07/15/24 19:45 129 H 21 97/68 92 L 07/15/24 19:30 98.7 F 114 H 19 104/62 92 L 07/15/24 18:45 17 102/66 93 L 07/15/24 18:30 118 H 15 99/69 91 L 07/15/24 18:22 102.8 F H 07/15/24 18:15 114 H 23 94/58 95 07/15/24 18:00 122 H 19 94/58 91 L 07/15/24 17:45 142 H 26 H 113/65 93 L 07/15/24 17:30 133 H 25 H 105/71 91 L 07/15/24 16:40 99.7 F H 147 H 19 98/72 97 07/15/24 16:28 99.7 F H 145 H 20 113/53 94 L Intake and Output 07/15/24 07/16/24 07/16/24 22:59 06:59 14:59 Intake Total 1000 Output Total 700 975 Balance -700 25 Intake: Intake, IV Titration 1000 Amount Sodium Chloride 0.9% 1, 1000 000 ml @ 130 mls/hr IV . Q7H42M STA Rx#:[id number] Output: Urine 700 975 Uretheral (Urrutia) 700 Other: Weight 111.584 kg Results 07/16/24 09:09 07/16/24 09:09 Cardiac Enzymes 07/15/24 07/15/24 Range/Units 17:00 17:00 AST 72 H (17-59) U/L Troponin I <0.012 (0.000-0.034) ng/mL Coagulation 07/15/24 Range/Units 17:00 PT 29.5 H (10.0-12.5) sec APTT 36.7 H (22.0-30.0) sec CBC 07/15/24 Range/Units 17:00 WBC 14.5 H (3.8-10.6) k/uL RBC 4.32 (4.30-5.90) m/uL Hgb 15.0 (13.0-17.5) gm/dL Hct 47.0 (39.0-53.0) % Plt Count 194 (150-450) k/uL Comprehensive Metabolic Panel 07/15/24 07/15/24 Range/Units 17:00 17:00 Sodium 135 L (137-145) mmol/L Potassium 4.5 (3.5-5.1) mmol/L Chloride 100 (98-107) mmol/L Carbon Dioxide 26 (22-30) mmol/L BUN 12 (9-20) mg/dL Creatinine 0.90 (0.66-1.25) mg/dL Glucose 124 H (74-99) mg/dL Calcium 9.3 (8.4-10.2) mg/dL Unconjugated Bilirubin 1.0 (0.0-1.1) mg/dL AST 72 H (17-59) U/L ALT 106 H (4-49) U/L Alkaline Phosphatase 266 H (38-126) U/L Total Protein 7.7 (6.3-8.2) g/dL Albumin 4.3 (3.5-5.0) g/dL Current Medications Generic Name Dose Route Start Last Admin Trade Name Freq PRN Reason Stop Dose Admin Acetaminophen 650 mg 07/15/24 20:56 Acetaminophen Tab 325 Mg Tab PO Q6HR PRN Mild Pain or Fever > 100.5 Furosemide 20 mg 07/16/24 09:00 07/16/24 08:43 Furosemide 20 Mg Tab PO 20 mg DAILY JOHANA Administration Vancomycin HCl 2,000 mg/ 500 mls @ 167 mls/hr 07/16/24 08:00 07/16/24 08:09 Sodium Chloride IVPB 167 mls/hr Q12H JOHANA Administration Piperacillin Sod/Tazobactam 100 mls @ 25 mls/hr 07/16/24 22:00 Sod 3.375 gm/ Sodium Chloride IVPB Q8HR JOHANA Protocol Metoprolol Tartrate 25 mg 07/16/24 09:00 07/16/24 08:44 Metoprolol Tartrate 25 Mg Tab PO 25 mg BID JOHANA Administration Naloxone HCl 0.2 mg 07/15/24 20:56 Naloxone 0.4 Mg/Ml 1 Ml Vial IV Q2M PRN Opioid Reversal Ondansetron HCl 4 mg 07/15/24 20:56 Ondansetron 4 Mg/2 Ml Vial IVP Q8HR PRN Nausea And Vomiting Pantoprazole Sodium 40 mg 07/16/24 09:00 07/16/24 08:43 Pantoprazole 40 Mg/10 Ml Vial IVP 40 mg DAILY JOHANA Administration Intake and Output 07/15/24 07/16/24 07/16/24 22:59 06:59 14:59 Intake Total 1000 Output Total 700 975 Balance -700 25 Intake: Intake, IV Titration 1000 Amount Sodium Chloride 0.9% 1, 1000 000 ml @ 130 mls/hr IV . Q7H42M STA Rx#:[id number] Output: Urine 700 975 Uretheral (Urrutia) 700 Other: Weight 111.584 kg 07/15/24 17:00 07/15/24 17:00
[2024-07-16] MEDS: ACETAMINOPHEN TAB 325 MG TAB PO PRN (19:16)
[2024-07-16] MEDS: ONDANSETRON 4 MG/2 ML VIAL IVP PRN (19:16)
[2024-07-16] MEDS: MORPHINE SULFATE 2 MG/ML SYRINGE IVP PRN (19:25)
[2024-07-16] MEDS ORDERED: ATORVASTATIN 40 MG TAB PO SCH (21:00)
[2024-07-16] MEDS: GABAPENTIN 300 MG CAP PO SCH (21:14)
[2024-07-16] MEDS: ATORVASTATIN 20 MG TAB PO SCH (21:14)
[2024-07-16] MEDS: POTASSIUM CHLORIDE ER 20 MEQ TAB.ER PO SCH (21:15)
[2024-07-16] MEDS ORDERED: PIPERACILLIN-TAZOBACTAM 3.375 GM in SODIUM CHLORIDE 0.9% 100 ML IVPB SCH (22:00)
[2024-07-17 07:12] LABS: INR 1.3 (<1.2); Prothrombin Time 13.2 sec (10.0-12.5)
[2024-07-17 07:18] LABS: ALT 61 U/L (4-49); AST 48 U/L (17-59); African American GFR (CKD) >90 (>60 ml/min/1.73 sqM); Albumin 3.2 g/dL (3.5-5.0); Alkaline Phosphatase 203 U/L (38-126); Anion Gap 7 mmol/L; Blood Urea Nitrogen 10 mg/dL (9-20); Calcium 8.9 mg/dL (8.4-10.2); Carbon Dioxide 25 mmol/L (22-30); Chloride 107 mmol/L (98-107); Glucose 67 mg/dL (74-99); Non-African American GFR(CKD) >90 (>60 ml/min/1.73 sqM); Potassium 4.2 mmol/L (3.5-5.1); Sodium 139 mmol/L (137-145); Total Protein 6.1 g/dL (6.3-8.2)
[2024-07-17 07:21] LABS: Anisocytosis Slight; HCT 38.4 % (39.0-53.0); HGB 12.2 gm/dL (13.0-17.5); Hypochromasia Moderate; MCH 35.4 pg (25.0-35.0); MCHC 31.8 g/dL (31.0-37.0); MCV 111.2 fL (80.0-100.0); Macrocytosis Marked; Mean Platelet Volume 8.3; Platelet Count 174 k/uL (150-450); RBC 3.45 m/uL (4.30-5.90); RDW 16.2 % (11.5-15.5); WBC 8.3 k/uL (3.8-10.6)
[2024-07-17 07:43] LABS: Lipase 2154 U/L (23-300)
--- NOTE | 2024-07-17 08:44 | P.PN ---
Subjective Progress Note Date: 07/17/24 Principal diagnosis: Suspected choledocholithiasis Pleasant 73-year-old female male who presented to the emergency department with complaints of abdominal pain mostly in the upper abdomen. States that onset was yesterday afternoon. But he has been having ongoing abdominal pain and has been seeing gastroenterology over the last 1 year duration. He states he has been on couple different medications and being treated for GERD. He states this pain is different was associated with nausea and vomiting. Currently rates it at a 9 out of 10, but states nausea and vomiting has subsided. He denied any fevers or chills. He did have leukocytosis on admission with elevated LFTs. Gastroenterology was consulted for elevated LFTs and hyperbilirubinemia. Past medical history includes coronary artery disease, Atrial fibrillation, DVT on anticoagulation, peripheral arterial disease status post stenting and GERD patient does take Coumadin last dose yesterday. Apparently when patient came in the had reported he had an episode of confusion earlier in the day and he did undergo a brain CT with no acute findings. He had a CT of the abdomen pelvis which reported no suspicious renal artery ureteral stones. Adonay nephrotic stranding bilaterally correlate for pyelonephritis. Patient was admitted and started on IV antibiotics. He also underwent a gallbladder ultrasound that reported CBD dilation and cholelithiasis with possible 7 mm calculus in the common bile duct. Admitting labs WBC 14.5 hemoglobin 15 hematocrit 47 platelet count 194,000 INR 3.0 sodium 135 potassium 4.5 BUN 9 creatinine 0.9 total bilirubin 4.4 AST 72 ALT 106 alkaline phosphatase 266 lipase 6189 07/17/2024 Patient seen and examined today as a follow-up. He states abdominal pain has improved. No nausea or vomiting. He has been afebrile. Leukocytosis improved. WBC 8.3 hemoglobin 12.2 platelet count 174,000 INR 1.3 total bilirubin 6.0 AST 48 ALT 61 alkaline phosphatase 203 lipase 2154 Objective - Vital Signs Vital signs: Vital Signs Temp 98.1 F 07/16/24 13:39 Pulse 81 07/17/24 04:00 Resp 20 07/17/24 04:00 BP 103/58 07/17/24 04:00 Pulse Ox 95 07/17/24 04:00 FiO2 Intake & Output 07/16/24 07/16/24 07/17/24 06:59 18:59 06:59 Intake Total 1000 Output Total 1675 2500 800 Balance -559 -2500 -800 Weight 111.584 kg Intake: Intake, IV Titration 1000 Amount Sodium Chloride 0.9% 1, 1000 000 ml @ 130 mls/hr IV . Q7H42M STA Rx#:[id number] Output: Urine 1670 2500 800 Uretheral (Urrutia) 700 - Exam General appearance: The patient is alert, oriented, appears in no acute distress. HET: Head is normocephalic and atraumatic. Conjunctiva pink. Sclera anicteric. Neck: Supple without lymphadenopathy. Abdomen: Soft, obese, right upper quadrant tenderness, nondistended. Extremities: Normal skin color and turgor. No pedal edema Skin: No rashes, no jaundice Neurological: No focal deficits. Alert and oriented. - Labs CBC & Chem 7: 07/17/24 06:11 07/17/24 06:11 Labs: Abnormal Lab Results - Last 24 Hours (Table) 07/16/24 07/16/24 07/16/24 Range/Units 09:09 09:09 09:09 RBC 3.57 L (4.30-5.90) m/uL Hgb 12.2 L (13.0-17.5) gm/dL MCV 111.6 H (80.0-100.0) fL MCHC 30.7 L (31.0-37.0) g/dL Macrocytosis Marked A PT 25.3 H (10.0-12.5) sec INR 2.6 H (<1.2) Chloride 110 H (98-107) mmol/L Calcium 8.3 L (8.4-10.2) mg/dL Total Bilirubin 4.0 H (0.2-1.3) mg/dL ALT 70 H (4-49) U/L Alkaline Phosphatase 193 H (38-126) U/L Total Protein 5.9 L (6.3-8.2) g/dL Albumin 3.1 L (3.5-5.0) g/dL Microbiology - Last 24 Hours (Table) 07/15/24 18:30 Blood Culture - Preliminary Blood Assessment and Plan (1) Elevated LFTs Narrative/Plan: 73-year-old male presenting with abdominal pain elevated LFTs and bilirubin in a cholestatic pattern as well as elevated lipase with ultrasound imaging with findings of dilated common bile duct and cholelithiasis. Patient admitted with gallstone pancreatitis likely secondary to choledocholithiasis. Patient also has leukocytosis, but afebrile. Unfortunately patient's INR is 3.0. Will plan to give vitamin K and repeat INR. Patient likely will need ERCP at some point once INR is stable Current Visit: Yes Status: Acute Code(s): R79.89 - OTHER SPECIFIED ABNORMAL FINDINGS OF BLOOD CHEMISTRY SNOMED Code(s): 989602409 (2) Gallstone pancreatitis Narrative/Plan: General surgery on consultation for gallstone pancreatitis Current Visit: Yes Status: Acute Code(s): K85.10 - BILIARY ACUTE PANCREATITIS WITHOUT NECROSIS OR INFECTION SNOMED Code(s): 10197725 (3) Hyperbilirubinemia Narrative/Plan: Hyperbilirubinemia remains elevated, likely secondary to choledocholithiasis. INR at 1.3 today and lipase 2154. Goal INR 1.1 or less to proceed with ERCP. Current Visit: Yes Status: Acute Code(s): E80.6 - OTHER DISORDERS OF BILIRUBIN METABOLISM SNOMED Code(s): 28916919 (4) Hx of deep venous thrombosis Current Visit: Yes Status: Acute Code(s): Z86.718 - PERSONAL HISTORY OF OTHER VENOUS THROMBOSIS AND EMBOLISM SNOMED Code(s): 209713111 (5) History of fkuam-actqz-nvhzuip bypass Current Visit: No Status: Chronic Code(s): Z95.828 - PRESENCE OF OTHER VASCULAR IMPLANTS AND GRAFTS SNOMED Code(s): 203489328 (6) A-fib Current Visit: No Status: Acute Code(s): I48.91 - UNSPECIFIED ATRIAL FIBRILLATION SNOMED Code(s): 02315078 Plan: 1. Continue symptomatic and supportive care 2. Continue to hold Coumadin 3. Daily CBC, CMP, lipase and INR 4. Patient may have low-fat diet 5. N.p.o. after midnight Saturday 6. Aggressive IV hydration 7. Pain medication as needed 8. Antiemetics as needed 9. Tentatively plan for ERCP on Saturday 10. General Surgery on consultation for cholelithiasis/gallstone pancreatitis Thank you for allowing us to participate in the care of the patient, the GI service will sign off, gastroenterology will not be available at the hospital this weekend. If further evaluation by gastroenterology is required the patient will need transfer as per the primary team's discretion. Dr. Debbie Ontiveros I agree with the dictator's note, documented as a scribe by Brittany Booker.
[2024-07-17] MEDS: FOLIC ACID 1 MG TAB PO SCH (08:58)
[2024-07-17] MEDS: FUROSEMIDE 20 MG TAB PO SCH (08:58)
--- NOTE | 2024-07-17 10:10 | XR ---
EXAMINATION TYPE: XR chest 1V DATE OF EXAM: 07/17/2024 HISTORY: Shortness of breath. COMPARISON: 07/15/2024 TECHNIQUE: Single view of the chest is submitted. FINDINGS: Demonstrated are scattered senescent parenchymal change. There is no evidence for focal infiltrate. The heart is stable. Hilar and mediastinal structures are within normal limits. Degenerative changes are seen of the dorsal spine. IMPRESSION: 1. Chronic changes without evidence for acute pulmonary disease.
[2024-07-17] MEDS: METOPROLOL TARTRATE 25 MG TAB PO STA (11:01)
[2024-07-17 11:05] VITALS: BP 126/98; PULSE 94; RESP 18
--- NOTE | 2024-07-17 12:28 | P.PN ---
Subjective Progress Note Date: 07/17/24 73-year-old man presented to the emergency department with complaints of weakness. According to the patients he had an earlier episode where he was confused, which had occurred prior to arrival. He notes having a past medical history of atrial fibrillation on blood thinners, abdominal aortic bypass ramirez rgery, hypertension, hyperlipidemia. He has been complaining of somewhat worsening upper back pain localized to the level of the kidneys, as well as stating a positive report of hematuria. He denies any chest pain, shortness of breath or abdominal pain. He does state he had one episode of nausea with nonbilious nonbloody emesis, but has not had anything since. Patient has no complaints, other than that, at this time. On arrival patients blood pressure was 113/53, HR 143, RR 20 and O2 saturation of 94% on room air; current BP 11/57, HR 89, RR 20, O2 saturation of 96% on room air. Patient has been receiving cefepime and vancomycin in the emergency department and has been made NPO after midninght. Additionally blood cultures have been ordered. Patient states he began feeling this discomfort yesterday afternoon without any precipitating factors, stating he had not had anything to drink prior to the pain occurring. Patient endorses being a regular smoker of one half to three- quarter pack cigarettes daily for the past 3 years, stating that prior to that he had quit for a couple of years. Additionally, patient endorses drinking "a few" beers on a daily basis. He states that he has been following up with Dr. Ontiveros regularly as an outpatient due to previous episodes of abdominal pain, however different from the one he is currently having today. CT of the abdomen/pelvis and gallbladder ultrasound indicated a possible 7 mm calculus in the common bile duct at the pancreatic head and some pancreatic inflammation suggestive for pancreatitis. GI and cardiology have been consulted. Initial lab work done in the ER showed WBCs 14.5, Hgb 15, Hct 47.0, MCV 108.7, PLT 194, PT 29.5, INR 3.0, PTT 36.7, Na 135, BUN12, Cr 0.90, Bilirubin 4.4, AST 72, ALT 106, Alkaline Phosphotase 266, Lipase 6,189. UA showed 1+ protein anbd 2+ Bilirubin. EKG done in the ER showed heart rate of 148, A fib w/RVR, Right axis deviation, Low voltage QRS, Moderate ST depression Chest x-ray done in the ER showed no actue pulmonary process CT brain done showed no acute intracranial process, with minimal chronic appearing periventricular white matter ischemic-type changes CT Abdomen/Pelvis showed no suspicious renal or ureteral stones. Notes perinephric stranding bilaterally. Gallbladder US showed cholelithiasis without US evidence for acute cholecystitis, dilated common bile duct - possible 7 mm calculous in the common bile duct at the pancreatic head on CT (retrospectively), additionally there appears to be pancreatic inflammatory changes suggestive of pancreatitis (retrospectively); and hepatomegaly noted. 07/17 - Patient seen at bedside today. Preliminary blood cultures on this patient and so far show no growth. Labs drawn this morning are currently pending, PT down to 13.2 and INR down to 1.3. Per GIs recommendation patient's last dose of Coumadin, for DVT and A-fib, was given yesterday. GI will continue to follow closely, indicating the patient will likely undergo an ERCP once the pancreatitis is improved as well as the INR. Additionally, surgery was consulted and they are recommending outpatient laparoscopic cholecystectomy following GIs completion of the ERCP to remove the stone causing choledocholithiasis. Additionally recommend continue with antibiotics, maintain ing clear liquid diet and reviewing repeated labs in the morning (currently pending). Additionally, cardiology was consulted who are recommending resuming the patient's home cardiac medications, Coumadin to be resumed once cleared by general surgery and GI, with no additional cardiology workup at this time and they are signing off the patient. Requested the patient follow-up in the office in 1 to 2 weeks following discharge. Upon discussion with Dr. Ontiveros she states that with the patient's current INR being 1.3, as well as his continued symptomatic pancreatitis, the ERCP cannot be completed today. The soonest that will be completed is Saturday morning. When seen this morning patient states he was feeling slightly better, however very anxious to have this completed in taking care of, he was notably displeased that the ERCP would be unable to be completed today. Labs drawn today - WBCs 8.3, Hgb 12.2, Hct 38.4, PLT 174, PT 25.3, INR 2.6, sodium REVIEW OF SYSTEMS: CONSTITUTIONAL: No fever, no malaise, no fatigue. HEENT: No recent visual problems or hearing problems. Denied any sore throat. CARDIOVASCULAR: No chest pain, orthopnea, PND, no palpitations, no syncope. PULMONARY: No shortness of breath, no cough, no hemoptysis. GASTROINTESTINAL: Endorses vomiting twice at home, prior to arrival at the emergency department. NEUROLOGICAL: No headaches, no weakness, no numbness. HEMATOLOGICAL: Denies any bleeding or petechiae. GENITOURINARY: Denies any burning micturition, frequency, or urgency. MUSCULOSKELETAL/RHEUMATOLOGICAL: Denies any joint pain, swelling, or any muscle pain. ENDOCRINE: Denies any polyuria or polydipsia. The rest of the 14-point review of systems is negative. PHYSICAL EXAMINATION: GENERAL: The patient is alert and oriented x3, in some distress. Well developed, well nourished. HEENT: Pupils are round and equally reacting to light. EOMI. No scleral icterus. No conjunctival pallor. Normocephalic, atraumatic. No pharyngeal erythema. No t hyromegaly. CARDIOVASCULAR: S1 and S2 present. No murmurs, rubs, or gallops. PULMONARY: Chest is clear to auscultation, no wheezing or crackles. ABDOMEN: Some tenderness to palpation, mainly in the epigastric area. Abdominal distention noted. No palpable organomegaly. MUSCULOSKELETAL: No joint swelling or deformity. EXTREMITIES: No cyanosis, clubbing, or pedal edema. NEUROLOGICAL: Gross neurological examination did not reveal any focal deficits. SKIN: No rashes. Assessment and plan # Possible cholangitis or gallstone pancreatitis secondary to choledocholithiasis 7 mm calculus from the common bile duct at the pancreatic head on CT abdomen/pelvis GI and general surgery on board Per GIs request patient n.p.o. after midnight, possibly planning MRCP/ERCP tomorrow General Surgery consulted for potential cholecystectomy; potentially following removal of the 7 mm calculus found, bile duct Per GIs recommendation ERCP to be completed on Saturday, not today due to patient's INR of 1.3 as well as continued signs and symptoms of pancreatitis General Surgery notes that they will follow-up with an outpatient laparoscopic cholecystectomy following resolution of his pancreatitis and ERCP being completed by GI # Sepsis secondary to choledocholithiasis; possibly resolved Per the emergency department blood cultures ordered Elevated WBCs, tachycardia indicate > 2 score on the SIRS criteria As of 07/17 WBCs 8.3, patient is no longer tachycardic with a heart rate of 94 Patient is continued receiving Zosyn; had initially received vancomycin as well # Hyperbilirubinemia secondary to choledocholithiasis 7 mm calculus from the common bile duct at the pancreatic head on CT abdomen/pelvis GI and general surgery on board Per GIs request patient n.p.o. after midnight, possibly planning MRCP/ERCP tomorrow General Surgery consulted for potential cholecystectomy; potentially following removal of the 7 mm calculus found, bile duct Remains elevated at 6.0 # Atrial Fibrillation w/RVR Patient has history of A-fib on blood thinner; currently being held per GI's request Continue to monitor vital signs, monitor CBC, monitor CMP, continue telemetry monitoring Labs and medication were reviewed. Continue with symptomatic treatment. Resume home medication. Dictation was produced using [employer] dictation software. please excuse any grammatical, word or spelling errors. Dr. Lucien MD I have performed a history and physical examination and medical decision making of this patient, discussed the same with the the resident, and agree with the assessment and plan as written. I performed brief physical exam. Objective - Vital Signs Vital signs: Vital Signs Temp 98.1 F 07/16/24 13:39 Pulse 81 07/17/24 04:00 Resp 20 07/17/24 04:00 BP 103/58 07/17/24 04:00 Pulse Ox 95 07/17/24 04:00 FiO2 Intake & Output 07/16/24 07/17/24 07/17/24 18:59 06:59 18:59 Output Total 2500 800 Balance -2500 -800 Weight 111.584 kg Output: Urine 2500 800 - Labs CBC & Chem 7: 07/17/24 06:11 07/17/24 06:11 Labs: Abnormal Lab Results - Last 24 Hours (Table) 07/16/24 07/16/24 07/16/24 Range/Units 09:09 09:09 09:09 RBC 3.57 L (4.30-5.90) m/uL Hgb 12.2 L (13.0-17.5) gm/dL MCV 111.6 H (80.0-100.0) fL MCHC 30.7 L (31.0-37.0) g/dL Macrocytosis Marked A PT 25.3 H (10.0-12.5) sec INR 2.6 H (<1.2) Chloride 110 H (98-107) mmol/L Calcium 8.3 L (8.4-10.2) mg/dL Total Bilirubin 4.0 H (0.2-1.3) mg/dL ALT 70 H (4-49) U/L Alkaline Phosphatase 193 H (38-126) U/L Total Protein 5.9 L (6.3-8.2) g/dL Albumin 3.1 L (3.5-5.0) g/dL 07/17/24 Range/Units 06:11 RBC (4.30-5.90) m/uL Hgb (13.0-17.5) gm/dL MCV (80.0-100.0) fL MCHC (31.0-37.0) g/dL Macrocytosis PT 13.2 H (10.0-12.5) sec INR 1.3 H (<1.2) Chloride (98-107) mmol/L Calcium (8.4-10.2) mg/dL Total Bilirubin (0.2-1.3) mg/dL ALT (4-49) U/L Alkaline Phosphatase (38-126) U/L Total Protein (6.3-8.2) g/dL Albumin (3.5-5.0) g/dL Microbiology - Last 24 Hours (Table) 07/15/24 18:30 Blood Culture - Preliminary Blood
--- NOTE | 2024-07-17 12:30 | P.PN ---
Subjective Progress Note Date: 07/17/24 CHIEF COMPLAINT: Gallstone pancreatitis HISTORY OF PRESENT ILLNESS: Patient denies any abdominal pain. He tolerated liquid diet. It has been advanced to low-fat diet at lunch. GI service is planning ERCP on Saturday. Patient did have a temp of 102 last night. WBC 8.3 Hgb 12.2 INR is down from 2.6-1.3 after vitamin K. Total bilirubin is up from 4-6.0 AST 48 ALT is down from 70-61 alk phos 203. Lipase is down from 1660-7358 PHYSICAL EXAM: VITAL SIGNS: Reviewed. GENERAL: Well-developed in no acute distress. ABDOMEN: Soft. Nondistended. Nontender. NEUROLOGIC: Alert and oriented. Cranial nerves II through XII grossly intact. ASSESSMENT: 1. Gallstone pancreatitis 2. Choledocholithiasis 3. Cholecystitis 4. Daily alcohol use 5. History of DVT and A-fib on Coumadin at home PLAN: -Recommend outpatient laparoscopic cholecystectomy -GI service planning ERCP Saturday -Agree with low-fat diet Physician Ironer Machine note has been reviewed by physician. Signing provider agrees with the documented findings, assessment, and plan of care. Objective - Vital Signs Vital signs: Vital Signs Temp 98.1 F 07/16/24 13:39 Pulse 94 07/17/24 11:05 Resp 18 07/17/24 11:05 BP 126/98 07/17/24 11:05 Pulse Ox 95 07/17/24 11:05 FiO2 Intake & Output 07/16/24 07/17/24 07/17/24 18:59 06:59 18:59 Output Total 2500 800 850 Balance -2500 -800 -850 Weight 111.584 kg Output: Urine 2500 800 850 Uretheral (Urrutia) 850 - Labs CBC & Chem 7: 07/17/24 06:11 07/17/24 06:11 Labs: Abnormal Lab Results - Last 24 Hours (Table) 07/17/24 07/17/24 07/17/24 Range/Units 06:11 06:11 06:11 RBC 3.45 L (4.30-5.90) m/uL Hgb 12.2 L (13.0-17.5) gm/dL Hct 38.4 L (39.0-53.0) % MCV 111.2 H (80.0-100.0) fL MCH 35.4 H (25.0-35.0) pg RDW 16.2 H (11.5-15.5) % Macrocytosis Marked A PT 13.2 H (10.0-12.5) sec INR 1.3 H (<1.2) Glucose 67 L (74-99) mg/dL Total Bilirubin 6.0 H (0.2-1.3) mg/dL ALT 61 H (4-49) U/L Alkaline Phosphatase 203 H (38-126) U/L Total Protein 6.1 L (6.3-8.2) g/dL Albumin 3.2 L (3.5-5.0) g/dL Lipase 2154 H (23-300) U/L Microbiology - Last 24 Hours (Table) 07/15/24 18:30 Blood Culture - Preliminary Blood
--- NOTE | 2024-07-17 13:05 | P.PN ---
Progress Note - Text Progress Note Date: 07/17/24 Was notified by nursing that patient is wanting to leave AGAINST MEDICAL ADVICE. Medical team notified. Went to talk to patient and his who was at the bedside to discuss importance of staying in the hospital for monitoring with intended ERCP on Saturday when INR continues to improve and patient has been off his Coumadin. Also discussed transfer to another hospital with GI services who provide ERCP and patient and are declining. Discussed risks of infection, worsening pancreatitis and patient may become septic. Both patient and his state they understand the risks and they still want to leave. Patient's states she may end up taking him to [facility] after he gets home and rests or if he becomes more sick. Dr. Debbie Ontiveros I agree with the dictator's note, documented as a scribe by Brittany Booker.
[2024-07-17 13:12] VITALS: TEMP 98.2
--- NOTE | 2024-07-17 14:03 | P.DS ---
Providers Date of admission: 07/15/24 20:58 Attending physician: Jw Montes MD Consults: 07/15/24 20:56 Consult Physician Routine Consulting Provider: [facility] Consult Reason/Comments: chest pain Do you want consulting provider notified?: Yes Consult Physician Routine Consulting Provider: Brunilda Ontiveros Consult Reason/Comments: hyperbilirubinemia, elevated LFTs Do you want consulting provider notified?: Yes 07/16/24 10:55 Consult Physician Routine Consulting Provider: Rai Garcia Consult Reason/Comments: gall stone pancreatitis Do you want consulting provider notified?: Yes Primary care physician: [facility] Course: Discharge diagnoses; # Possible cholangitis or gallstone pancreatitis secondary to choledocholithiasis 7 mm calculus from the common bile duct at the pancreatic head on CT abdomen/pelvis GI and general surgery on board Per GIs request patient n.p.o. after midnight, possibly planning MRCP/ERCP tomorrow General Surgery consulted for potential cholecystectomy; potentially following removal of the 7 mm calculus found, bile duct Per GIs recommendation ERCP to be completed on Saturday, not today due to clifford ent's INR of 1.3 as well as continued signs and symptoms of pancreatitis General Surgery notes that they will follow-up with an outpatient laparoscopic cholecystectomy following resolution of his pancreatitis and ERCP being completed by GI # Sepsis secondary to choledocholithiasis; possibly resolved Per the emergency department blood cultures ordered Elevated WBCs, tachycardia indicate > 2 score on the SIRS criteria As of 07/17 WBCs 8.3, patient is no longer tachycardic with a heart rate of 94 Patient is continued receiving Zosyn; had initially received vancomycin as well # Hyperbilirubinemia secondary to choledocholithiasis 7 mm calculus from the common bile duct at the pancreatic head on CT abdomen/pelvis GI and general surgery on board Per GIs request patient n.p.o. after midnight, possibly planning MRCP/ERCP tomorrow General Surgery consulted for potential cholecystectomy; potentially following removal of the 7 mm calculus found, bile duct Remains elevated at 6.0 # Atrial Fibrillation w/RVR Patient has history of A-fib on blood thinner; currently being held per GI's request Hospital course; 73-year-old man presented to the emergency department with complaints of weakness. According to the patients he had an earlier episode where he was confused, which had occurred prior to arrival. He notes having a past medical history of atrial fibrillation on blood thinners, abdominal aortic bypass surgery, hypertension, hyperlipidemia. He has been complaining of somewhat worsening upper back pain localized to the level of the kidneys, as well as stating a positive report of hematuria. He denies any chest pain, shortness of breath or abdominal pain. He does state he had one episode of nausea with nonbilious nonbloody emesis, but has not had anything since. Patient has no complaints, other than that, at this time. On arrival patients blood pressure was 113/53, HR 143, RR 20 and O2 saturation of 94% on room air; current BP 11/57, HR 89, RR 20, O2 saturation of 96% on room air. Patient has been receiving cefepime and vancomycin in the emergency department and has been made NPO after midninght. Additionally blood cultures have been ordered. Patient states he began feeling this discomfort yesterday afternoon without any precipitating factors, stating he had not had anything to drink prior to the pain occurring. Patient endorses being a regular smoker of one half to three- quarter pack cigarettes daily for the past 3 years, stating that prior to that he had quit for a couple of years. Additionally, patient endorses drinking "a few" beers on a daily basis. He states that he has been following up with Dr. Ontiveros regularly as an outpatient due to previous episodes of abdominal pain, however different from the one he is currently having today. CT of the abdomen/pelvis and gallbladder ultrasound indicated a possible 7 mm calculus in the common bile duct at the pancreatic head and some pancreatic inflammation suggestive for pancreatitis. GI and cardiology have been consulted. Initial lab work done in the ER showed WBCs 14.5, Hgb 15, Hct 47.0, MCV 108.7, P LT 194, PT 29.5, INR 3.0, PTT 36.7, Na 135, BUN12, Cr 0.90, Bilirubin 4.4, AST 72, ALT 106, Alkaline Phosphotase 266, Lipase 6,189. UA showed 1+ protein anbd 2+ Bilirubin. EKG done in the ER showed heart rate of 148, A fib w/RVR, Right axis deviation, Low voltage QRS, Moderate ST depression Chest x-ray done in the ER showed no actue pulmonary process CT brain done showed no acute intracranial process, with minimal chronic appearing periventricular white matter ischemic-type changes CT Abdomen/Pelvis showed no suspicious renal or ureteral stones. Notes perinephric stranding bilaterally. Gallbladder US showed cholelithiasis without US evidence for acute cholecystitis, dilated common bile duct - possible 7 mm calculous in the common bile duct at the pancreatic head on CT (retrospectively), additionally there appears to be pancreatic inflammatory changes suggestive of pancreatitis (retrospectively); and hepatomegaly noted. 07/17 - Patient seen at bedside today. Preliminary blood cultures on this patient and so far show no growth. Labs drawn this morning are currently pending, PT down to 13.2 and INR down to 1.3. Per GIs recommendation patient's last dose of Coumadin, for DVT and A-fib, was given yesterday. GI will continue to follow closely, indicating the patient will likely undergo an ERCP once the pancreatitis is improved as well as the INR. Additionally, surgery was co nsulted and they are recommending outpatient laparoscopic cholecystectomy following GIs completion of the ERCP to remove the stone causing choledocholithiasis. Additionally recommend continue with antibiotics, maintaining clear liquid diet and reviewing repeated labs in the morning (currently pending). Additionally, cardiology was consulted who are recommending resuming the patient's home cardiac medications, Coumadin to be resumed once cleared by general surgery and GI, with no additional cardiology workup at this time and they are signing off the patient. Requested the patient follow-up in the office in 1 to 2 weeks following discharge. Upon discussion with Dr. Ontiveros she states that with the patient's current INR being 1.3, as well as his continued symptomatic pancreatitis, the ERCP cannot be completed today. The soonest that will be completed is Saturday morning. When seen this morning patient states he was feeling slightly better, however very anxious to have this completed in taking care of, he was notably displeased that the ERCP would be unable to be completed today. Labs drawn today - WBCs 8.3, Hgb 12.2, Hct 38.4, PLT 174, PT 25.3, INR 2.6, sodium Patient decided to leave AMA. PHYSICAL EXAMINATION: GENERAL: The patient is alert and oriented x3, in some distress. Well developed, well nourished. HEENT: Pupils are round and equally reacting to light. EOMI. No scleral icterus. No conjunctival pallor. Normocephalic, atraumatic. No pharyngeal erythema. No thyromegaly. CARDIOVASCULAR: S1 and S2 present. No murmurs, rubs, or gallops. PULMONARY: Chest is clear to auscultation, no wheezing or crackles. ABDOMEN: Some tenderness to palpation, mainly in the epigastric area. Abdominal distention noted. No palpable organomegaly. MUSCULOSKELETAL: No joint swelling or deformity. EXTREMITIES: No cyanosis, clubbing, or pedal edema. NEUROLOGICAL: Gross neurological examination did not reveal any focal deficits. SKIN: No rashes. Dictation was produced using [employer] dictation software. please excuse any grammatical, word or spelling errors. Dr. Lucien MD I have performed a history and physical examination and medical decision making of this patient, discussed the same with the the resident, and agree with the assessment and plan as written. I performed brief physical exam. Patient Condition at Discharge: Poor Plan - Discharge Summary New Discharge Prescriptions: No Action Gabapentin 600 mg PO BID Warfarin [Coumadin] 5 mg PO HS Rosuvastatin [Crestor] 20 mg PO HS Metoprolol Tartrate 25 mg PO BID Hyoscyamine Sulfate [Levsin-Sl] 0.125 mg SL Q4H PRN PRN Reason: Gi Upset Furosemide [Lasix] 20 mg PO DAILY Folic Acid 1 mg PO DAILY Potassium Chloride ER [K-Dur 20] 20 meq PO BID Omeprazole 40 mg PO BID Discharge Medication List Gabapentin 600 mg PO BID 06/06/18 [History] Warfarin [Coumadin] 5 mg PO HS 12/03/18 [History] Folic Acid 1 mg PO DAILY 01/14/24 [History] Furosemide [Lasix] 20 mg PO DAILY 01/14/24 [History] Metoprolol Tartrate 25 mg PO BID 01/14/24 [History] Rosuvastatin [Crestor] 20 mg PO HS 01/14/24 [History] Hyoscyamine Sulfate [Levsin-Sl] 0.125 mg SL Q4H PRN 07/15/24 [History] Omeprazole 40 mg PO BID 07/15/24 [History] Potassium Chloride ER [K-Dur 20] 20 meq PO BID 07/15/24 [History] Follow up Appointment(s)/Referral(s): Chilango Elizondo DO [Primary Care Provider] - 1-2 days Discharge Disposition: LEFT AGAINST MEDICAL ADVICE
[2024-07-17] MEDS ORDERED: METOPROLOL TARTRATE 50 MG TAB PO SCH (21:00)
== END 2024-07-17 14:30 | disposition left against medical advice (07) | DRG 871 ==
LOC: EC 16:16 → 3SCARD 20:58
PROVIDERS: ADMIT Internal Medicine; ATTEND Internal Medicine
DX: A41.9 Sepsis, unspecified organism (principal); K85.10 Biliary acute pancreatitis without necrosis or infection; I48.20 Chronic atrial fibrillation, unspecified; K80.61 Calculus of gallbladder and bile duct with cholecystitis, unspecified, with obstruction; K80.30 Calculus of bile duct with cholangitis, unspecified, without obstruction; E78.5 Hyperlipidemia, unspecified; F17.210 Nicotine dependence, cigarettes, uncomplicated; I10 Essential (primary) hypertension; I25.10 Atherosclerotic heart disease of native coronary artery without angina pectoris; I73.9 Peripheral vascular disease, unspecified; J44.9 Chronic obstructive pulmonary disease, unspecified; K21.9 Gastro-esophageal reflux disease without esophagitis; Z53.29 Procedure and treatment not carried out because of patient's decision for other reasons; Z86.718 Personal history of other venous thrombosis and embolism; Z79.899 Other long term (current) drug therapy; Z79.01 Long term (current) use of anticoagulants; Z95.820 Peripheral vascular angioplasty status with implants and grafts
CPT/HCPCS: 36415; 51702; 70450; 71045; 71046; 74176; 76705; 80053; 80306; 80320; 81001; 82140; 82248; 82803; 83605; 83690; 83880; 84484; 85025; 85027; 85610; 85730; 87040; 87636; 93005; 96361; 96365; 96366; 96367; 96375; 99291

== ENCOUNTER → 2024-10-12 | Outpatient (CLI) | payer MEDICARE ==
[2024-10-12 14:38] LABS: African American GFR (CKD) >90 (>60 ml/min/1.73 sqM); Blood Urea Nitrogen 10 mg/dL (9-20); Non-African American GFR(CKD) >90 (>60 ml/min/1.73 sqM)
--- NOTE | 2024-10-13 21:30 | CT ---
EXAMINATION TYPE: CT angio abd aorta w/Runoff DATE OF EXAM: 10/12/2024 4:16 PM COMPARISON: 09/23/2024 CLINICAL INDICATION: Male, 73 years old with history of I70.213 ATHSCL LITTLE SHELL TRIBE ARTERIES OF EXTRM, Righ t leg swelling and redness x 1 week TECHNIQUE: CT abdomen pelvis without contrast followed by CT Angio abdomen pelvis. Multiple thin slic e sub-millimeter images were obtained before and after administration of contrast. 3-D reconstructed images and maximum intensity projection images were obtained. CT angio abd aorta w/Runoff CT Contrast: Contrast used:120 mL of Isovue 370 without and with IV Contrast, Oral contrast used: None CT DLP: 2608 mGycm, Automated exposure control for dose reduction was used. FINDINGS: CTA Abdomen and pelvis: No evidence for intramural hematoma on noncontrast imaging. The visualized de scending thoracic aorta is within normal limits for size. The celiac axis, superior mesenteric artery , 2 left and single right renal arteries are patent. The inferior mesenteric artery reconstitutes eladio rtly after takeoff and is patent. Aortic graft with bilateral common iliac grafts extending into the external iliacs and inserting on the common femoral arteries are patent. The [place] common iliac samuel matt and external iliac arteries are occluded. No evidence for dissection or aneurysmal dilation. CTA Lower extremities: Right: Occlusion of the right superficial femoral artery just past its origin which extends to the po pliteal artery. The anterior and posterior tibial arteries are thought to be patent. Incidental calci fication limits evaluation. Left: The common femoral and superficial femoral arteries are patent. The popliteal artery is patent. Anterior and posterior tibial arteries as well as the peroneal artery are patent. Anterior and poste rior tibial arteries cross the ankle. LOWER CHEST: No evidence of focal consolidation, pneumothorax or pleural effusion. Aortic valve calci fications and coronary artery cusp patient's partially visualized. LIVER: Unremarkable GALLBLADDER AND BILE DUCTS: The gallbladder surgically absent. PANCREAS: Unremarkable. SPLEEN: Unremarkable. ADRENAL GLANDS: Unremarkable. KIDNEYS AND URETERS: No evidence of hydronephrosis or renal calculus. The ureters are unremarkable. PELVIS BLADDER: Unremarkable REPRODUCTIVE: Unremarkable. ABDOMEN & PELVIS STOMACH AND BOWEL: No evidence of bowel obstruction. Scattered colonic diverticula. PERITONEUM: No evidence of pneumoperitoneum or free fluid. VASCULATURE: No evidence of aortic aneurysm. MUSCULOSKELETAL: No acute osseous abnormalities, bilateral rib deformities likely representing prior fractures with healing changes. LYMPH NODES: No gross evidence for lymphadenopathy. SOFT TISSUE/ABDOMINAL WALL: Unremarkable IMPRESSION: 1. Occlusion of the right superficial femoral artery extending from just past its origin to the popl iteal artery with reconstitution. The right posterior and anterior tibial arteries are patent and tho ught to cross the ankle however there is extensive calcification along the course which limits evalua tion. 2. Both anterior and posterior tibial arteries cross the left ankle. No evidence for left lower extr emity occlusion. 3. 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 4. 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 5. Cholecystectomy. 6. Cholelithiasis. [facility], , 10/13/2024 9:28 PM
== END | disposition home or self-care (01) ==
LOC: RADCTMAIN 13:59
PROVIDERS: ATTEND Surgery
DX: I70.213 Atherosclerosis of native arteries of extremities with intermittent claudication, bilateral legs (principal); I70.0 Atherosclerosis of aorta; K80.20 Calculus of gallbladder without cholecystitis without obstruction
CPT/HCPCS: 82565; 84520; 75635; 36415; Q9967